=== PATIENT | male | born 1970 | race Caucasian/White ===

== ENCOUNTER 2021-01-13 15:51 | Emergency (ER) | payer OTHER, SELFPAY ==
--- NOTE | 2021-01-13 15:54 | XRR_ITS ---
PROCEDURE INFORMATION: Exam: XR Chest Exam date and time: 01/13/2021 3:54 PM Age: 50 years old Clinical indication: Shortness of breath; Additional info: SOB TECHNIQUE: Imaging protocol: XR of the chest. Views: 1 view. COMPARISON: [facility] Cervical Spine 5 views 04/16/2017 4:26 PM FINDINGS: Lungs: Unremarkable. No consolidation. Pleural spaces: Unremarkable. No pleural effusion. No pneumothorax. Heart/Mediastinum: Unremarkable. No cardiomegaly. Bones/joints: Unremarkable. XR/XR chest 1V portable [id number] IMPRESSION: No acute findings.
[2021-01-13 16:00] VITALS: BP 138/81; PULSE 89; RESP 19; TEMP 37.2; O2SAT 97; BMI 37.3
[2021-01-13 16:35] VITALS: RESP 17; O2SAT 95
--- NOTE | 2021-01-13 16:36 | PC.NURSE ---
RR even and non-labored.
[2021-01-13 16:43] LABS: SARS Covid-2 Antigen Positive (Negative)
--- NOTE | 2021-01-13 16:53 | W.ED.COVID ---
HPI - COVID General: Chief Complaint: COVID symptoms Stated Complaint: COVID SYMPTOMS/COUGHING/FEVER/WEAKNESS Time Seen by Provider: 01/13/21 16:24 Source: patient and family (daughter) Mode of arrival: ambulatory Limitations: no limitations Triage information: Has fever, cough or shortness of breath. No known COVID + exposure last 14 days History of Present Illness: HPI Narrative: Patient is a nice 50-year-old male who presents to ED today along with his daughter for concerns of COVID symptoms. Father complains of a nonproductive cough, shortness of breath, difficulty breathing, fatigue, and body aches. Symptoms been present over the past 7 days. He states he tried to go to [facility] for rapid COVID test but they were unfortunately closed. PMH significiant for diabetes. MD complaint: has COVID symptoms Prior covid testing: no COVID 19 common symptoms: positive non-productive cough, dyspnea, fatigue and body aches; negative headache(s), throat pain, nasal congestion, nausea, vomiting or diarrhea COVID 19 other sytmptoms: negative chest pain Onset (ago): day(s) Severity: moderate Pertinent comorbid conditions: diabetes and obesity Treatment prior to arrival: none COVID Results: SARS-CoV-2 Antigen (Rapid) Positive (Negative) H 01/13/21 16:00 01/13/21 Review of Systems Const: Reports: body aches and fatigue ENMT: Reports: other (loss taste/smell); Denies: throat pain, odynophagia, ear or mastoid pain, nasal discharge or nasal congestion Card: Denies: chest pain, palpitations, lightheadedness, syncope or pre-syncope Resp: Reports: dyspnea and non-productive cough; Denies: hemoptysis GI: Denies: abdominal pain, nausea, vomiting or diarrhea Musc: Denies: neck pain or back pain Skin/Breast: Denies: rash Neuro: Denies: headache(s), numbness in extremities, weakness in extremities, sensory changes or dizziness Physical Exam Const: COMMON NORMALS: no acute distress, patient oriented x3, no limitations and alert GENERAL APPEARANCE: cooperative NUTRITIONAL APPEARANCE: overweight ORIENTATION/CONSCIOUSNESS: Yes awake, Yes oriented to person, Yes oriented to place and Yes oriented to time HENMT: COMMON NORMALS: normocephalic and atraumatic HEAD & SCALP: normocephalic and atraumatic Resp: COMMON NORMALS: normal respiratory effort and clear to auscultation bilaterally AUSCULTATION: clear to auscultation bilaterally Cardio: COMMON NORMALS: regular rate and regular rhythm RATE: regular rate RHYTHM: regular rhythm Extremity: COMMON NORMALS: normal to inspection Neuro: COMMON NORMALS: patient oriented x3 SENSORIUM/ORIENTATION: Yes alert, Yes oriented to person, Yes oriented to place and Yes oriented to time Skin: COMMON NORMALS: no rashes or lesions noted GENERAL SKIN EXAM: no rashes or lesions noted Course Vital Signs: Vital signs: Vital Signs Temperature 98.2 F 01/13/21 19:00 Pulse Rate 84 01/13/21 19:00 Respiratory Rate 17 01/13/21 19:00 Blood Pressure 127/74 01/13/21 19:00 Pulse Oximetry 95 01/13/21 19:00 MDM - COVID MDM Narrative: Medical decision making narrative: Patient is COVID positive. He clinically appears well. His vital signs are stable. He is not requiring oxygen. CXR normal. Patient will be discharged and going straight to the infusion center for his monoclonal antibody infusion. Return to ED precautions given to patient and daughter. Differential Diagnosis: Differential diagnosis: Likely COVID 19 Lab Data: Labs: Lab Results 01/13/21 Range/Units 16:00 SARS-CoV-2 Ag (Rap id) Positive H (Negative) Imaging Data: CXR: Radiologist's impression: [address] [address] XRay Report Signed Patient: Michael Ravi Unit #: [id number] : 1970 Age/Sex: 50 / M ADM Date: 01/13/21 Loc: ER Room/Bed: Attending Dr: Ordering Provider/Ordering MD: Génesis Riley Date of Service: 01/13/21 Procedure(s): XR chest 1V portable [id number] Accession Number(s): [id number] Report Number: [id number] PROCEDURE INFORMATION: Exam: XR Chest Exam date and time: 01/13/2021 3:54 PM Age: 50 years old Clinical indication: Shortness of breath; Additional info: SOB TECHNIQUE: Imaging protocol: XR of the chest. Views: 1 view. COMPARISON: [facility] Cervical Spine 5 views 04/16/2017 4:26 PM FINDINGS: Lungs: Unremarkable. No consolidation. Pleural spaces: Unremarkable. No pleural effusion. No pneumothorax. Heart/Mediastinum: Unremarkable. No cardiomegaly. Bones/joints: Unremarkable. XR/XR chest 1V portable [id number] IMPRESSION: No acute findings. Dictated By: Kaye Goodwin MD Signed By: Kaye Goodwin MD Signed Date/Time: 01/13/211726 DD/ 23 COVID Results: SARS-CoV-2 Antigen (Rapid) Positive (Negative) H 01/13/21 16:00 01/13/21 Monoclonal Antibody - ED Inclusion/Exclusion Criteria age >/= 12 years, weight >/= 40kg /88lbs, symptom onset less than 10 days ago and + direct Sars-Cov-2 test less than 7-10 days ago obesity (BMI >25 or 85%til for age) and diabetes not requiring hospitalization, not requiring oxygen (if not chronically on oxygen) and no increase oxygen requirement (if chronically on oxygen) Patient education patient/family/caregiver received/reviewed fact sheet, Emergency Use Authorization/unapproved drug status discussed with patient/family/caregiver, alternatives to this treatment discussed with patient/family/caregiver, risks and benefits of medication reviewed with patient/family/caregiver, patient/family/caregiver given opportunity for questions, which were answered and patient consents to receiving Monoclonal Antibody Treatment Plan for treatment Meets criteria for Monoclonal Antibody infusion Ordering Monoclonal Antibody infusion for today Discharge Plan Discharge Clinical Impression: COVID-19 Condition: Stable Discharge Orders: Discharge ED (Routine); Ordered 01/13/21 Ordered By: Génesis Riley Coding Level of Care Code ED President Celebrity [employer] for [employer]
[2021-01-13 17:09] VITALS: PULSE 80; RESP 18; O2SAT 95
[2021-01-13] MEDS: dexamethasone 10 mg/mL INJ 6 MG IVP (17:13)
[2021-01-13 17:30] VITALS: BP 140/88; PULSE 83; RESP 18; TEMP 36.9; O2SAT 83
[2021-01-13 17:57] VITALS: BP 123/77; PULSE 78; RESP 17; TEMP 37; O2SAT 95
--- NOTE | 2021-01-13 18:49 | PC.NURSE ---
Patient resting in chair, post COVID antibiody infusion,RR even and nonlabored. Tolerating infusion w/o complications or symptoms or reaction noted.
[2021-01-13 19:00] VITALS: BP 127/74; PULSE 84; RESP 17; TEMP 36.8; O2SAT 95
== END 2021-01-13 19:00 ==
PROVIDERS: Emergency Provider Physician Assistant
DX: U07.1 COVID-19 (principal)
CPT/HCPCS: 71045; 87426; 96365; 96375; 99284; J1100

== ENCOUNTER 2021-06-26 15:57 | Outpatient (CLI) | payer OTHER, SELFPAY ==
--- NOTE | 2021-06-26 | CTR_ITS ---
PROCEDURE INFORMATION: Exam: CT Cervical Spine With Contrast Exam date and time: 06/26/2021 4:08 PM Age: 50 years old Clinical indication: Neck pain and other: Pain/tingling RT arm. Bump on RT side head; Additional info: Abnormal xray of spine TECHNIQUE: Imaging protocol: Computed tomography images of the cervical spine with intravenous contrast. Radiation optimization: All CT scans at this facility use at least one of these dose optimization techniques: automated exposure control; mA and/or kV adjustment per patient size (includes targeted exams where dose is matched to clinical indication); or iterative reconstruction. Contrast material: OMNI 300; Contrast volume: 95 ml; Contrast route: INTRAVENOUS (IV); COMPARISON: CR XR cervical spine 4-5V [id number] 05/09/2021 11:04 AM RADIATION DOSE METRICS: Total DLP (mGy-cm): 1011.72 FINDINGS: Bones/joints: Severe compression deformity/fracture of the C4 vertebral body with irregular intravertebral lucency. No additional sites of fracture or irregular lucencies throughout the cervical spine. Discs/Spinal canal/Neural foramina: There is at least moderate central canal stenosis posterior to C4 at the site of fracture. Lungs: Calcified granulomas noted in the right lung apex. Soft tissues: There is an irregular heterogeneously enhancing mass centered within the right parietal temporal calvarium measuring 4.0 x 4.4 cm series 3, image 4. There is both intracranial and extracranial extension of the mass with erosion of the inner and outer tables of the calvarium and mass effect on the adjacent right parietal and temporal lobes. CT/CT cervical spine w con [id number] IMPRESSION: 1. Pathologic severe compression fracture of C4 with irregular lucent lesion, most likely a metastatic lesion. This is causing at least moderate central canal stenosis posterior to C4 at the site of fracture. Correlate clinically for signs of cord compression in which case further evaluation with MRI cervical spine is recommended. 2. Irregular heterogeneously enhancing mass centered within the right parietal temporal calvarium. There is both intracranial and extracranial extension of the mass with mass effect on the adjacent right parietal and temporal lobes. This is also most likely a metastatic lesion.
[2021-06-26] MEDS: iohexol 300 mg/mL 100 mL Btl IV (16:23)
== END 2021-06-26 15:58 | disposition home or self-care (01) ==
LOC: RAD 16:02
PROVIDERS: PCP Family Medicine; Visit Provider Family Medicine
DX: R93.7 Abnormal findings on diagnostic imaging of other parts of musculoskeletal system (principal); M84.48XA Pathological fracture, other site, initial encounter for fracture
CPT/HCPCS: 72126

== ENCOUNTER 2021-06-27 07:50 | Inpatient (IN) | payer OTHER, SELFPAY ==
[2021-06-27] VITALS (9 sets, daily range): BP systolic 128–131; BP diastolic 78–86; PULSE 93–103; RESP 16–22; TEMP 36.8–37; O2SAT 90–94; BMI 35.9
--- NOTE | 2021-06-27 07:57 | ED_ITS ---
HPI - General Adult General: Chief complaint: Headache Stated complaint: neck and head pain Time Seen by Provider: 06/27/21 07:56 History of Present Illness: HPI narrative: 50-year-old male presents emergency room with complaint of neck pain headache and a right parietal mass. He had a CT of his cervical spine yesterday which showed metastatic lesion to the C4 vertebrae this had been seen previously in early May. It was noted in the radiology report and primary care doc was working on getting an MRI done but there were some logistical issues evidently with prior authorization as well as some difficulty for the patient due to claustrophobia. He is coming in with severe head and neck pain today. Rates the pain 8 out of 10. He denies any vision changes he has not had any seizures he has had a little bit of difficulty speaking. He has some pain in his right eye as well. He has no known previous cancers. Patient had COVID in January 2021. He had noticed over the last several weeks with progressive loss of function in his right shoulder p articularly with abduction he can get out to about 75 degrees but unable to go any higher he has also noticed weakness progressively worsening in the right arm. Onset (ago): week(s) Location: head and neck Radiation: extremity (Right upper extremity) Quality: burning Pain Consistency: constant Relieving factors: medication Exacerbating factors: movement Associated symptoms: Reports weakness; Deny chest pain, confusion, cough, diaphoresis, decreased appetite, dyspnea, fevers/chills, headache(s), malaise, nausea, rash, palpitations, seizures, short of breath, syncope or vomiting Treatments prior to arrival: other (Prescription pain medication) Review of Systems Const: Denies: malaise or diaphoresis ENMT: Denies: throat pain, ear or mastoid pain, nasal discharge or nasal congestion Card: Denies: chest pain, palpitations or syncope Resp: Denies: dyspnea GI: Denies: nausea or vomiting : Denies: flank pain, dysuria, urinary frequency or urinary urgency Skin/Breast: Denies: rash Neuro: Denies: headache(s) or confusion PFS ED PFSH: Medical History (Updated 06/27/21 @ 11:48 by Ray Ferrer DO) Diabetes mellitus GERD (gastroesophageal reflux disease) Gout Family History (Updated 06/27/21 @ 10:58 by Darell De Anda MD) Other CAD (coronary artery disease) Cancer Diabetes Social History (Updated 06/27/21 @ 10:58 by Darell De Anda MD) Smoking and tobacco status: never smoked Alcohol intake: current Physical Exam Const: COMMON NORMALS: no acute distress GENERAL APPEARANCE: cooperative and comfortable ORIENTATION/CONSCIOUSNESS: Yes awake, Yes oriented to person, Yes oriented to place and Yes oriented to time HENMT: COMMON NORMALS: atraumatic and hearing grossly normal bilaterally HEAD & SCALP: atraumatic OTHER: Obvious deformity in the right parietal area with a soft tissue mass that is approximately 6 x 3 cm Neck/C-Spine: COMMON NORMALS: no JVD Resp: COMMON NORMALS: normal respiratory effort, No retractions, No use of accessory muscles and clear to auscultation bilaterally AUSCULTATION: clear to auscultation bilaterally Cardio: COMMON NORMALS: no JVD, regular rate, regular rhythm and No murmurs present (Cardio) RATE: regular rate RHYTHM: regular rhythm GI: COMMON NORMALS: Soft to palpation and No hepatosplenomegaly present AUSCULTATION: Yes normoactive bowel sounds PALPATION: Yes Soft to palpation, No Tenderness to palpation present (GI), No Guarding due to palpation present (GI) and Yes No hepatosplenomegaly present Extremity: COMMON NORMALS: normal to inspection, capillary refill normal, no clubbing, cyanosis or edema, no calf tenderness and no pedal edema NARRATIVE EXTREMITY EXAM: Loss of abduction in the right shoulder Neuro: SENSORIUM/ORIENTATION: Yes oriented to person, Yes oriented to place and Yes oriented to time Skin: COMMON NORMALS: no rashes or lesions noted GENERAL SKIN EXAM: no rashes or lesions noted Course Vital Signs: Vital signs: Vital Signs Temperature 98.6 F 06/27/21 07:59 Pulse Rate 93 06/27/21 09:25 Respiratory Rate 16 06/27/21 09:25 Blood Pressure 130/79 06/27/21 09:25 Pulse Oximetry 93 06/27/21 09:25 MDM - General Adult MDM Narrative: Medical decision making narrative: Patient has an unstable C4 metastatic lesion clinically appears to be creating neural impingement. I talked to his primary all of this is relatively new particularly the peripheral neural impingement signs. Talk to Dr. Quevedo will admit the patient to the hospitalist for pain control Dr. Quevedo will consult stabilize her fracture he should be able to get tissue for pathology at that time as well. Discussed with the patient and the family. Also reviewed with him all the CT and laboratory findings. Particular the areas of concern of metastasis. Discussed with Dr. Carpenter and with Dr. Chandler as well. Serum plasmapheresis with reflex light chain studies were ordered. Also ordered a PSA. Discussed with Dr. Driver he has written orders. Lab Data: Labs: Lab Results 06/27/21 06/27/21 06/27/21 08:56 08:56 08:56 WBC 5.0 10^3/uL 10^3/ uL (4.0-10.0) RBC 3.80 10^6/uL L 10 ^6/uL (4.1-5.3) Hgb 13.6 g/dL g/dL (11.7-16.6) Hct 38.5 % L % (42.0-52.0) MCV 101.3 fl H fl (80-94) MCH 35.8 pg H pg (28.0-34.0) MCHC 35.3 g/dL g/dL (30.0-36.0) RDW 11.9 % L % (12.1-15.1) Plt Count 104 10^3/cmm L 10 ^3/cmm (130-400) MPV 11.3 fL H fL (7.4-10.4) Neut % (Auto) 67.9 % % Lymph % (Auto) 15.1 % % [place] % (Auto) 12.0 % % Eos % (Auto) 4.4 % % Baso % (Auto) 0.2 % % Neut # (Auto) 3.38 10^3/uL 10^3 /uL (1.8-7.7) Lymph # (Auto) 0.8 10^3/uL 10^3/ uL (0.8-4.8) [place] # (Auto) 0.6 10^3/uL 10^3/ uL (0.2-0.9) Eos # (Auto) 0.2 10^3/uL 10^3/ uL (0.0-0.8) Baso # (Auto) 0.0 10^3/uL 10^3/ uL (0.0-0.1) Nucleated RBC % (a uto) 0 % % Nucleated RBCs # 0.0 /100WBC /100W BC PT 15.10 SECONDS H S ECONDS (12.1-14.9) INR 1.16 (0.8-1.2) APTT 33.0 SECONDS SECO NDS (23.9-36.7) Sodium 128 mmol/L L mmol /L (136-145) Potassium 4.2 mmol/L mmol/L (3.5-5.1) Chloride 95 mmol/L L mmol/ L (98-107) Carbon Dioxide 19 mmol/L L mmol/ L (22-29) Anion Gap 18.2 (5-19) BUN 10 mg/dL mg/dL (6-20) Creatinine 0.7 mg/dL mg/dL (0.7-1.2) GFR Calculation 118.9 mL/min mL/m in (90-130) Glucose 159 mg/dL H mg/dL (65-115) Calculated Osmolal ity 268 mOsm/kg L mOs m/kg (285-295) Calcium 8.4 mg/dL L mg/dL (8.5-10.5) Total Bilirubin 0.8 mg/dL mg/dL (0.15-1.2) AST 39 U/L U/L (0-40) ALT 30 U/L U/L (0-41) Alkaline Phosphata se 129 IU/L IU/L (40-130) Total Protein 6.9 g/dL g/dL (6.6-8.7) Albumin 3.4 g/dL L g/dL (3.5-5.2) Globulin 3.5 g/dL g/dL (1.3-4.6) Prostate Specific Ag 06/27/21 08:56 WBC RBC Hgb Hct MCV MCH MCHC RDW Plt Count MPV Neut % (Auto) Lymph % (Auto) [place] % (Auto) Eos % (Auto) Baso % (Auto) Neut # (Auto) Lymph # (Auto) [place] # (Auto) Eos # (Auto) Baso # (Auto) Nucleated RBC % (a uto) Nucleated RBCs # PT INR APTT Sodium Potassium Chloride Carbon Dioxide Anion Gap BUN Creatinine GFR Calculation Glucose Calculated Osmolal ity Calcium Total Bilirubin AST ALT Alkaline Phosphata se Total Protein Albumin Globulin Prostate Specific Ag 0.566 ng/mL ng/mL (0-4) Discharge Plan Discharge Patient Disposition: Admitted As Inpatient Admit Provider: Darell De Anda Clinical Impression: Cervical spine fracture, Multiple lesions of metastatic malignancy, Right arm weakness, Hyponatremia, Thrombocytopenia, Anxiety, Diabetes mellitus Condition: Stable Coding Level of Care Code ED [employer]fit[employer] Supervisor for Chg Fwd Exam Comprehensive
--- NOTE | 2021-06-27 07:58 | XR_ITS ---
WS: [id number] Exam: XR chest 1V portable [id number] Date/Time of Exam: 06/27/2021 8:00 AM Reason For Exam: dyspnea/cough Comparison 01/13/2021. The lungs are clear and fully expanded. Normal cardiomediastinal silhouette. No pleural effusions. Sm oothly marginated pleural-based mass seen along the upper lateral left pleural cavity is a new findin g since previous study. Normal bony structures. Recommendations: Nonemergent contrast CT scan of the chest should be considered for further workup. XR/XR chest 1V portable [id number] IMPRESSION: 1. Smoothly marginated pleural-based mass along the upper lateral left pleural cavity. This is a new finding since prior study. Remaining aspects the chest ar e normal.
--- NOTE | 2021-06-27 08:13 | CT_ITS ---
WS: [id number] CT HEAD WITH AND WITHOUT CONTRAST HISTORY: R parietal mass TECHNIQUE: Noncontrast 2.5 mm axial images obtained from the vertex to the skull base. Additional cindi ging performed at 2.5 mm axial images status post IV contrast. Bone and soft tissue windows are revie wed. All CT scans at [facility] use at least one of these dose optimization techniques: autom ated exposure control; mA and/or kV adjustment per patient size (includes targeted exams where dose i s matched to clinical indication); or iterative reconstruction. CONTRAST: Omnipaque 300; 95 mL IV. DLP: 950.93 mGy.cm COMPARISON: None available. Noncontrast evaluation is negative for acute hemorrhage. Mild decreased attenuation periventricular w juan david matter from chronic ischemic disease. Small amount of cerebral edema in the parietal lobe. No in farct. There is a large enhancing destructive mass centered predominantly in the RIGHT parietal bone. There are a few scattered foci of increased density which are probably calcifications seen on the unenhance d study. On the postcontrast images there is moderate enhancement of this mass which is destroying th e inner and outer tables of the skull and extending into the brain. There is enhancement and displace ment of the dura. There is actually a focal nodule which appears to extend through the dura into the brain parenchyma. There is adjacent cerebral edema surrounding the lesion. This destructive mass exte nds over length of 4.6 cm and transversely by 4.0 and anterior posterior by 4.4 cm. The nodular compo nent that may have extended through the dura measures 1.5 x 1.2 cm. There are a few additional very s mall lytic lesions throughout the skull which could be an early metastatic sites or benign skull lesi ons. Dural venous sinuses are normally enhancing. Visualized chitimacha of Prasad is unremarkable. Paranasal sinuses as visualized: Mucoperiosteal thickening in the maxillary sinuses. Mastoid air cells: Clear. CT/CT head wo/w con [id number] IMPRESSION: 1. 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 Soft tissue mass extends into the dura. There is dural enhancement and displacement with a small focal nodule appears to extend through the dura into the parietal lobe. 2. Small amount of cerebral edema surrounding the metastatic nodule. 3. No intracranial hemorrhage. 4. There are a few and additional nonspecific lucencies within the skull which could be additional metastatic sites which are very small. 5. No hydrocephalus or midline shift. Notified Ray Ferrer DO at 06/27/2021 9:25 AM.
--- NOTE | 2021-06-27 08:17 | XR_ITS ---
WS: [email or web address] Exam: XR hip LT 2-3V wo/w pel* [id number] Date/Time of Exam: 06/27/2021 8:18 AM Reason For Exam: hip pain No hip fracture or dislocation. 4.2 cm lytic lesion in the left iliac bone. Soft tissues are unremark able. XR/XR hip LT 2-3V wo/w pel* [id number] IMPRESSION: 1. No acute hip fracture or dislocation. 2. 4.2 cm lytic lesion in the left iliac bone. This may represent bone metastas is. Primary bone malignancy also possible but less likely.
--- NOTE | 2021-06-27 08:27 | CT_ITS ---
WS: [id number] CT CHEST WITH INTRAVENOUS CONTRAST HISTORY: chest mass TECHNIQUE: Contiguous 5 mm axial imaging performed on the thorax. Coronal and sagittal reformats are submitted. All CT scans at [facility] use at least one of these dose optimization techniques: automated exposure control; mA and/or kV adjustment per patient size (includes targeted exams where dose is matched to clinical indication); or iterative reconstruction. CONTRAST: Omnipaque 300; 95 mL IV. DLP: 995.33 mGy.cm COMPARISON: Chest radiograph 06/27/2021 Lungs and central airway: No focal pulmonary mass or nodule. No pneumonia. No atelectasis. Pleura: No pleural effusion. Heart and pericardium: Normal size heart with no pericardial effusion. Mediastinum and gray: There are a few small mediastinal and hilar lymph nodes. Subcarinal lymph node measures 9 mm in short axis diameter but appears slightly necrotic. Vessels: Normal size aortic and pulmonary artery. No coronary artery calcifications. There is a large destructive lesion involving the lateral fourth rib. There is bone destruction and i ncreased soft tissue surrounding the rib. The entire mass measures 5.5 x 3.9 cm and is extending to i nvolve the pleura. There are multiple additional metastatic lesions. Metastatic site within the LEFT lateral T4 vertebral body. Greater than 50% lytic, expansile involvement of the T10 vertebral body. T umor is extending through the posterior vertebral body and is probably in about in the thecal sac. Fo leonard metastatic site in the posterior T11 spinous process. There is an additional soft tissue mass wit h bone expansion and soft tissue tumor involving the inferior border of the RIGHT scapula. This mass measures 5.[address]/CT chest w con* [id number] IMPRESSION: 1. Numerous expansile metastatic disease within the thorax. There are lytic an d expansile lesions within the LEFT lateral fourth rib, inferior RIGHT scapula, mid T10 vertebral body. The T10 vertebral body lesion is encroaching upon the thecal sac. Consider differential of metastatic renal carcinoma, thyroid carcin cr, hepatocellular carcinoma and melanoma. Several of these lesions should be accessible for biopsy including the RIGHT scapular lesion. 2. Additional smaller nonexpansile lesions within the T4 vertebral body and th e spinous process of T11. 3. No significant mediastinal adenopathy. There is a single subcarinal 9 mm ly mph node that may be necrotic.
[2021-06-27] MEDS: iohexol 300 mg/mL 100 mL Btl IV (08:44)
[2021-06-27] MEDS: morphine 4 mg/mL SDV 1 mL IVP ×2 (08:45→09:23)
[2021-06-27] MEDS: dexamethasone 10 mg/mL INJ IVP (08:45)
[2021-06-27] MEDS: ondansetron 2 mg/ML SDV 2 mL 4 MG IVP (08:45)
[2021-06-27 09:06] LABS: Basophils % 0.2 %; Eosinophils # 0.2 10^3/uL (0.0-0.8); Eosinophils % 4.4 %; Hematocrit 38.5 % (42.0-52.0); Hemoglobin 13.6 g/dL (11.7-16.6); Lymphocytes # 0.8 10^3/uL (0.8-4.8); Lymphocytes % 15.1 %; Mean Corpuscular HGB Conc 35.3 g/dL (30.0-36.0); Mean Corpuscular Hemoglobin 35.8 pg (28.0-34.0); Mean Corpuscular Volume 101.3 fl (80-94); Mean Platelet Volume 11.3 fL (7.4-10.4); Monocytes # 0.6 10^3/uL (0.2-0.9); Neutrophils # 3.38 10^3/uL (1.8-7.7); Neutrophils % 67.9 %; Nucleated Red Blood Cells % 0 %; Platelet Count 104 10^3/cmm (130-400); Red Cell Distribution Width 11.9 % (12.1-15.1)
[2021-06-27 09:32] LABS: INR 1.16 (0.8-1.2)
[2021-06-27 09:41] LABS: Alanine Aminotransferase 30 U/L (0-41); Albumin Level 3.4 g/dL (3.5-5.2); Alkaline Phosphatase 129 IU/L (40-130); Anion Gap 18.2 (5-19); Aspartate Amino Transferase 39 U/L (0-40); Blood Urea Nitrogen 10 mg/dL (6-20); Calcium 8.4 mg/dL (8.5-10.5); Carbon Dioxide 19 mmol/L (22-29); Chloride 95 mmol/L (98-107); Globulin 3.5 g/dL (1.3-4.6); Glomerular Filtration Rate 118.9 mL/min (90-130); Glucose 159 mg/dL (65-115); Osmolality Calculated 268 mOsm/kg (285-295); Potassium 4.2 mmol/L (3.5-5.1); Sodium 128 mmol/L (136-145); Total Bilirubin 0.8 mg/dL (0.15-1.2); Total Protein 6.9 g/dL (6.6-8.7)
--- NOTE | 2021-06-27 09:59 | PC.PHAR ---
pts daughter verified pts medications
[2021-06-27 10:12] LABS: Prostate Specific Antigen 0.566 ng/mL (0-4)
--- NOTE | 2021-06-27 10:45 | P.HP_ITS ---
Providers/Chief Complaint Primary Care Provider: Jasvir Thomas MD Chief Complaint: neck and head pain History of Present Illness Michael Ravi is a 50 year old male who presents to the ER with neck pain, headache, and right arm weakness. His neck started hurting around January or February 2021. His right arm started feeling weak and he had difficulty raising his shoulder around 02/2021. He got a cervical spine X-ray in 05/2021 which showed some lucency in C4. The plan was to get a follow-up MRI but the patient was unable to go through with this due to claustrophobia. He received a cervical spine CT yesterday which showed severe compression C4 fracture with irregular lucent lesion. He also noticed a bump appear on the right side of his head about 4-5 weeks ago which has gotten bigger in the past 7-10 days. He has had a headache ever since he had COVID back in 01/2021 and states that recently the headache has been primarily located near his right mandaen region. 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 He is able to ambulate at home and has no trouble swallowing. He does have some right-sided facial pain when he bites down. He is able to control his urine and states that his hand strength has been normal. Denies any sensory deficits in his legs. He is not vaccinated and states that he had COVID back in 07/2019 and 01/2021. In the emergency department he received some morphine, as well as dexamethasone. Review of Systems General: Reports: 10 or more systems reviewed and unremarkable except in HPI and below Const: Reports: fatigue; Denies: fever(s) or chills Eyes: Denies: change in vision ENMT: Denies: throat pain Card: Denies: chest pain Resp: Denies: dyspnea GI: Denies: abdominal pain : Denies: flank pain Musc: Reports: neck pain Skin/Breast: Denies: rash Neuro: Reports: headache(s) Psych: Denies: memory loss Endo: Denies: polyuria Reji/Lymph: Denies: easy bruising All/Imm: Denies: urticaria Medications/Allergies Home Medications Medication Instructions Recorded Confirmed Last Taken Type dulaglutide [Trulicity] 1.5 mg SUBCUT Q7D 06/27/21 06/27/21 Unknown History hydrocodone-acetaminophen 1 - 2 tab PO QID PRN 06/27/21 06/27/21 Unknown History ibuprofen 800 mg PO Q8H PRN 06/27/21 06/27/21 Unknown History metformin 500 mg PO DAILY@12 06/27/21 06/27/21 Unknown History naproxen sodium [Aleve] 220 mg PO Q12H PRN 06/27/21 06/27/21 Unknown History omeprazole-sodium bicarbonate 1 cap PO DAILY 06/27/21 06/27/21 Unknown History [Zegerid OTC] Allergies Allergy/AdvReac Type Severity Reaction Status Date / Time No Known Allergies Allergy Verified 06/27/21 09:59 PFSH Acute PFSH: Medical History (Updated 06/27/21 @ 11:24 by Darell De Anda MD) Diabetes mellitus GERD (gastroesophageal reflux disease) Gout Family History (Updated 06/27/21 @ 10:58 by Darell De Anda MD) Other CAD (coronary artery disease) Cancer Diabetes Social History (Updated 06/27/21 @ 10:58 by Darell De Anda MD) Smoking and tobacco status: never smoked Alcohol intake: current Other PFSH information: Denies any significant surgeries. Reports he read drinks around 3-4 drinks a day. Family history was significant for colon cancer in a sibling. Parent with lung cancer. Vitals/I&O/Wt Last Vital Signs Temp 98.6 F 06/27/21 07:59 Pulse 93 06/27/21 09:25 Resp 16 06/27/21 09:25 BP 130/79 06/27/21 09:25 Pulse Ox 93 06/27/21 09:25 Weight last 48 hrs Weight 113.398 kg Physical Exam Narrative: EXAM NARRATIVE: General exam no distress HEENT: Soft tissue mass felt right parietal area. Oropharynx generally clear. Neck, patient currently in c-collar Cardiovascular regular rate and rhythm, no murmur Lungs clear no wheezing or crackles Abdomen soft nontender positive bowel sounds. Obese. No obvious organomegaly. exam was deferred Extremities no cyanosis clubbing or edema. Skin with some erythematous macules and excoriation anterior shins Neuro: Good strength upper and lower extremities. Cerebellar function not te sted. Restriction moving right arm, above breast level. Data : 06/27/21 08:56 06/27/21 08:56 Other data: MCV slightly high at 101 INR 1.16, PTT 33 LFTs normal Calcium 8.4, albumin 3.4 PSA is normal Serum protein electrophoresis is pending Chest CT with multiple expansile metastatic lesions in the thorax, involving the right scapula, T10, T11, left fourth rib, in addition to several other areas. Hip and pelvis x-ray demonstrate a left iliac lesion Head CT demonstrates a destructive metastatic skull lesion right parietal bone extending into the dura with a small focal extension through the dura into the parietal lobe. Small amount of cerebral edema. A few other nonspecific lucencies in the skull are also noted. Cervical CT demonstrated pathologic severe compression C4, likely metastatic, with moderate cannel stenosis. A&P Assessment and plan (1) Cervical spine fracture: This appears to be a pathologic severe compression fracture of C4. C-collar has been placed Orthopedic spine surgery consultation Etiology of likely malignancy under investigation. Biopsy can be performed of bone affected during time of surgery. Status: Acute (2) Right arm weakness: This may be more mechanical, and impingement in nature than from his neck lesion. Significant tumor is noted right scapular lesion that could cause impingement upon the rotator cuff. He has good distal strength Status: Acute (3) Multiple lesions of metastatic malignancy: Multiple lesions are noted Significant lesion right parietal area with extension into the dura, and parietal lobe with a small amount of surrounding edema Dexamethasone 10 mg IV given in the emergency department. We will continue dexamethasone every 6 hours while in the hospital, with plan to discharge on 4 mg twice daily ultimately. Differential diagnosis is large, including multiple myeloma, thyroid cancer, prostate cancer, melanoma, renal cell cancer CT abdomen and pelvis will also need to be obtained. As he received contrast today we will defer this until tomorrow. This will need to be with contrast. PSA, CEA, AFP, urinalysis ordered Status: Acute (4) Hyponatremia: Relatively mild hyponatremia currently. May be related to malignancy Check TSH, cortisol Repeat sodium level tomorrow At this point no saline, fluid restriction, etc. is warranted. Status: Acute (5) Thrombocytopenia: May be secondary to malignancy. Platelet count 104 currently. Continue to monitor. Status: Acute (6) Macrocytosis: Check B12 and folate Initiate thiamine May be related to his alcohol intake Status: Acute (7) Anxiety: Patient reports significant anxiety. Add Ativan as needed Status: Acute (8) Diabetes mellitus: Sliding scale insulin Consistent carb diet Status: Acute Additional A&P Information History of alcohol use. Doubt he will have withdrawal but consider CIWA protocol if this occurs Multiple other medical problems as outlined in past medical history Full code SCDs for DVT prophylaxis, possible spinal surgery in the next 24 hours. High risk for anticoagulation currently secondary to this as well as thrombocytope rylie. Attestations Medical Necessity Statement*: Will need greater than 2 midnight stay for evaluation and treatment of pathologic fracture of C4 which needs stabilization. 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
[2021-06-27] MEDS: LORazepam 2 mg/mL INJ 1 mL IVP (10:52)
[2021-06-27 11:50] LABS: Estmated Average Glucose 128; Hemoglobin A1C 6.1 % (4.0-6.0)
[2021-06-27 11:57] LABS: Carcinoembryonic Antigen 2.1 ng/mL (0.0-4.7)
[2021-06-27 12:35] LABS: Vitamin B12 1949 pg/mL (232-1245)
[2021-06-27 12:48] LABS: Folate Level 10.5 ng/mL (4.5-32.2)
[2021-06-27 13:15] LABS: Cortisol Random 4.34 ug/dL (2.47-19.5)
--- NOTE | 2021-06-27 15:36 | PM.CONSULT ---
Providers/Reason For Consult Consulting Physician/Specialty*: hospitalist Reason for Consult*: C4 tumor Attending Physician: Darell De Anda MD Primary Care Provider: Jasvir Thomas MD History of Present Illness History of Present Illness Michael Ravi is a 50 year old male presents to the ER with neck pain, headache, and right arm weakness. His neck started hurting around January or February 2021. His right arm started feeling weak and he had difficulty raising his shoulder around 02/2021. He got a cervical spine X-ray in 05/2021 which showed some lucency in C4. The plan was to get a follow-up MRI but the patient was unable to go through with this due to claustrophobia. He received a cervical spine CT yesterday which showed severe compression C4 fracture with irregular lucent lesion. He also noticed a bump appear on the right side of his head about 4-5 weeks ago which has gotten bigger in the past 7-10 days. He has had a headache ever since he had COVID back in 01/2021 and states that recently the headache has been primarily located near his right mosque region. 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 He is able to ambulate at home and has no trouble swallowing. He does have some right-sided facial pain when he bites down. He is able to control his urine and states that his hand strength has been normal. Denies any sensory deficits in his legs. He is not vaccinated and states that he had COVID back in 07/2019 and 01/2021. Review of Systems General: Reports: 10 or more systems reviewed and unremarkable except in HPI and below Const: Reports: fatigue; Denies: fever(s), chills, malaise or diaphoresis Eyes: Denies: change in vision ENMT: Denies: throat pain, ear or mastoid pain, nasal discharge or nasal congestion Card: Denies: chest pain, palpitations or syncope Resp: Denies: dyspnea GI: Denies: abdominal pain, nausea or vomiting : Denies: flank pain, dysuria, urinary frequency or urinary urgency Musc: Reports: neck pain Skin/Breast: Denies: rash Neuro: Reports: headache(s); Denies: confusion Psych: Denies: memory loss Endo: Denies: polyuria Reji/Lymph: Denies: easy bruising All/Imm: Denies: urticaria Medications/Allergies Home Medications Medication Instructions Recorded Confirmed Last Taken Type dulaglutide [Trulicity] 1.5 mg SUBCUT Q7D 06/27/21 06/27/21 Unknown History hydrocodone-acetaminophen 1 - 2 tab PO QID PRN 06/27/21 06/27/21 Unknown History ibuprofen 800 mg PO Q8H PRN 06/27/21 06/27/21 Unknown History metformin 500 mg PO DAILY@12 06/27/21 06/27/21 Unknown History naproxen sodium [Aleve] 220 mg PO Q12H PRN 06/27/21 06/27/21 Unknown History omeprazole-sodium bicarbonate 1 cap PO DAILY 06/27/21 06/27/21 Unknown History [Zegerid OTC] Allergies Allergy/AdvReac Type Severity Reaction Status Date / Time No Known Allergies Allergy Verified 06/27/21 09:59 PFSH Acute PFSH: Medical History (Updated 06/27/21 @ 15:39 by Andrew Quevedo DO) Diabetes mellitus GERD (gastroesophageal reflux disease) Gout Family History (Updated 06/27/21 @ 10:58 by Darell De Anda MD) Other CAD (coronary artery disease) Cancer Diabetes Social History (Updated 06/27/21 @ 10:58 by Darell De Anda MD) Smoking and tobacco status: never smoked Alcohol intake: current Other PFSH information: Denies any significant surgeries. Reports he read drinks around 3-4 drinks a day. Family history was significant for colon cancer in a sibling. Parent with lung cancer. Vitals/I&O/Wt Last Vital Signs Temp 98.6 F 06/27/21 07:59 Pulse 95 06/27/21 14:50 Resp 16 06/27/21 14:50 BP 130/86 06/27/21 14:50 Pulse Ox 93 06/27/21 14:50 Weight last 48 hrs Weight 250 lb Physical Exam Narrative: EXAM NARRATIVE: EXAM NARRATIVE: General exam no distress HEENT: Soft tissue mass felt right parietal area. Oropharynx generally clear. Neck, patient currently in c-collar Cardiovascular regular rate and rhythm, no murmur Lungs clear no wheezing or crackles Abdomen soft nontender positive bowel sounds. Obese. No obvious organomegaly. exam was deferred Extremities no cyanosis clubbing or edema. Skin with some erythematous macules and excoriation anterior shins Neuro: Good strength upper and lower extremities. Cerebellar function not tested. Restriction moving right arm, above breast level. 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
[2021-06-27] MEDS: morphine 4 mg/mL SDV 1 mL 2 MG IVP (18:23)
[2021-06-27] MEDS: dexamethasone 4 mg/mL INJ IVP (18:25)
[2021-06-27] MEDS: thiamine 100 mg Tablet PO (18:27)
[2021-06-27] MEDS: multivitamin therapeutic Tablet 1 TAB PO (18:27)
[2021-06-27] MEDS: LORazepam 2 mg/mL INJ 1 mL 1 MG IVP (19:03)
[2021-06-27 20:17] LABS: Bilirubin Urine Neg (Negative); Blood Urine Neg (Negative); Glucose Urine UA 1+ (Normal); Ketones Urine Negative (Negative); Leukocyte Esterase Urine Negative (Negative); Nitrate Urine Negative (Negative); Protein Urine Neg (Negative); Urine Appearance Clear (CLEAR); Urine Color Yellow (Yellow); Urobilinogen Urine 1 mg/dL (Negative); pH Urine 7 (5-7)
[2021-06-27 20:19] LABS: Add Urine Culture? No; Bacteria Urine TRACE /hpf
--- NOTE | 2021-06-27 20:24 | PC.NURSE ---
i reported high pulse 101 to nurse
[2021-06-27 21:32] LABS: Glucose Point of Care 335 mg/dL (70-110)
[2021-06-27 21:33] LABS: Glucose Point of Care 237 mg/dL (70-110)
[2021-06-27] MEDS: insulin lispro 100 unit/1 mL SUBCUT (21:34)
[2021-06-28] VITALS (23 sets, daily range): BP systolic 112–147; BP diastolic 70–93; PULSE 78–100; RESP 12–185; TEMP 36.2–36.8; O2SAT 89–98
--- NOTE | 2021-06-28 | SCC_ITS ---
Procedure Done: 1. Anterior diskectomy C3/4 2. Anterior discectomy C4/5 3. corpectomy C4 greater than 50% 4. Insertion of Corpectomy cage C3-C5 5. Instrumentation with anterior plate from C3-C5 6. Use of allograft 7. Biopsy of C4 tumor 35.1 seconds of fluoroscopic guidance, for a cumulative dose of 1.87 mGy, was provided to Dr. Quevedo by the radiology department. C-arm images of the cervical spine were saved for the patient's permanent record. TARAD
--- NOTE | 2021-06-28 | XR_ITS ---
WS: [id number] Exam: XR cervical spine 3V* [id number] Date/Time of Exam: 06/28/2021 12:00 AM Reason For Exam: acdf Limited intraoperative lateral and AP C-arm images of the mid cervical spine are submitted for evalua tion. There is anterior plate and screw fixation of the C-spine from C3 to C5. An intervening spacer has be en positioned at the C4 level. The exact location of the spacer is undetermined. There may be some po sterior displacement of the inferior aspect of the spacer. An endotracheal tube is visualized in the airway. No other significant finding on this limited exam.
[2021-06-28] MEDS: dexamethasone 4 mg/mL INJ IVP ×4 (00:15→23:56)
[2021-06-28] MEDS: LORazepam 2 mg/mL INJ 1 mL 1 MG IVP ×3 (00:15→22:53)
[2021-06-28] MEDS: morphine 4 mg/mL SDV 1 mL 2 MG IVP ×5 (00:15→23:05)
[2021-06-28 06:28] LABS: Glucose Point of Care 248 mg/dL (70-110)
[2021-06-28 07:17] LABS: Basophils % 0.1 %; Hematocrit 40.5 % (42.0-52.0); Hemoglobin 14.5 g/dL (11.7-16.6); Lymphocytes # 0.6 10^3/uL (0.8-4.8); Lymphocytes % 5.9 %; Mean Corpuscular HGB Conc 35.8 g/dL (30.0-36.0); Mean Corpuscular Volume 100.5 fl (80-94); Mean Platelet Volume 11.9 fL (7.4-10.4); Monocytes # 0.4 10^3/uL (0.2-0.9); Monocytes % 4.5 %; Neutrophils % 88.9 %; Nucleated Red Blood Cells % 0 %; Platelet Count 129 10^3/cmm (130-400); Red Blood Count 4.03 10^6/uL (4.1-5.3); Red Cell Distribution Width 11.8 % (12.1-15.1); White Blood Count 9.6 10^3/uL (4.0-10.0)
[2021-06-28 07:33] LABS: Blood Urea Nitrogen 16 mg/dL (6-20); Calcium 8.9 mg/dL (8.5-10.5); Carbon Dioxide 20 mmol/L (22-29); Chloride 99 mmol/L (98-107); Glucose 237 mg/dL (65-115); Osmolality Calculated 285 mOsm/kg (285-295); Sodium 133 mmol/L (136-145)
[2021-06-28 07:37] LABS: Anion Gap 19.1 (5-19); Potassium 5.1 mmol/L (3.5-5.1)
[2021-06-28] MEDS: pantoprazole DR 40 mg Tablet PO (09:58)
[2021-06-28 10:53] LABS: PROTEIN, TOTAL 6.8 g/dL (6.1-8.1)
--- NOTE | 2021-06-28 11:52 | ANES.PREANE2 ---
Pre-Anesthetic Assessment Pre-Anesthetic Assessment: Height/Weight: Height 1.78 m Weight 113.398 kg Temp Pulse Resp BP Pulse Ox 97.2 F L 98 18 136/87 98 06/28/21 11:35 06/28/21 11:35 06/28/21 11:35 06/28/21 11:35 06/28/21 11:35 Preop Diagnosis: Malignancy Proposed Procedure: Operation Date: 06/28/21 12:00 Proposed Procedures p Anterior Cervical Discectomy & Fusion C3-C5 ACDF, C4 CORPECTOMY(Not Applicable) - Andrew Quevedo, DO Familial anesthetic complications: None Was Beta Berta taken within 24 hours: N/A Was Clonidine taken within 24 hours: N/A Last intake: > 8hrs Social: Social History: Alcohol (up to 6 beers a night) and Tobacco (chews) Exam: Pre-Anes Outpt Exam: alert, oriented x 3, clear to auscultation bilaterally and regular rate & rhythm Airway: MP: 3 Dentition: Full Additional comments: cervical collar in place GI: GI: GERD Metabolic: Metabolic: DM and Morbid obesity Musc/skel: Comments: malignancy Neuropsych: Neuropsych: Anxiety Anesthetic Plan: ASA status: 4 Anesthesia: General Risk of > 500 ml blood loss (7ml/kg in children): No Medications/Allergies Current Medications: Current Medications Generic Name Dose Route Start Last Admin Trade Name Freq PRN Reason Stop Dose Admin Dexamethasone 4 mg 06/27/21 18:05 06/28/21 06:46 Dexamethasone 4 Mg/Ml Inj IVP 4 mg Q6H ARIEL Administration Insulin Human Lisp ro 0 unit 06/27/21 18:05 06/28/21 11:24 Insulin Lispro 1 00 Unit/1 Ml SUBCUT Not Given WM&BEDTIME ARIEL Protocol Lorazepam 1 mg 06/27/21 18:05 06/28/21 06:47 Lorazepam 2 Mg/M l Inj 1 Ml IVP 1 mg Q6H PRN Administration ANXIETY Morphine Sulfate 2 mg 06/27/21 18:06/28/21 10:43 Morphine 4 Mg/Ml Sdv 1 Ml IVP 2 mg Q4H PRN Administration SEVERE PAIN Pantoprazole Sodiu m 40 mg 06/28/21 09:00 06/28/21 09:[address] 40 Mg Tablet PO 40 mg DAILY ARIEL Administration Thiamine Mononitra te 100 mg 06/27/21 18:05 06/28/21 08:58 Thiamine 100 Mg Tablet PO Not Given DAILY ARIEL PFSH Anesthesia PFSH: Medical History (Updated 06/27/21 @ 15:39 by Andrew Quevedo DO) Diabetes mellitus GERD (gastroesophageal reflux disease) Gout Family History (Updated 06/27/21 @ 10:58 by Darell De Anda MD) Other CAD (coronary artery disease) Cancer Diabetes Social History (Updated 06/27/21 @ 10:58 by Darell De Anda MD) Smoking and tobacco status: never smoked Alcohol intake: current Supplemental PFSH Information: Denies any significant surgeries. Reports he read drinks around 3-4 drinks a day. Family history was significant for colon cancer in a sibling. Parent with lung cancer. Data Anesthesia CBC & Chem 7: 06/28/21 06:57 06/28/21 06:57 Other Labs: Laboratory Results - last 48 hr 06/27/21 06/27/21 06/27/21 05:06 08:56 08:56 WBC 5.0 RBC 3.80 L Hgb 13.6 Hct 38.5 L MCV 101.3 H MCH 35.8 H MCHC 35.3 RDW 11.9 L Plt Count 104 L MPV 11.3 H Neut % (Auto) 67.9 Lymph % (Auto) 15.1 [place] % (Auto) 12.0 Eos % (Auto) 4.4 Baso % (Auto) 0.2 Neut # (Auto) 3.38 Lymph # (Auto) 0.8 [place] # (Auto) 0.6 Eos # (Auto) 0.2 Baso # (Auto) 0.0 Nucleated RBC % (auto) 0 Nucleated RBCs # 0.0 PT INR APTT Sodium 128 L Potassium 4.2 Chloride 95 L Carbon Dioxide 19 L Anion Gap 18.2 BUN 10 Creatinine 0.7 GFR Calculation 118.9 Glucose 159 H POC Glucose Estimat Average Glucose 128 Hemoglobin A1c 6.1 H Calculated Osmolality 268 L Calcium 8.4 L Total Bilirubin 0.8 AST 39 ALT 30 Alkaline Phosphatase 129 Total Protein 6.9 Albumin 3.4 L Globulin 3.5 Tumor Marker AFP Carcinoembryonic Ag Prostate Specific Ag Vitamin B12 Folate TSH Random Cortisol Urine Color Urine Appearance Urine pH Ur Specific [place] Urine Protein Urine Glucose (UA) Urine Ketones Urine Blood Urine Nitrate Urine Bilirubin Urine Urobilinogen Ur Leukocyte Esterase Urine RBC Urine WBC Ur Squamous Epith Cells Amorphous Sediment Urine Bacteria 06/27/21 06/27/21 06/27/21 08:56 08:56 08:56 WBC RBC Hgb Hct MCV MCH MCHC RDW Plt Count MPV Neut % (Auto) Lymph % (Auto) [place] % (Auto) Eos % (Auto) Baso % (Auto) Neut # (Auto) Lymph # (Auto) [place] # (Auto) Eos # (Auto) Baso # (Auto) Nucleated RBC % (auto) Nucleated RBCs # PT 15.10 H INR 1.16 APTT 33.0 Sodium Potassium Chloride Carbon Dioxide Anion Gap BUN Creatinine GFR Calculation Glucose POC Glucose Estimat Average Glucose Hemoglobin A1c Calculated Osmolality Calcium Total Bilirubin AST ALT Alkaline Phosphatase Total Protein 6.8 Albumin Globulin Tumor Marker AFP Carcinoembryonic Ag Prostate Specific Ag 0.566 Vitamin B12 Folate TSH Random Cortisol Urine Color Urine Appearance Urine pH Ur Specific [place] Urine Protein Urine Glucose (UA) Urine Ketones Urine Blood Urine Nitrate Urine Bilirubin Urine Urobilinogen Ur Leukocyte Esterase Urine RBC Urine WBC Ur Squamous Epith Cells Amorphous Sediment Urine Bacteria 06/27/21 06/27/21 06/27/21 08:56 11:49 11:49 WBC RBC Hgb Hct MCV MCH MCHC RDW Plt Count MPV Neut % (Auto) Lymph % (Auto) [place] % (Auto) Eos % (Auto) Baso % (Auto) Neut # (Auto) Lymph # (Auto) [place] # (Auto) Eos # (Auto) Baso # (Auto) Nucleated RBC % (auto) Nucleated RBCs # PT INR APTT Sodium Potassium Chloride Carbon Dioxide Anion Gap BUN Creatinine GFR Calculation Glucose POC Glucose Estimat Average Glucose Hemoglobin A1c Calculated Osmolality Calcium Total Bilirubin AST ALT Alkaline Phosphatase Total Protein Albumin Globulin Tumor Marker AFP 2204.0 H Carcinoembryonic Ag 2.1 Prostate Specific Ag Vitamin B12 1949 H Folate 10.5 TSH 1.70 Random Cortisol 4.34 Urine Color Urine Appearance Urine pH Ur Specific [place] Urine Protein Urine Glucose (UA) Urine Ketones Urine Blood Urine Nitrate Urine Bilirubin Urine Urobilinogen Ur Leukocyte Esterase Urine RBC Urine WBC Ur Squamous Epith Cells Amorphous Sediment Urine Bacteria 06/27/21 06/27/21 06/27/21 16:10 18:41 20:51 WBC RBC Hgb Hct MCV MCH MCHC RDW Plt Count MPV Neut % (Auto) Lymph % (Auto) [place] % (Auto) Eos % (Auto) Baso % (Auto) Neut # (Auto) Lymph # (Auto) [place] # (Auto) Eos # (Auto) Baso # (Auto) Nucleated RBC % (auto) Nucleated RBCs # PT INR APTT Sodium Potassium Chloride Carbon Dioxide Anion Gap BUN Creatinine GFR Calculation Glucose POC Glucose 335 H 237 H Estimat Average Glucose Hemoglobin A1c Calculated Osmolality Calcium Total Bilirubin AST ALT Alkaline Phosphatase Total Protein Albumin Globulin Tumor Marker AFP Carcinoembryonic Ag Prostate Specific Ag Vitamin B12 Folate TSH Random Cortisol Urine Color Yellow Urine Appearance Clear Urine pH 7 Ur Specific [place] 1.010 Urine Protein Neg Urine Glucose (UA) 1+ H Urine Ketones Negative Urine Blood Neg Urine Nitrate Negative Urine Bilirubin Neg Urine Urobilinogen 1 H Ur Leukocyte Esterase Negative Urine RBC None Urine WBC None Ur Squamous Epith Cells None Amorphous Sediment Not Reportable Urine Bacteria Trace 06/28/21 06/28/21 06/28/21 06:20 06:57 06:57 WBC 9.6 RBC 4.03 L Hgb 14.5 Hct 40.5 L MCV 100.5 H MCH 36.0 H MCHC 35.8 RDW 11.8 L Plt Count 129 L MPV 11.9 H Neut % (Auto) 88.9 Lymph % (Auto) 5.9 [place] % (Auto) 4.5 Eos % (Auto) 0.0 Baso % (Auto) 0.1 Neut # (Auto) 8.50 H Lymph # (Auto) 0.6 L [place] # (Auto) 0.4 Eos # (Auto) 0.0 Baso # (Auto) 0.0 Nucleated RBC % (auto) 0 Nucleated RBCs # 0.0 PT INR APTT Sodium 133 L Potassium 5.1 Chloride 99 Carbon Dioxide 20 L Anion Gap 19.1 H BUN 16 Creatinine 0.6 L GFR Calculation 142.0 H Glucose 237 H POC Glucose 248 H Estimat Average Glucose Hemoglobin A1c Calculated Osmolality 285 Calcium 8.9 Total Bilirubin AST ALT Alkaline Phosphatase Total Protein Albumin Globulin Tumor Marker AFP Carcinoembryonic Ag Prostate Specific Ag Vitamin B12 Folate TSH Random Cortisol Urine Color Urine Appearance Urine pH Ur Specific [place] Urine Protein Urine Glucose (UA) Urine Ketones Urine Blood Urine Nitrate Urine Bilirubin Urine Urobilinogen Ur Leukocyte Esterase Urine RBC Urine WBC Ur Squamous Epith Cells Amorphous Sediment Urine Bacteria Cardiac Studies: No Data to Display
--- NOTE | 2021-06-28 12:35 | PM.PN ---
Subjective Subjective: Interval history: No new problems other than anxiety. Awaiting surgery. Medications: Reviewed: Yes Vitals/I&O/Wt Last Vital Signs Temp 97.2 F L 06/28/21 11:35 Pulse 98 06/28/21 11:35 Resp 18 06/28/21 11:35 BP 136/87 06/28/21 11:35 Pulse Ox 98 06/28/21 11:35 06/27/21 06/28/21 06/28/21 22:59 06:59 14:59 Intake Total 500 / 500 240 / 240 Output Total 680 / 680 Balance -180 / -180 240 / 240 Weight last 48 hrs Weight 113.398 kg Weight 113.398 kg Physical Exam Narrative: EXAM NARRATIVE: General exam no distress, ambulating Neck, patient currently in c-collar Cardiovascular regular rate and rhythm, no murmur Lungs clear no wheezing or crackles Abdomen soft nontender positive bowel sounds. Obese. No obvious organomegaly. Extremities no cyanosis clubbing or edema. Data : 06/28/21 06:57 06/28/21 06:57 A&P Assessment and plan (1) Cervical spine fracture: This appears to be a pathologic severe compression fracture of C4. C-collar has been placed Orthopedic spine surgery consultation appreciated Surgery today Etiology of likely malignancy under investigation. Biopsy can be performed of bone affected during time of surgery. Status: Acute (2) Right arm weakness: This may be more mechanical, and impingement in nature than from his neck lesion. Significant tumor is noted right scapular lesion that could cause impingement upon the rotator cuff. He has good distal strength Status: Acute (3) Multiple lesions of metastatic malignancy: Multiple lesions are noted Significant lesion right parietal area with extension into the dura, and parietal lobe with a small amount of surrounding edema Dexamethasone 10 mg IV given in the emergency department. We will continue dexamethasone every 6 hours while in the hospital, with plan to discharge on 4 mg twice daily ultimately. Differential diagnosis is large, including multiple myeloma, thyroid cancer, prostate cancer, melanoma, renal cell cancer CT abdomen and pelvis will also need to be obtained. Consider obtaining this prior to discharge. Currently he is in surgery. PSA normal. Alpha-fetoprotein elevated. CEA normal. Status: Acute (4) Hyponatremia: Hyponatremia improved May be related to malignancy TSH and cortisol level normal At this point no saline, fluid restriction, etc. is warranted. Status: Acute (5) Thrombocytopenia: May be secondary to malignancy. Platelet count 104 currently. Continue to monitor. Status: Acute (6) Macrocytosis: B12 and folate level normal Initiate thiamine May be related to his alcohol intake Status: Acute (7) Anxiety: Patient reports significant anxiety. Add Ativan as needed Status: Acute (8) Diabetes mellitus: Sliding scale insulin Consistent carb diet Status: Acute Additional A&P Information InsertHistory of alcohol use. Doubt he will have withdrawal but consider CIWA protocol if this occurs Multiple other medical problems as outlined in past medical history Full code SCDs for DVT prophylaxis currently. Following surgery could go on Lovenox. Attestations Medical Necessity Statement*: Needs continued hospitalization for definitive treatment of his cervical fracture Coding Level of Care Code Acute Sales Management Trainee for Chg Fwd Diagnoses Cervical spine fracture S12.9XXA Right arm weakness R29.898 Multiple lesions of metastatic malignancy C79.9 Hyponatremia E87.1 Thrombocytopenia D69.6 Macrocytosis D75.89 Anxiety F41.9 Diabetes mellitus E11.9
--- NOTE | 2021-06-28 13:50 | SUR.OPER ---
1348- family updated of surgical status
--- NOTE | 2021-06-28 14:47 | SUR.OPER ---
1440- family updated of surgical status
--- NOTE | 2021-06-28 15:39 | P.OP_ITS ---
Operative Report Date of procedure: June 28, 2021 Pre-op Diagnosis: C4 tumor with instability Post-op diagnosis: same Procedure Done: 1. Anterior diskectomy C3/4 2. Anterior discectomy C4/5 3. corpectomy C4 greater than 50% 4. Insertion of Corpectomy cage C3-C5 5. Instrumentation with anterior plate from C3-C5 6. Use of allograft 7. Biopsy of C4 tumor Surgeon: Andrew Quevedo Tin Tie Machine Operator Automatic: Cyrus Barnes Tin Tie Machine Operator Automatic: The surgical consultant, Cyrus Barnes, [place] was needed for his expertise under the microscope. He was important and necessary throughout the procedure to complete in a safe and timely manner. He assisted with patient positioning prepping and draping tissue retraction suctioning of the operative field protection of the dural sac and tissue closure Anesthesia: General Estimated blood loss (mL): 1,050 Condition: stable Disposition: PACU Procedure: 1. Anterior diskectomy C3/4 2. Anterior discectomy C4/5 3. corpectomy C4 greater than 50% 4. Insertion of Corpectomy cage C3-C5 5. Instrumentation with anterior plate from C3-C5 6. Use of allograft 7. Biopsy of C4 tumor The patient was taken to the operating room, where he underwent general endotracheal anesthesia without complications. He was then positioned supine on the operating table, and all areas of impingement were well padded. The arms were carefully padded and tucked at his sides. A roll was placed between the shoulder blades.. An x-ray was done to determine the appropriate level for the skin incision. The entire neck was then sterilely prepped and draped in the usual fashion. Neuromonitoring was attached prior to prepping. A transverse skin incision was made and carried down to the platysma muscle. This was then split in line with its fibers. Blunt dissection was carried down medial to the carotid sheath and lateral to the trachea and esophagus until the anterior cervical spine was visualized. A needle was placed into a disc and an x-ray was done to determine its location. The longus colli muscles were then elevated bilaterally with the electrocautery unit. Self-retaining retractors were placed deep to the longus colli muscle. Attention was brought to the C3 to C5 level that was confirmed on x-ray. A caspar pin was placed into the C3 vertebrae and the C5 vertebrae. The disk spaces was then distracted. The microscope was then brought in. A radical anterior discectomies were performed at C3/4 and C4/5. This included complete removal of the anterior annulus, nucleus, and posterior annulus. The posterior longitudinal ligament was removed as were the posterior osteophytes. Foraminoto mies were then accomplished bilaterally. This was done using a high speed [place], kerrison rongeurs and curretes Once all of this was accomplished, the curved currette was used to check for any residual compression. The central canal was wide open as were the foramen. A high-speed bur was used to remove the cartilaginous endplates C3 inferiorly and superiorly at C5 Bleeding cancellous bone was exposed. The C6 corpectomy was then performed. High speed bur was used to take out the lateral aspect of the C4 vertebrae. The rongeur was used to remove bone and tumor tumor was highly vascular was bleeding the entire time. The disc bases were identified and curved curette was used to identify the posterior aspect of the vertebrae and then a 2 o Kerrison was used to remove the vertebrae down to the posterior longitudinal ligament. The posterior longitudinal ligament was exposed from the superior aspect of C5 up to the inferior aspect of C3. This was then removed using the Kerrison rongeur dura was exposed from superior aspect of C5 up to the inferior aspect of C5. The space was then irrigated a trial was measured the appropriate size cage was then inserted the bone graft from the cage was allograft osteoamp as well as some of the bone from the corpectomy. The [place] pins were removed. Bone wax was used to prevent any bleeding from occurring at the pin sites. The appropriate size anterior cervical locking plate was chosen and bent into gentle lordosis. Two screws were then placed into each of the vertebral bodies at C3 and C5. There was excellent purchase. A final x-ray was done confirming good position of the hardware and Cages. The locking screws were then applied, also with excellent purchase. Following a final copious irrigation, there was good hemostasis and no dural le aks. The carotid pulse was strong. The wounds were then closed in layers using 2-0 Vicryl suture for the platysma muscle, 2-0 Vicryl suture for the subcutaneous tissue, and 4-0 monocryl suture in a subcuticular skin closure. Glue was placed followed by application of a sterile dressing. The drain was hooked to bulb suction. A soft collar was applied. The patient was then carefully returned to the supine position on his hospital bed where he was reversed and extubated and taken to the recovery room having tolerated the procedure well.
[2021-06-28 16:13] LABS: ALBUMIN 3.2 g/dL (3.8-4.8); ALPHA 1 GLOBULIN 0.3 g/dL (0.2-0.3); ALPHA 2 GLOBULIN 0.9 g/dL (0.5-0.9); BETA 1 GLOBULIN 0.4 g/dL (0.4-0.6); BETA 2 GLOBULIN 0.5 g/dL (0.2-0.5); GAMMA GLOBULIN 1.5 g/dL (0.8-1.7)
--- NOTE | 2021-06-28 16:21 | ANE.PACU2 ---
Inpatient post-anesthesia follow up: Airway intact: Yes Vital signs: Temperature 97.2 F Pulse Rate 86 Respiratory Rate 23 Blood Pressure 128/77 Pulse Oximetry 91 Oxygen Delivery Me thod Nasal Cannula Oxygen Flow Rate 2 Fraction of Inspir ed Oxygen Hydration adequate: Yes Nausea and vomiting: No Pain level: 2 Mental status: Baseline
[2021-06-28] MEDS: ondansetron 2 mg/ML SDV 2 mL 4 MG IVP (16:45)
[2021-06-28] MEDS: HYDROcodone-acetaminophen 5-325 mg Tablet 1 TAB PO (18:22)
[2021-06-28] MEDS: lactated ringers 1,000 ML 90 ML IV (18:22)
[2021-06-28] MEDS: ketorolac 30 mg/mL INJ IVP (20:45)
[2021-06-28 22:00] LABS: Glucose Point of Care 365 mg/dL (70-110)
[2021-06-28] MEDS: insulin lispro 100 unit/1 mL SUBCUT (23:51)
[2021-06-29] VITALS: BP 129/79; PULSE 98; RESP 18; TEMP 36.8; O2SAT 93
[2021-06-29] MEDS: ketorolac 30 mg/mL INJ IVP ×2 (03:59→10:07)
[2021-06-29] MEDS: LORazepam 2 mg/mL INJ 1 mL 1 MG IVP (05:12)
[2021-06-29] MEDS: dexamethasone 4 mg/mL INJ IVP ×2 (05:14→13:51)
[2021-06-29 06:04] LABS: Basophils % 0.1 %; Hematocrit 36.3 % (42.0-52.0); Hemoglobin 12.7 g/dL (11.7-16.6); Lymphocytes # 0.6 10^3/uL (0.8-4.8); Lymphocytes % 4.2 %; Mean Corpuscular Hemoglobin 35.4 pg (28.0-34.0); Mean Corpuscular Volume 101.1 fl (80-94); Mean Platelet Volume 11.4 fL (7.4-10.4); Neutrophils % 86.9 %; Nucleated Red Blood Cells % 0 %; Platelet Count 158 10^3/cmm (130-400); Red Blood Count 3.59 10^6/uL (4.1-5.3); Red Cell Distribution Width 12.1 % (12.1-15.1); White Blood Count 14.6 10^3/uL (4.0-10.0)
[2021-06-29 06:20] LABS: Anion Gap 15.7 (5-19); Blood Urea Nitrogen 21 mg/dL (6-20); Calcium 8.6 mg/dL (8.5-10.5); Carbon Dioxide 20 mmol/L (22-29); Chloride 101 mmol/L (98-107); Glomerular Filtration Rate 101.9 mL/min (90-130); Glucose 213 mg/dL (65-115); Osmolality Calculated 283 mOsm/kg (285-295); Potassium 4.7 mmol/L (3.5-5.1); Sodium 132 mmol/L (136-145)
[2021-06-29 06:48] LABS: Glucose Point of Care 187 mg/dL (70-110)
--- NOTE | 2021-06-29 06:51 | P.PN_ITS ---
Subjective Subjective: Interval history: POD 1 Pt sitting up in the chair. Patient very anxious this morning. Family is present. He reports improvement of his right shoulder. Moderate swelling discomfort. Vitals/I&O/Wt Last Vital Signs Temp 98.3 F 06/29/21 00:00 Pulse 98 06/29/21 00:00 Resp 18 06/29/21 00:00 BP 129/79 06/29/21 00:00 Pulse Ox 93 06/29/21 00:00 06/28/21 06/28/21 06/29/21 14:59 22:59 06:59 Intake Total 300 / 300 1560 / 1860 667 / 2527 Output Total 330 / 330 25 / 355 Balance 300 / 300 1230 / 1530 642 / 2172 Weight last 48 hrs Weight 250 lb Weight 250 lb Physical Exam Narrative: EXAM NARRATIVE: Patient is alert and oriented x3 with a good general appearance normal normal affect. Moderate tenderness with palpation about the incisional site. Incision appears to be healing nicely without signs of erythema or drainage. Good motor strength throughout both upper extremities. Appears to fire in all motor groups with 5/5 strength. Hands are warm good cap refill in all digits. Normal sensation to light touch. Dressing changed and Hemovac was pulled by patient through he night. Urinary Catheter Management^: Germain Latex: Cath Placed During This Visit: yes, but has since been removed by the nurse Urinary Catheter Date of Insertion: 06/28/21 Urinary Catheter Time of Insertion: 13:10 Date Urinary Catheter Removed: 06/28/21 Time Urinary Catheter Discontinued: 15:21 Data : 06/29/21 05:20 06/29/21 05:20 A&P Assessment and plan (1) Pathologic cervical vertebral fracture: Patient can have the [place] J collar off while he is sitting in the chair but anytime he mobilizes need to have it on for protection. Ice chips or throat lozenges to help with swallowing. 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
--- NOTE | 2021-06-29 07:33 | CT_ITS ---
WS: [id number] CT ABDOMEN AND PELVIS WITH CONTRAST HISTORY: elevated liver tumor markers TECHNIQUE: Imaging performed of the abdomen and pelvis with IV contrast. Single phase imaging of the abdomen. Coronal and sagittal reformats are submitted. All CT scans at [facility] use at [address] one of these dose optimization techniques: automated exposure control; mA and/or kV adjustment per patient size (includes targeted exams where dose is matched to clinical indication); or iterative re construction. IV CONTRAST: Omnipaque 300; 95 mL IV. Oral contrast: No DLP: 1566.69 mGy.cm COMPARISON: No prior similar studies. Chest CT 06/27/2021. Lower thorax: Minimal subsegmental atelectasis at the RIGHT lung base. No nodule. Heart is normal siz e. Oral hiatal hernia. Liver/biliary system: There is a very subtle area of low attenuation and infiltration in the LEFT lob e of the liver measuring approximately 3.8 x 2.3 cm. This area of low attenuation is just lateral to the falciform ligament. Surface of the liver is slightly nodular and irregular suggesting cirrhosis. No bile duct dilatation. Portal vein is patent. Gallbladder: Mildly contracted gallbladder. Pancreas: Normal size pancreas and pancreatic duct. No adjacent inflammation. Spleen: Normal size spleen with granulomata. Adrenal glands: Normal. Right kidney: Normal. Left kidney: No hydronephrosis. There is a low-attenuation nodule measuring 10 mm in the anterior mid kidney. This may be a mildly prominent calyx. No associated soft tissue mass is appreciated. Aorta: Mild atherosclerosis with no aneurysm. Lymphadenopathy: None. Free fluid: None. GI tract: No GI tract obstruction. The appendix is not identified. No evidence for appendicitis. Ther e is diffuse diverticula throughout the sigmoid colon. Abdominal wall: Fat-containing umbilical hernia. Pelvis: No free fluid or adenopathy. Urinary bladder is minimally distended. Inguinal canals are rodrigues nt and contains fat only. No enlargement of the prostate gland. Bones: Multiple metastatic lytic bone lesions are identified. The largest and most destructive is in the superior RIGHT ilium measuring 5.3 x 5.2 cm with a large soft tissue component and destruction of the bone. Additional lytic areas in the inferior pubic rami bilaterally and bilaterally in the iliac bones. The lesions within the spine were described on the dedicated lumbar CT. Also noted is a destr uctive soft tissue mass involving the RIGHT scapula that was previously described. CT/CT abdomen pelvis w con* [id number] IMPRESSION: 1. Very subtle low-attenuation/infiltrating lesion in the LEFT lobe of the alex er measuring 3.8 x 2.4 cm. May be an early hepatocellular carcinoma. This may b e more extensive than evident on the CT examination as it is difficult to visua lize. 2. Extensive metastatic lytic bone disease. Lytic lesions in the spine and pel vis. The largest involves the superior LEFT iliac wing with osseous destruction . 3. No ascites or adenopathy. 4. Coarse echotexture throughout the liver with changes suspicious for cirrhos is.
[2021-06-29 08:00] VITALS: BP 145/93; PULSE 88; RESP 20; TEMP 36.4; O2SAT 94
--- NOTE | 2021-06-29 09:00 | CT_ITS ---
WS: [id number] CT THORACIC SPINE HISTORY: tumor TECHNIQUE: Contiguous 2.5 mm axial images are reviewed to thoracic spine. Images are reformatted in s agittal and coronal planes. All CT scans at [facility] use at least one of these dose optimiz ation techniques: automated exposure control; mA and/or kV adjustment per patient size (includes targ eted exams where dose is matched to clinical indication); or iterative reconstruction. DLP: 2436.44 mGy.cm COMPARISON: None available. Posterior thoracic alignment is normal. T2: Lytic lesion LEFT transverse process, 10 mm. T4: LEFT lateral vertebral body lytic lesion measures 18 x 10 mm with thinning and complete destructi on of the LEFT lateral vertebral body. T6: 6 mm lesion anterior RIGHT vertebral body. T10: Large destructive lytic lesion involving greater than 50% of the vertebral body destruction of t he superior and posterior cortex. There is tumor extension compressing the thoracic cord at T10. Tumo r extending beyond the vertebral body extends over length of at least 15 cm with tumor extending upon the thecal sac by 4 mm. T11: Metastatic lesion tip of the spinous process. T12: Metastatic lesion tip of the spinous process. There are additional very tiny lytic changes throughout the visualized vertebral bodies and ribs. The se are indeterminate but could be very early metastatic lesions. No large disc herniations or protrus ions. Benign granuloma RIGHT upper lobe. Chest CT was performed as a dedicated examination on 06/27/2021. On the cad intern survey the pleural-based soft tissue mass in the LEFT thorax is identified again. CT/CT thoracic spin wo con* [id number] IMPRESSION: 1. Lytic metastatic bone disease as described above. 2. Largest destructive metastatic lesion involves T10. Tumor extension through the cortex of the vertebral body with mass effect and mild compression upon th e thecal sac and cord.
--- NOTE | 2021-06-29 09:00 | CT_ITS ---
WS: [id number] CT LUMBAR SPINE, noncontrast. HISTORY: Metastatic bone disease. TECHNIQUE: Contiguous 2.5 mm axial imaging are performed. Sagittal and coronal reformats are submitte d and reviewed. All CT scans at [facility] use at least one of these dose optimization techni ques: automated exposure control; mA and/or kV adjustment per patient size (includes targeted exams w here dose is matched to clinical indication); or iterative reconstruction. IV contrast: None DLP: 1899.23 mGy.cm COMPARISON: None available. Normal posterior lumbar alignment. Endplate vertebral osteophytes. No compression fractures or pathol ogical fracture in the lumbar spine. L3: Lytic area far LEFT lateral measures millimeters. No cortical destruction. L4: 7 mm lytic area superior anterior LEFT lateral vertebral body. Possible tiny lytic area LEFT dumont sverse process. Schmorl's node inferior endplate of L4. Lytic lesion in the LEFT facet. LEFT ilium: Lytic lesion measuring 26 x 15 mm. L1-2: Mild disc bulging. No stenosis. L2-3: Mild annular disc bulging. No high-grade stenosis. L3-4: Mild osteophytic ridging and annular disc bulging. Mild effacement of ventral CSF and foraminal narrowing. L4-5: Moderate annular disc bulging with effacement of the ventral CSF. Mild ligamentum flavum hypert rophy. Mild central and foraminal stenosis. L5-S1: Mild annular disc bulging. Mild central and foraminal stenosis. There is a central disc protru hemalatha. Paravertebral soft tissues are negative. Small amount of air in the SI joints. Mild atherosclerosis a shiv. No cord compression. CT/CT lumbar spine wo con* [id number] IMPRESSION: 1. No high-grade central or foraminal stenosis. 2. Mild central and foraminal stenosis L4-5 and L5-S1 due to disc and facet di sease. 3. Lytic bone lesions consistent with metastatic disease. Metastatic changes i dentified within the L3, L4 and the LEFT ilium.
[2021-06-29] MEDS: pantoprazole DR 40 mg Tablet PO (10:03)
[2021-06-29] MEDS: LORazepam 1 mg Tablet PO (10:07)
[2021-06-29] MEDS: thiamine 100 mg Tablet PO (10:07)
[2021-06-29] MEDS: iohexol 300 mg/mL 100 mL Btl IV (11:01)
[2021-06-29 12:00] VITALS: BP 148/89; PULSE 97; RESP 18; TEMP 36.8; O2SAT 91
--- NOTE | 2021-06-29 12:43 | PM.PN ---
Subjective Subjective: Interval history: Lots of difficulty sleeping last night. Okay with proceeding to start something long-term for anxiety. Some difficulty swallowing, following surgery but doing better. Pain still an issue. Medications: Reviewed: Yes Vitals/I&O/Wt Last Vital Signs Temp 97.6 F 06/29/21 08:00 Pulse 88 06/29/21 08:00 Resp 20 H 06/29/21 08:00 BP 145/93 06/29/21 08:00 Pulse Ox 94 06/29/21 08:00 06/28/21 06/29/21 06/29/21 22:59 06:59 14:59 Intake Total 1560 / 1860 667 / 2527 Output Total 330 / 330 25 / 355 0 / 0 Balance 1230 / 1530 642 / 2172 0 / 0 Weight last 48 hrs Weight 113.398 kg Physical Exam Narrative: EXAM NARRATIVE: General exam no distress, conversant Neck, patient currently in c-collar Cardiovascular regular rate and rhythm, no murmur Lungs clear no wheezing or crackles Abdomen soft nontender positive bowel sounds. Obese. No obvious organomegaly. Extremities no cyanosis clubbing or edema. Urinary Catheter Management^: Germain Latex: Cath Placed During This Visit: yes, but has since been removed by the nurse Urinary Catheter Date of Insertion: 06/28/21 Urinary Catheter Time of Insertion: 13:10 Date Urinary Catheter Removed: 06/28/21 Time Urinary Catheter Discontinued: 15:21 Data : 06/29/21 05:20 06/29/21 05:20 A&P Assessment and plan (1) Cervical spine fracture: This appears to be a pathologic severe compression fracture of C4. C-collar in place Orthopedic spine surgery consultation appreciated Postoperative day #1 status post stabilization of cervical spine fracture Biopsy was performed of this pathologic fracture. Pathology pending Abnormalities present in the thoracic and lumbar spine, with most concerning abnormality T10. Orthopedic spine surgery will discuss with patient if operative intervention is warranted, and when this could occur. Status: Acute (2) Right arm weakness: This may be more mechanical, and impingement in nature than from his neck lesion. Significant tumor is noted right scapular lesion that could cause impingement upon the rotator cuff. He has good distal strength. This is somewhat improved Status: Acute (3) Multiple lesions of metastatic malignancy: Multiple lesions are noted Significant lesion right parietal area with extension into the dura, and parietal lobe with a small amount of surrounding edema Dexamethasone 10 mg IV given in the emergency department. We will continue dexamethasone every 6 hours while in the hospital, with plan to discharge on 4 mg twice daily ultimately. Differential diagnosis is large, including multiple myeloma, thyroid cancer, prostate cancer, melanoma, renal cell cancer, liver malignancy CT abdomen and pelvis done today with contrast does demonstrate a liver lesion. PSA normal. Alpha-fetoprotein elevated. CEA normal. Secondary to pain associated with tumor we will discontinue his hydrocodone, initiate oxycodone IR 15 mg every 4 hours as needed. Start laxative as well. Status: Acute (4) Hyponatremia: Hyponatremia improved May be related to malignancy TSH and cortisol level normal At this point no saline, fluid restriction, etc. is warranted. Status: Acute (5) Thrombocytopenia: May be secondary to malignancy. Improved Status: Acute (6) Macrocytosis: B12 and folate level normal Initiate thiamine May be related to his alcohol intake Status: Acute (7) Anxiety: Patient reports significant anxiety. Ativan as needed Start Cymbalta As needed trazodone at night for insomnia Status: Acute (8) Diabetes mellitus: Sliding scale insulin Consistent carb diet Status: Acute Additional A&P Information InsertHistory of alcohol use. Doubt he will have withdrawal but consider CIWA protocol if this occurs Multiple other medical problems as outlined in past medical history Full code SCDs for DVT prophylaxis currently. Initiate Lovenox if he is not discharging today. Attestations Medical Necessity Statement*: May need further hospitalization secondary to thoracic spine lesion. Orthopedics to review today. 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
[2021-06-29 13:48] VITALS: PULSE 97; RESP 18; O2SAT 97
[2021-06-29] MEDS: duloxetine 30 mg Capsule PO (13:50)
[2021-06-29] MEDS: oxyCODONE 5 mg IR Tab/Cap 15 MG PO (13:51)
--- NOTE | 2021-06-29 14:46 | P.PN_ITS ---
Subjective Subjective: Interval history: Unstable. At this point fixation of this. At this point patient just had surgery yesterday for his cervical spine. Plan is to do a T7-L1 posterior spine fusion for stability of his T10 tumor. Patient would like to go home. At this point I agreed to let him go home for mental stability. We will plan on doing fixation on Friday pending insurance discussed this with the patient and his family. Vitals/I&O/Wt Last Vital Signs Temp 98.2 F 06/29/21 12:00 Pulse 97 06/29/21 13:48 Resp 18 06/29/21 13:48 BP 148/89 06/29/21 12:00 Pulse Ox 97 06/29/21 13:48 06/28/21 06/29/21 06/29/21 22:59 06:59 14:59 Intake Total 1560 / 1860 667 / 2527 Output Total 330 / 330 25 / 355 0 / 0 Balance 1230 / 1530 642 / 2172 0 / 0 Weight last 48 hrs Weight 250 lb Physical Exam Urinary Catheter Management^: Germain Latex: Cath Placed During This Visit: yes, but has since been removed by the nurse Urinary Catheter Date of Insertion: 06/28/21 Urinary Catheter Time of Insertion: 13:10 Date Urinary Catheter Removed: 06/28/21 Time Urinary Catheter Discontinued: 15:21 Data : 06/29/21 05:20 06/29/21 05:20 Attestations Medical Necessity Statement*: per primary service 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
--- NOTE | 2021-06-29 15:18 | PC.CHAP ---
Pastoral Care Encounter/Spiritual Assessment Type of Contact [] Declined table games supervisor visit [] Patient/Family/Request visit [] Outpatient visit [] Follow-up visit [] Physician referral [] Code/Alert [xx] Routine visit [] Staff referral [] Actively dying [] Patient sleeping [] Family support [] [] Out of room [] Palliative care [] [] Receiving care in room [] Pre-surgical visit [] Trauma [] Long length of stay [] ICU visit [] Other: Relational/Emotional Strength [xx] Patient feels connected with others/family/visitors/staff [] Distress [] Loneliness/isolation [] Abandonment Spirituality of Patient [xx] Person of Ana [] Attends Hinduism of their Ana [xx] Believes in Prayer [] Reads Bible or Methodist materials [] There are Spiritual issues to be addressed [facility] Interventions [xx] Prayer [xx] Active listening [] Non-anxious presence [] Spiritual/emotional support [] Crisis/trauma care [] Spiritual counseling [] Bereavement support [] Provided bereavement packet [] Provided Bible/devotional materials [] Provided toy/stuffed animal, coloring book to patient or family member [] Provided Communion [] Anointing/[place] [] Salvation [xx] Completed spiritual assessment [] Other: Impact on Illness or Injury [] Angry [] Fearful [xx] Anxious [] Often cries [] Exhaustion [] Unable to work [] Unable to attend christian [] Unable to walk/stand [] Unable to read [] Unable to drive [] Unable to eat/drink [] Unable to sleep [] Unable to be with family [] Patient intubated [] Other: Summary Patient was in neck and back brace sitting in recliner. He seemed to be doing quite well. Patient's and daughter were present and very teary-eyed. They were obviously distraught about something but were not willing to talk. They all asked for prayer for patient's healing and for themselves. Avp prayed accordingly for physical and emotional healing for all. None of them wanted any further communication. Time spent with patient 3 minutes
--- NOTE | 2021-06-29 15:18 | PM.DCS ---
Discharge Providers Date of Admission: 06/27/21 11:37 Date of Discharge: June 29, 2021 Attending Provider at Admission: Darell De Anda MD Attending Provider at Discharge: Darell De Anda MD Primary Care Provider: Jasvir Thomas MD Diagnoses at Discharge Discharge Diagnosis (1) Cervical spine fracture: Status: Acute (2) Right arm weakness: Status: Acute (3) Multiple lesions of metastatic malignancy: Status: Acute (4) Hyponatremia: Status: Acute (5) Thrombocytopenia: Status: Acute (6) Macrocytosis: Status: Acute (7) Anxiety: Status: Acute (8) Diabetes mellitus: Status: Acute Reason for Visit Reason for Visit: neck and head pain Hospital Course Hospital Course Michael is a 50-year-old white male who presented to the hospital with complaints of neck pain. He had recently discovered he had metastatic disease throughout his spine, chest. The fracture in his neck appeared unstable, so orthopedic spine surgery was consulted. He underwent stabilization of this fracture on June 28. 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 He was put on dexamethasone for this as well as his spine although he had no specific neurologic impairment other than perhaps some right upper extremity numbness and weakness from his cervical spine lesion. 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 Alpha-fetoprotein was elevated. Liver lesion was seen on CT abdomen and pelvis. Multiple other tumor markers and testing were done which will be followed up with oncology. Secondary to his significant pain, and anxiety fentanyl patch will be initiated, oxycodone as needed, Cymbalta for chronic pain and anxiety. He was cautioned in regards to lethargy. He will follow-up with hematology oncology as well as his primary care provider. Physical Exam Narrative: EXAM NARRATIVE: See exam done earlier today Urinary Catheter Management^: Germain Latex: Cath Placed During This Visit: yes, but has since been removed by the nurse Urinary Catheter Date of Insertion: 06/28/21 Urinary Catheter Time of Insertion: 13:10 Date Urinary Catheter Removed: 06/28/21 Time Urinary Catheter Discontinued: 15:21 Discharge Data Data Completed and Pending: Completed Studies During Hospitalization Category Date Time Status CT abdomen pelvis w con* [id number] Rout ine Cat Scan 06/29/21 07:[address] chest w con* 7 1260 Stat Cat Scan 06/27/21 08:[address] head wo/w con 50284 Stat Cat Scan 06/27/21 08:[address] lumbar spine w o con* [id number] Routi ne Cat Scan 06/29/21 09:[address] thoracic spin wo con* [id number] Rout ine Cat Scan 06/29/21 09:00 Completed XR cervical spine 3V* [id number] Routine Exams 06/28/21 Completed XR chest 1V nitza ble [id number] Stat Exams 06/27/21 07:58 Completed XR hip LT 2-3V wo /w pel* [id number] Stat Exams 06/27/21 08:17 Completed Pending at discharge Category Date Time Status Complete Blood Co unt w/Auto AM LABS Lab 06/30/21 04:00 Ordered Comprehensive Met abolic Panel AM LA BS Lab 06/30/21 04:00 Ordered Miscellaneous [place] t Routine Lab 06/28/21 15:08 Received Pathology: Surgic al [PTH] Routine Pth 06/28/21 15:08 Received Labs from last 24 hours 06/29/21 06/29/21 06/29/21 06:17 05:20 05:20 WBC 14.6 H RBC 3.59 L Hgb 12.7 Hct 36.3 L MCV 101.1 H MCH 35.4 H MCHC 35.0 RDW 12.1 Plt Count 158 MPV 11.4 H Neut % (Auto) 86.9 Lymph % (Auto) 4.2 [place] % (Auto) 7.0 Eos % (Auto) 0.0 Baso % (Auto) 0.1 Neut # (Auto) 12.70 H Lymph # (Auto) 0.6 L [place] # (Auto) 1.0 H Eos # (Auto) 0.0 Baso # (Auto) 0.0 Nucleated RBC % (a uto) 0 Nucleated RBCs # 0.0 Sodium 132 L Potassium 4.7 Chloride 101 Carbon Dioxide 20 L Anion Gap 15.7 BUN 21 H Creatinine 0.8 GFR Calculation 101.9 Glucose 213 H POC Glucose 187 H Calculated Osmolal ity 283 L Calcium 8.6 Albumin Omgsu-0-Nlivnkodh Hgwqg-2-Gaoiwlqvp Lmfc-2-Mgxmdjgu Uyvn-8-Fyzinqll Gamma Globulins Abnorm Protein Ban d 1 U Abnormal Prot Ba nd 2 U Abnormal Prot Ba nd 3 Pro Electrophoresi s Int Misc Test Referenc e 06/28/21 06/28/21 06/27/21 21:51 15:08 08:56 WBC RBC Hgb Hct MCV MCH MCHC RDW Plt Count MPV Neut % (Auto) Lymph % (Auto) [place] % (Auto) Eos % (Auto) Baso % (Auto) Neut # (Auto) Lymph # (Auto) [place] # (Auto) Eos # (Auto) Baso # (Auto) Nucleated RBC % (a uto) Nucleated RBCs # Sodium Potassium Chloride Carbon Dioxide Anion Gap BUN Creatinine GFR Calculation Glucose POC Glucose 365 H Calculated Osmolal ity Calcium Albumin 3.2 L Xfggg-0-Kqgzwohrq 0.3 Tatfd-0-Thopvgcfn 0.9 Ypfj-9-Kxnkqjwb 0.4 Rvrg-1-Tgrfskin 0.5 Gamma Globulins 1.5 Abnorm Protein Ban d 1 Not Reportable U Abnormal Prot Ba nd 2 Not Reportable U Abnormal Prot Ba nd 3 Not Reportable Pro Electrophoresi s Int See note Misc Test Referenc e Pending Vitals: Last Vital Signs Temp 98.2 F 06/29/21 12:00 Pulse 97 06/29/21 13:48 Resp 18 06/29/21 13:48 BP 148/89 06/29/21 12:00 Pulse Ox 97 06/29/21 13:48 Discharge Plan Discharge Patient Disposition: Home Condition: Stable Prescriptions: New oxycodone 5 mg Tablet 15 mg PO Q4H PRN (Reason: Severe Pain) Qty: 20 RF: 0 Ativan 0.5 mg tablet 0.5 mg PO TID PRN (Reason: anxiety) Qty: 20 RF: 0 fentanyl 25 mcg/hr patch 72 hour 1 patch transdermal Q72H Qty: 5 RF: 0 trazodone 100 mg Tablet 100 mg PO BEDTIME PRN (Reason: Insomnia) Qty: 20 RF: 0 sennosides-docusate sodium [Stool Softener-Laxative] 8.6-50 mg Tablet 1 tab PO BID Qty: 60 RF: 0 duloxetine 30 mg Capsule,Delayed Release(Dr/Ec) 30 mg PO DAILY Qty: 30 RF: 0 dexamethasone 4 mg tablet 4 mg PO Q12H Qty: 60 RF: 0 Continued ibuprofen 200 mg Tablet 800 mg PO Q8H PRN (Reason: Pain) RF: 0 metformin 500 mg tablet extended release 24 hr 500 mg PO DAILY@12 RF: 0 Zegerid OTC 20-1.1 mg-gram Capsule 1 cap PO DAILY RF: 0 Trulicity 1.5 mg/0.5 mL pen injector 1.5 mg SUBCUT Q7D RF: 0 Discontinued hydrocodone-acetaminophen 5-325 mg tablet 1 - 2 tab PO QID PRN (Reason: Pain) RF: 0 Aleve 220 mg Tablet 220 mg PO Q12H PRN (Reason: Pain) RF: 0 Discharge Orders: Discharge Order (Routine); Ordered 06/29/21 Ordered By: Darell De Anda Referrals: Jasvir Thomas MD [Primary Care Provider] - 4-7 days Abdias Chandler MD [Hospitalist] - 7-10 days Discharge Diet: Diabetic Discharge Activity: Limit activity as instructed Patient Instructions: Opioid Safety Activity Restrictions/Additional Instructions: You have A T10 tumor which we discussed. Limit acitivities at this time. Planning on surgery friday or friday. Thank you for choosing [facility] for your care! The following is a list of instructions, from your provider, to follow upon your discharge to ensure you have the optimal recovery from your recent injury or surgery. Anterior Cervical Discectomy and Fusion: What to Expect at Home Your Recovery Follow-up care is a rodríguez part of your treatment and safety. Be sure to make and go to all appointments, and call your doctor if you are having problems. If you do not already have a follow-up appointment made, call office in the next 1-3 days to make follow up appointment for 2 weeks at [phone]. It is also a good idea to know your test results and keep a list of the medicines you take. You can expect your neck to feel stiff or sore after surgery. This should improve in the weeks after surgery. But it may take 4 to 6 months for you to get better completely. You may have trouble sitting or standing in one position for very long and may need pain medicine in the weeks after your surgery. It may take 4 to 6 weeks to get back to your usual activities, but it may depend on what kind of surgery you had. Your throat will feel sore and it may be difficult to swallow for the first 3 days after your surgery. As long as you can get liquids down without difficulty, this should slowly improve, otherwise call our office or seek medical attention if it becomes increasingly difficult to get anything down including liquids. Avoid hot liquids for first 3-5 days. Soothing foods/liquids such as jello, pudding, and luke warm soups are recommended until swallowing improves. Staying elevated will also help, it's advised you keep propped up at while sleeping to help reduce the swelling. You may use an ice pack directly on your incision or around it on the front of your neck, using a cloth to protect your skin; and a heating pad to the back of your neck as needed. Do not use over the counter anti-inflammatory medications (Ibuprofen, Motrin, Aleve, Advil, etc) Taking these meds after having a fusion can delay fusion rates, we recommend you avoid them for the first 3 [address] after your surgery[address] Dr. Quevedo may advise you to work with a physical therapist to strengthen the muscles around your neck and back - this will be discussed at your follow - up appointments. The pain or numbness you were having in your arms before surgery should get better or go away completely. This care sheet gives you a general idea about how long it will take for you to recover. But each person recovers at a different pace. Follow the steps below to get better as quickly as possible. How can you care for yourself at home? Activity ? Rest when you feel tired. Getting enough sleep will help you recover. ? Try to walk each day. Start by walking a little more than you did the day before. Bit by bit, increase the amount you walk. Walking boosts blood flow and helps prevent pneumonia and constipation. Walking may also decrease your muscle soreness after surgery. ? No lifting anything that is more that 5 pounds. This may include heavy grocery bags and milk containers, a heavy briefcase or backpack, cat litter or dog food bags, a child, or a vacuum commercial or institutional cleaner. ? Avoid strenuous activities, such as bicycle riding, jogging, weightlifting, or aerobic exercise, until your doctor says it is okay. ? Do not drive until your follow-up visit after your surgery, or until your doctor says it isokay. ? Avoid taking long car trips for 2 to 4 weeks after surgery. Your neck may become tired and painful from sitting too long in one position. ? You will probably need to take 4 to 6 weeks off from work. It depends on the type of work you do and how you feel. ? You may have sex as soon as you feel able, but avoid positions that put stress on your neck or cause pain. Diet ? You can eat your normal diet. If your stomach is upset, try bland, low-fat foods like plain rice, broiled chicken, toast, and yogurt ? Drink plenty of fluids. If you have kidney, heart, or liver disease and have to limit fluids, talk with your doctor before you increase the amount of fluids you drink. ? You may notice that your bowel movements are not regular right after your surgery. This is common. Try to avoid constipation and straining with bowel movements. You may want to take a fiber supplement every day. If you have not had a bowel movement after a couple of days, ask your doctor about taking a mild laxative. Medicines ? Take pain medicines exactly as directed. 1. If Dr. Quevedo gave you a prescription medicine for pain, take lt as prescribed. 2. Do not take two or more pain medicines at the same time unless the doctor told you to. Many pain medicines have acetaminophen, which is Tylenol. Too much acetaminophen {Tylenol) can be harmful. 3. If you think your pain pill is making you sick to your stomach: 4. Take your pills after meals (unless your doctor has told you not to). 5. Ask your Dr. for a different pain pill. Incisioncare ? Remove your dressing 48hours after your surgery. Ok to shower and get the incision wet. Do not overtly wash your incision. When done, pad dry, leave open to air thereafter. Avoid creams and ointments directly on your incision. ? Your sutures in the incision will dissolve and fall out on their own. ? Keep the area clean and dry. You may cover it with a gauze bandage if it weeps or rubs against clothing; if you choose to do this, change the dressing everyday. Other instructions ? Use a heating pad, hot water bottle, or gentle massage on your back to reduce stiffness. Avoid putting heat on your incision When should you call for help? ? Call 911 anytime you think you may need emergency care. For example, call if: ? You pass out (lose consciousness). ? You have sudden chest pain and shortness of breath, or you cough upblood. ? You cannot swallow. ? You have severe pain in your neck or back. ? Call your Dr. or seek immediate medical care if: ? You have pain that does not get better after you take pain pills. ? You have loose stitches, or your incision comes open. ? You have blood or fluid draining from the incision. ? You have signs of infection, such as: 1. Increased pain, swelling, warmth, or redness. 2. Red streaks leading from the site. 3. Pus draining from the site. 4. Swollen lymph nodes in your neck or armpits. 5. A fever. ? You have severe pain in your arms. ? You have new or increased weakness or numbness in your arms. ? Watch closely for any changes in your health, and be sure to contact your doctor if: ? You do not have a bowel movement after taking a laxative. Do not restart your metformin for 72 hours Keep follow-up Monitor for any lethargy Discharge Attestations Time Spent in Discharge Care*: greater than 30 min Quality Metrics Clinical Quality Measures During this hospital stay, did patient experience: None Coding Level of Care Code Acute [facility] note Diagnoses Cervical spine fracture S12.9XXA Right arm weakness R29.898 Multiple lesions of metastatic malignancy C79.9 Hyponatremia E87.1 Thrombocytopenia D69.6 Macrocytosis D75.89 Anxiety F41.9 Diabetes mellitus E11.9
--- NOTE | 2021-06-29 17:15 | PC.SOCIAL ---
Prior auth completed for Fentanyl Patch 25mcg Dates: 05/30/2021-06/29/2022 and auth number [id number]. Notified Physician and pharmacy. Pharmacy ran claim and it processed.
[2021-06-29 23:04] LABS: Glucose Point of Care 253 mg/dL (70-110)
[2021-07-03 13:56] LABS: Miscellaneous Test See Scanned Lab Rpt
== END 2021-06-29 17:22 | disposition home or self-care (01) | DRG 472 ==
LOC: ER 10:14 → ER IP 11:48 → MEDSURG 15:16
PROVIDERS: Admitting Provider Internal Medicine; Emergency Provider Family Medicine; PCP Family Medicine; Visit Provider Internal Medicine
DX: M84.58XA Pathological fracture in neoplastic disease, other specified site, initial encounter for fracture (principal); C79.51 Secondary malignant neoplasm of bone; C79.31 Secondary malignant neoplasm of brain; C79.32 Secondary malignant neoplasm of cerebral meninges; E87.1 Hypo-osmolality and hyponatremia; G89.3 Neoplasm related pain (acute) (chronic); M48.02 Spinal stenosis, cervical region; D69.59 Other secondary thrombocytopenia; D75.89 Other specified diseases of blood and blood-forming organs; F41.9 Anxiety disorder, unspecified; R53.1 Weakness; M79.601 Pain in right arm; E11.9 Type 2 diabetes mellitus without complications; K21.9 Gastro-esophageal reflux disease without esophagitis; M10.9 Gout, unspecified; F40.240 Claustrophobia; F17.220 Nicotine dependence, chewing tobacco, uncomplicated; E66.01 Morbid (severe) obesity due to excess calories; Z68.35 Body mass index [BMI] 35.0-35.9, adult; Z86.16 Personal history of COVID-19; Z79.84 Long term (current) use of oral hypoglycemic drugs; Z80.0 Family history of malignant neoplasm of digestive organs; Z79.899 Other long term (current) drug therapy; Z72.89 Other problems related to lifestyle
CPT/HCPCS: 36415; 36416; 51702; 70450; 70470; 71045; 71260; 72040; 72128; 72131; 73502; 74177; 76000; 80048; 80053; 81001; 82105; 82378; 82533; 82607; 82746; 82962; 83036; 84153; 84155; 84165; 84443; 85025; 85610; 85730; 88184; 88185; 88307; 88311; 88342; 96365; 96372; 96375; 96376; 97760; 99285; C1713; C9359; J0330; J0690; J1100; J1170; J1815; J1885; J2060; J2270; J2310; J2370; J2405; J2704; J3010; J3490; L0174; P9041; Q9967

== ENCOUNTER 2021-07-02 08:21 | Outpatient (CLI) | payer OTHER, SELFPAY ==
[2021-07-02 10:41] LABS: Basophils % 0.4 %; Hematocrit 34.3 % (42.0-52.0); Hemoglobin 12.3 g/dL (11.7-16.6); Lymphocytes # 0.6 10^3/uL (0.8-4.8); Lymphocytes % 5.6 %; Mean Corpuscular HGB Conc 35.9 g/dL (30.0-36.0); Mean Corpuscular Hemoglobin 35.4 pg (28.0-34.0); Mean Corpuscular Volume 98.8 fl (80-94); Mean Platelet Volume 11.3 fL (7.4-10.4); Monocytes % 8.7 %; Neutrophils # 8.95 10^3/uL (1.8-7.7); Neutrophils % 82.4 %; Nucleated Red Blood Cells % 0 %; Platelet Count 148 10^3/cmm (130-400); Red Blood Count 3.47 10^6/uL (4.1-5.3); Red Cell Distribution Width 11.9 % (12.1-15.1); White Blood Count 10.9 10^3/uL (4.0-10.0)
[2021-07-02 11:08] LABS: Alanine Aminotransferase 78 U/L (0-41); Albumin Level 3.6 g/dL (3.5-5.2); Alkaline Phosphatase 152 IU/L (40-130); Anion Gap 17.7 (5-19); Aspartate Amino Transferase 46 U/L (0-40); Blood Urea Nitrogen 17 mg/dL (6-20); Calcium 9.1 mg/dL (8.5-10.5); Carbon Dioxide 20 mmol/L (22-29); Chloride 99 mmol/L (98-107); Ferritin 596 ng/mL (30-400); Globulin 3.2 g/dL (1.3-4.6); Glomerular Filtration Rate 175.3 mL/min (90-130); Glucose 166 mg/dL (65-115); Iron 42 ug/dL (59-158); Lactate Dehydrogenase 210 U/L (135-225); Osmolality Calculated 279 mOsm/kg (285-295); Percent Saturation 19.4 % (20-50); Potassium 4.7 mmol/L (3.5-5.1); Sodium 132 mmol/L (136-145); Total Iron Binding Capacity 216 mcg/dl; Total Protein 6.8 g/dL (6.6-8.7); Unsaturated Iron Binding 174 ug/dL (112-347)
[2021-07-02 11:29] LABS: Hepatitis A Antibody IgM Non-Reactive (Nonreactive); Hepatitis B Core AB, Total Non-Reactive (Nonreactive); Hepatitis B Surface Antigen Non-Reactive (Nonreactive); Hepatitis C Virus Antibody Non-Reactive (Nonreactive)
[2021-07-02 11:30] LABS: Hepatitis B Surface AB < 3.5 (11.5-1000)
--- NOTE | 2021-07-03 06:51 | ONC CON_ITS ---
Dr. Chandler New Patient Note Patient: Michael Ravi Unit #: [id number]: 1970 Dicatated By: Abdias Chandler M.D.Date of Visit: Jul 02, 2021 Onc MED New Patient/Consult Referring Physician: KALIE LEA Chief Complaint: Bone metastases. History of Present Illness: This is a 50-year-old man with CT evidence of multiple sites of metastatic bone involvement. He had previously been in good general health. In January 2021 he was seen in the emergency room with cough, fever, and weakness, and he was confirmed to have COVID-19 virus infection. He was given the monoclonal antibody infusion. He had prolonged recovery, and he had bad headaches which persisted for least several months. He then began having more gradual onset of neck and shoulder pain. X-rays of the cervical spine on May 09, 2021 showed lucency throughout the C for vertebral body with anterior wedging which were new findings since April 2017. His pain continued to worsen, and he was seen in the emergency room again on June 27, 2021. By that time he had developed a knot on the right side of his head. His head CT showed a large expansile destructive metastatic skull lesion centered in the right parietal bone measuring 4.0 x 4.4 cm and extending over a length of 4.6 cm. The mass was noted to extend into the dura and there was associated dural enhancement and displacement. There was a small amount of cerebral edema surrounding it. Cervical spine CT showed severe pathologic compression fracture at C4 with an L irregular lucent lesion, most likely metastatic. There was at least moderate central canal stenosis posterior to C4 at the site of the fracture. Chest CT showed multiple lytic and expansile lesions including the left lateral fourth rib, inferior right scapula, and mid T10 vertebral body. The T10 vertebral body lesion was noted to encroach upon the thecal sac. Smaller nonexpansile lesions were noted within the T4 vertebral body and the spinous process of T11. There were no pulmonary parenchymal lesions noted. A single subcarinal 9 mm lymph node was noted to be possibly necrotic. He was admitted to the hospital and on June 28, 2021 he underwent anterior discectomy at C3/4 and at C4/5 along with insertion of corpectomy cage C3-C5. Biopsy was obtained from the C4 vertebral body, and the pathology results are pending. In the meantime, his laboratory studies included baseline tumor markers which showed a significantly elevated AFP level at 2204 ng/mL. The CEA was normal at 2.1 ng/mL and the PSA was low at 0.566 ng/mL. Serum protein electrophoresis showed no detectable monoclonal protein band. His CT abdomen/pelvis on June 29, 2021 showed a very subtle low-attenuation infiltrating lesion in the left lobe of the liver measuring 3.8 x 2.4 cm, felt to possibly represent an early hepatocellular carcinoma. There was extensive metastatic lytic bone disease including a destructive lesion in the superior left ilium measuring 5.3 x 5.2 cm. The thoracic spine CT showed a left lateral vertebral body lytic lesion at T4 measuring 18 x 10 mm and a large destructive lesion involving greater than 50% of the T10 vertebral body. Tumor extension was noted to be compressing the thoracic cord at T10. There were additional lytic lesions at T2, T6, T11, and T12. There were additional lytic lesions noted on lumbar spine CT at L3 and L4. Dr. Quevedo is planning additional surgery for the T10 lesion, presumably to be done this week. He has been feeling bad for a long time. His activity has been limited by the pain. He is also not been sleeping well at night because of it, and because of that he has tended to be sleepy during the daytime. Up until the hospitalization he had still been doing light work. His ECOG score is one. His appetite has not been good, and his weight is down some. Since the surgery he has had some soreness in his neck and throat, and he has had some difficulty swallowing. He has not had fever or night sweats, but he has been having some chills. He has had a nonproductive cough for a long time. He does not complain of shortness of breath. Said some chest discomfort recently associated with hiccups. He has not been having nausea, and his acid reflux has been adequately managed with his medication. Recently has had some mild constipation. Bladder function is still okay. He also has been having pain in the left rib cage laterally, in his upper mid back on the left side, and across the lower back. He recently had pretty severe pain in the left hip area when he jumped off of a trailer. He is having only a little bit of headache now. He has had some numbness in the right shoulder/upper arm. He has no other focal neurologic symptoms. He has been having quite a bit of anxiety and also some depression. Past Medical History: His medical history includes anxiety, gastroesophageal reflux disease, gout, and type II diabetes. Past Surgical History: He underwent anterior discectomy at C3/4 and C4/5 with insertion of corpectomy cage C3-C5 on 06/28/2021. He has had no prior surgeries. Medications: Ativan 1 - 2 Tablet (of 0.5 mg) Oral q 4 hours PRN, Colace 2 Capsule (of 100 mg) Oral daily, Cymbalta 1 Capsule (of 30 mg) Capsule Delayed Release Particles Oral daily, Dexamethasone 1 Tablet (of 4 mg) Oral b.i.d., fentaNYL 1 Patch(es) (of 25 mcg/hr) Patch 72 Hr Transdermal q 3 days, Ibuprofen 1 Tablet (of 800 mg) Oral t.i.d., metFORMIN HCl 1 Tablet (of 500 mg) Oral daily, oxyCODONE HCl 1 - 3 Tablet (of 5 mg) Oral q 4 hours PRN, traZODone HCl 1 Tablet (of 100 mg) Oral at bedtime, Trulicity 0.5 mL (of 1.5 mg/0.5mL) Subcutaneous on Prakash, Zegerid OTC 1 Capsule (of 20-1100 mg) Oral daily Allergies: No Known Allergies. 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 He is a non-smoker, he does have a history of chewing 1 can of tobacco daily for 40 years. He has a history of at least moderate alcohol use, reported at 6 beers daily and occasional whiskey. Over the past 1 to 2 months he has cut down to the point that he is now drinking just occasionally. Family History: Father of lung cancer at age 55. Mother had heart attack and stroke. She age 78. A brother age 56 with a brain hemorrhage following a previous traumatic brain injury. He also had diabetes. A sister of colon cancer following previous treatment for cervical cancer. A paternal aunt had breast cancer. His grandfather had prostate cancer. His daughter has been treated for cervical cancer. Review Of Symptoms: Constitutional - He has been feeling bad for a long time. He has had a decrease in his activity due to the pain and he also has been more sleepy during the daytime because he has not been resting well at night. Appetite has not been good, he thinks his weight is down some. He has not had fever or night sweats, he has been having some chills. ECOG score is 1, Eyes - He has had gradual decline in vision, ENMT - He has hearing loss. No sinus congestion/drainage. No mouth sores. He has soreness in his throat and neck following the surgery, and he has been having some difficulty swallowing, Hematologic/Lymphatic - He has had some bruising, Respiratory - No shortness of breath. He has had a nonproductive cough for a long time. No pleuritic pain or hemoptysis, Cardiovascular - He has had some chest discomfort recently due to hiccups. He has no angina pain and no palpitations, Gastrointestinal - No nausea or vomiting.His acid reflux is adequately managed with medication. Recently he has had mild constipation. Currently no blood in the stool or black stools, but he did have blood in his stool previously when he was taking Protonix. He had a colonoscopy in the past, estimated at 25 years ago, Genitourinary (M) - No dysuria or hematuria. No urinary frequency. No urgency or incontinence, Musculoskeletal - He has pre-existing gout. He was having severe headaches after his COVID illness, and he gradually developed increasing pain in his neck and back. He has also had pain in the left chest area and in the left flank/hip area. He has been aware of a knot on the right side of his head, Integumentary - He has been treated for eczema on his legs, Neurologic - He was having headaches after COVID, but now just a little bit. He does not complain of dizziness. He has some numbness in the right shoulder area. He has no other focal neurologic symptoms, Psychiatric - He has been having anxiety and to a lesser extent depression. He has been having difficulty sleeping. Vital Signs: Performed on Jul 02, 2021 10:45: 8, 3, 38.31 (HIGH), 2.36 sq.m, 70 in, 96 %, 84 /min, 18 /min, 161/97 mm(hg) (HIGH), 98.1 F (LOW), and 267 lbs (HIGH). Physical Examination: Constitutional - He appears to be in reasonably good general health, Head - There is a firm mass palpable on the right side of the head, just above the ear. It measures about 5 cm, Eyes - Sclerae nonicteric. Conjunctivae clear, ENMT - No lesions noted in the oral cavity, Neck - There is mild soft tissue swelling in the neck. There is no mass or thyromegaly noted, Hematologic/Lymphatic - No cervical, clavicular, or axillary adenopathy, Respiratory - Lungs are clear with good air movement bilaterally, Cardiovascular - Heart rhythm is regular. There is no murmur, gallop, or rub noted, Abdomen - Soft. Liver and spleen are not enlarged. There is no abdominal mass or ascites noted and there is no inguinal adenopathy, Genitalia/Groin/Buttock (M) - There is no testicular mass noted, Back/Spine - No spine or CVA tenderness noted, Extremities - Mild edema. Pedal pulses are palpable bilaterally, Integumentary - There is an erythematous eruption in the anterior tibial area bilaterally. The appearance is consistent with eczema. There are no suspicious skin lesions noted, Neurologic - No focal neurologic deficits noted. Problem List: 1. Patient with multiple sites of metastatic bone involvement. The primary source of the malignancy is undetermined, but hepatocellular carcinoma is suspected. 2. Type 2 diabetes. 3. GERD. 4. Gout. 5. History of COVID-19 virus infection in January 2021. 6. Anxiety/depression. Problems Addressed with this Encounter and Plan: 1. Patient with multiple sites of metastatic bone involvement. The most significant area involvement is in the C4 vertebral body, for which he underwent C3-4 and C4-5 discectomy with insertion of corpectomy cage at C3-C5. There are multiple other sites of involvement in the spine, most significantly at T10, for which he is scheduled to have additional surgery this week. Other symptomatic sites of involvement include the T4 vertebral body, the right parietal calvarium, right scapula, left rib cage, and left iliac bone. The primary source of the malignancy is undetermined. However, based on the significantly elevated AFP level and the CT findings relative to the liver, hepatocellular carcinoma is suspected. The CT findings and images were reviewed with the patient and his family. Recommendations for further treatment will be deferred pending his further surgery and complete pathology results counts will include next generation sequencing. I may consider palliative radiation to some of the more symptomatic sites of bone involvement. In the meantime, I will have him increase his fentanyl to 50 mcg/h I will change his breakthrough pain medication to liquid morphine 20 mg/mL, 1 or 2 mL up to every 2 hours as needed. He will be given a prescription for metoclopramide for nausea, and he is given instructions to start a bowel regimen with senna/docusate. His pain medications will be further adjusted as necessary. 2. He has anxiety and depression. He has started treatment with duloxetine 30 mg daily. The dosage now will be increased to 60 mg daily. Signed By: Abdias Chandler M.D. <<Signature on File>>
== END 2021-07-02 08:22 | disposition home or self-care (01) ==
LOC: ONCMED 08:26
PROVIDERS: PCP Family Medicine; Visit Provider Internal Medicine Medical Oncology
DX: C79.51 Secondary malignant neoplasm of bone (principal); C80.1 Malignant (primary) neoplasm, unspecified; E11.9 Type 2 diabetes mellitus without complications; K21.9 Gastro-esophageal reflux disease without esophagitis; M10.9 Gout, unspecified; F41.9 Anxiety disorder, unspecified; F32.A Depression, unspecified; Z79.899 Other long term (current) drug therapy; Z86.16 Personal history of COVID-19; Z87.891 Personal history of nicotine dependence; Z80.1 Family history of malignant neoplasm of trachea, bronchus and lung; Z80.0 Family history of malignant neoplasm of digestive organs; Z80.8 Family history of malignant neoplasm of other organs or systems
CPT/HCPCS: 36415; 80053; 82728; 83540; 83550; 83615; 85025; 86705; 86706; 86709; 86803; 87340; 87635; 99205

== ENCOUNTER 2021-07-04 17:35 | Inpatient (IN) | payer OTHER, SELFPAY ==
[2021-07-03 14:38] VITALS: BMI 37.8
[2021-07-04] VITALS (79 sets, daily range): BP systolic 112–148; BP diastolic 75–94; PULSE 75–94; RESP 14–28; TEMP 36.4–36.8; O2SAT 91–100; BMI 38.6
--- NOTE | 2021-07-04 | SCC_ITS ---
Procedure done: 1. T4 kyphoplasty 2. T4 spine metastasis radiofrequency ablation 3. T10 spine metastasis radiofrequency ablation 4. T7-L1 instumentation 5. T7-L1 instrumentation 6. Use of computer navigation stereotactic for spine 124.1 seconds of fluoroscopic guidance, for a cumulative dose of 121.40 mGy and 37.1 mGy, was provided to Dr. Quevedo by the radiology department. C-arm images of the thoracic spine were saved for the patient's permanent record. MTDD
--- NOTE | 2021-07-04 10:58 | SC_ITS ---
WS: [id number] C-arm fluoroscopy for thoracic kyphoplasty, 07/04/2021 Clinical Data: Kyphoplasty and instrumented fusion Comparison: None. Findings: Thoracic kyphoplasty performed. SC/C-arm FL for Kyphoplasty Impression: Essick kyphoplasty.
--- NOTE | 2021-07-04 11:36 | ANES.PREANE2 ---
Pre-Anesthetic Assessment Height/Weight: Height 1.78 m Weight 119.748 kg Temp Pulse Resp BP Pulse Ox 98.3 F 87 16 121/87 95 07/04/21 11:04 07/04/21 11:04 07/04/21 11:04 07/04/21 11:04 07/04/21 11:04 Preop Diagnosis: T4 and T10 pathologic lesions Operation Date: 07/04/21 12:05 Proposed Procedures p T7-L1 fusion; [id number]/08731/icd-10-C41.2, C79.5/M84.48xa/(Not Applicable) - Andrew Quevedo, DO Was Beta Berta taken within 24 hours: N/A Was Clonidine taken within 24 hours: N/A Social No alcohol and No tobacco Exam alert, oriented x 3, clear to auscultation bilaterally and regular rate & rhythm Airway Submandibular: within normal limits Cervical ROM: Other (Limited extension and flexion s/p fusion) Mallampati: Class III Dentition: chipped Pulmonary None reported CV/HEM None reported None reported Hepatic Elevated liver enzymes Hepatocarcinoma suspected GI Gastroesophageal Reflux Disease Metabolic Diabetes Mellitus [facility] Metastatic bone lesions w/ acute fractures Neuropsych Anxiety and Depression Anesthetic Plan ASA status: 4 Anesthesia: Anesthesia Evaluation and General Other: Plan GETA w/ 2 IV, arterial line. Discussed with patient. 2 units ordered crossmatch and hold. Risk of > 500 ml blood loss (7ml/kg in children): Yes, adequate IV access and fluids planned Medications/Allergies Home Medications Medication Instructions Recorded Confirmed Last Taken Type dulaglutide 1.5 mg/0.5 mL 1.5 mg SUBCUT Q7D 06/27/21 06/27/21 07/02/21 History subcutaneous pen injector (Trulicity) metformin 500 mg tablet,extended 500 mg PO DAILY@12 06/27/21 07/03/21 07/03/21 History release 24 hr omeprazole 20 mg-sodium 1 cap PO DAILY 06/27/21 07/03/21 07/04/21 History bicarbonate 1.1 gram capsule (Zegerid OTC) dexamethasone 4 mg tablet 4 mg PO Q12H #60 tab 06/29/21 07/03/21 07/04/21 Rx naloxone 4 mg/actuation nasal 4 mg INTRANASAL Q2M PRN #2 ea 06/29/21 07/03/21 Unknown Rx spray (Narcan) sennosides 8.6 mg-docusate sodium 1 tab PO BID #60 tab 06/29/21 07/03/21 07/04/21 Rx 50 mg tablet (Stool Softener-Laxative) trazodone 100 mg tablet 100 mg PO BEDTIME PRN #20 tab 06/29/21 07/03/21 07/02/21 Rx duloxetine 30 mg capsule,delayed 60 mg PO DAILY 07/03/21 07/03/21 07/04/21 History release fentanyl 25 mcg/hr transdermal 50 mcg TRANSDERMAL Q72H 07/03/21 07/03/21 07/04/21 History patch lorazepam 0.5 mg tablet (Ativan) 1 mg PO QID PRN 07/03/21 07/03/21 07/04/21 History morphine 25 mg/mL injection 0.5 07/03/21 07/03/21 History solution Allergies Allergy/AdvReac Type Severity Reaction Status Date / Time No Known Allergies Allergy Verified 06/27/21 09:59 [facility] Anesthesia Medical History Diabetes mellitus GERD (gastroesophageal reflux disease) Gout Family History Other CAD (coronary artery disease) Cancer Diabetes Social History Smoking and tobacco status: never smoked Alcohol intake: current Data Anesthesia Cardiac Studies: No Data to Display
--- NOTE | 2021-07-04 11:37 | W.PM.OPSUD ---
Surgery/Procedure H&P Update DATE OF PROCEDURE: July 04, 2021 DATE H&P PERFORMED: 06/27/21 PREOP DIAGNOSIS: T4 and T10 pathologic lesions PRIMARY INDICATION FOR PROCEDURE: impending fracture PLANNED PROCEDURE: Operation Date: 07/04/21 12:05 Proposed Procedures p T7-L1 fusion; [id number]/icd-10-C41.2, C79.5/M84.48xa/(Not Applicable) - Andrew Quevedo DO
[2021-07-04 11:44] LABS: Glucose Point of Care 165 mg/dL (70-110)
[2021-07-04] MEDS: sodium chloride 0.9% 1,000 ML 30 ML IV (12:01)
--- NOTE | 2021-07-04 13:17 | ANES.PROC ---
Anesthesia Procedures Procedure/Date: 07/04/21 Procedure Narrative: Large bore access required. After sterile prep and using real time US guidance for vessel selection an 14 g PIV was inserted with real time visualization of needle entry and real time visualization of catheter advancement. Tolerated well. 1 attempt.
--- NOTE | 2021-07-04 13:18 | ANES.PROC ---
Anesthesia Procedures Procedure/Date: 07/04/21 Arterial Line: Time Out Performed: Yes Consent: from patient Size (Gauge): 20 Technique Used: other (Real time US visualition of needle entry and catheter advancement) Post-Procedure: dry sterile dressing placed Patient Tolerated Procedure: well Complications: none Site: right and radial Additional Comments: After sterile prep, using sterile technique, and using real time US guidance for vessel selection an 20 g radial arterial was inserted with real time visualization of needle entry and real time visualization of catheter advancement. Tolerated well. 1 attempt.
[2021-07-04] MEDS: iohexol 300 mg/mL 50 mL Btl (OR ONLY) XX (13:35)
[2021-07-04] MEDS: vancomycin 1,000 MG SDV 1000 MG XX (14:57)
--- NOTE | 2021-07-04 16:35 | P.OP_ITS ---
Operative Report Date of procedure: July 04, 2021 Pre-op diagnosis: Preop Diagnosis T4 and T10 pathologic lesions Post-op diagnosis: same Procedure done: 1. T4 kyphoplasty 2. T4 spine metastasis radiofrequency ablation 3. T10 spine metastasis radiofrequency ablation 4. T7-L1 instumentation 5. T7-L1 instrumentation 6. Use of computer navigation stereotactic for spine Estimated blood loss: 150 cc Procedure: 1. T4 kyphoplasty 2. T4 spine metastasis radiofrequency ablation 3. T10 spine metastasis radiofrequency ablation 4. T7-L1 instumentation 5. T7-L1 instrumentation 6. Use of computer navigation stereotactic for spine Patient was brought to the operative suite after undergoing anesthesia was placed in the prone position. All areas impingement were well-padded. Attention was brought first to doing the T4 kyphoplasty. Skin incision is made over the right and left pedicles. An awl from the kyphoplasty set was inserted. This was done under AP and lateral fluoroscopy. Once the awl was removed drill was inserted. Socially to 20 mm osteocool radiofrequency ablation probes were inserted and ablation was performed for approximately 7 minutes. Next attention was brought to performing the kyphoplasty. A balloon was inflated bilaterally. The balloon was removed. And then the cement was inserted approximately 4 cc of cement were inserted on the right and left sides. Which brought a good fill to the T4 vertebrae. Sterile dressings were then applied. Attention was then brought to draping at the T7 and below area. Patient was prepped and draped in normal sterile fashion. Skin incision was made from T7 down to L1. Subperiosteal dissection was made out to the transverse processes of T7-L1. The spinous process clamp was then placed on L1. Once the clamp for the fiducial was attached and then the C-arm was brought in once C-arm was spun then the information was loaded into the fiducial and the computer and this was used for placement of the pedicle screws. The technique for placing pedicle screws was using the gearshift linked to the computer navigation. Followed by using the pedicle feeler followed by place the screw under computer navigation. Screws were then placed using this technique bilaterally from T7-L1. Screws were not placed in the T10. Next attention was brought to doing the osteocool for the T10 pathologic metastatic lesion. The awl again was inserted into the pedicles of T10. Followed by the drill to size the ossicle probes. And then the osteocool radiofrequency ablation probes were inserted they were placed for approximately 13 minutes. Onc e this is completed the probes were removed. Next attention was brought to placing the rods onto the pedicle screws. Rods connected from T7 down to L1. And caps were brought in on top of the pedicle screws and locked into position. And torqued down. Next attention was brought to decorticating the lamina from T7 down to L1. And then the osteoamp bone graft was then packed into the gutters a deep drain and vancomycin powder were placed the wound was closed in layered fashion with 0 Vicryl 2-0 Vicryl and Monocryl suture Steri-Strips. Sterile dressings were applied patient was transferred to the PACU in stable condition.
--- NOTE | 2021-07-04 16:53 | XR_ITS ---
WS: [id number] ABDOMEN 1 VIEW(S) HISTORY: OR PIC COMPARISON: No similar studies. This examination was obtained within the OR in association with Villanueva dg placement. This study is very rotated with motion and overlying hardware. Villanueva rods are noted over the thoracolumbar region. Quality of this examination is suboptimal. No fractures identified. The rods and pedicles on this limited evaluation appear intact. XR/XR abdomen 1V* [id number] IMPRESSION: Limited quality examination of the abdomen. Villanueva rods extend throughout the thoracolumbar region and appear intact.
--- NOTE | 2021-07-04 17:00 | PM.CONSULT ---
Providers/Reason For Consult Consulting Physician/Specialty*: MD Geetha/internal medicine Reason for Consult*: Medical comorbidities Requesting Physician: MD Emy Attending Physician: Andrew Quevedo DO Primary Care Provider: Jasvir Thomas MD History of Present Illness History of Present Illness Michael Ravi is a 50 year old male with past medical history of type 2 diabetes mellitus, COVID-19 in January 2021, anxiety, depression, recent diagnosis of multiple metastatic disease to bone involving C4 vertebral body for which he underwent C3-4, C4-5 discectomy and insertion of corpectomy cage at C3 C5 recently on 06/28. Primary source of malignancy is since undetermined though hepatocellular carcinoma suspected. Patient today underwent T4 kyphoplasty, T4, T10 spine medicine radiofrequency ablation, T7-L1 instrumentation. Expected blood loss of 150 cc. Medicine was consulted for multiple medical comorbidities. Last [place] in the system was from June 2039 shows a white count 10.9, hemoglobin of 12.3, sodium 142, creatinine 0.5, TIBC showing iron of 42, AST/ALT of 46//78, hepatitis panel negative, COVID-19 PCR negative Review of Systems General: Reports: ROS unobtainable due to mental status (Due to postoperative status) Medications/Allergies Home Medications Medication Instructions Recorded Confirmed Last Taken Type dulaglutide 1.5 mg/0.5 mL 1.5 mg SUBCUT Q7D 06/27/21 06/27/21 07/02/21 History subcutaneous pen injector (Trulicity) metformin 500 mg tablet,extended 500 mg PO DAILY@12 06/27/21 07/03/21 07/03/21 History release 24 hr omeprazole 20 mg-sodium 1 cap PO DAILY 06/27/21 07/03/21 07/04/21 History bicarbonate 1.1 gram capsule (Zegerid OTC) dexamethasone 4 mg tablet 4 mg PO Q12H #60 tab 06/29/21 07/03/21 07/04/21 Rx naloxone 4 mg/actuation nasal 4 mg INTRANASAL Q2M PRN #2 ea 06/29/21 07/03/21 Unknown Rx spray (Narcan) sennosides 8.6 mg-docusate sodium 1 tab PO BID #60 tab 06/29/21 07/03/21 07/04/21 Rx 50 mg tablet (Stool Softener-Laxative) trazodone 100 mg tablet 100 mg PO BEDTIME PRN #20 tab 06/29/21 07/03/21 07/02/21 Rx duloxetine 30 mg capsule,delayed 60 mg PO DAILY 07/03/21 07/03/21 07/04/21 History release fentanyl 25 mcg/hr transdermal 50 mcg TRANSDERMAL Q72H 07/03/21 07/03/21 07/04/21 History patch lorazepam 0.5 mg tablet (Ativan) 1 mg PO QID PRN 07/03/21 07/03/21 07/04/21 History morphine 25 mg/mL injection 0.5 07/03/21 07/03/21 History solution Allergies Allergy/AdvReac Type Severity Reaction Status Date / Time No Known Allergies Allergy Verified 06/27/21 09:59 Current Medications Generic Name Dose Route Start Last Admin Trade Name Freq PRN Reason Stop Dose Admin Sodium Chloride 1,000 mls @ 30 mls/hr 07/04/21 11:00 07/04/21 12:01 Sodium Chloride 0.9% IV 07/05/21 10:59 30 mls/hr .Q24H ARIEL Administration PFSH Acute PFSH: Medical History (Updated 07/04/21 @ 17:08 by Kalin Iniguez MD) Anxiety Cervical spine fracture COVID-19 Diabetes mellitus GERD (gastroesophageal reflux disease) Gout Macrocytosis Multiple lesions of metastatic malignancy Pathologic cervical vertebral fracture Surgical History (Updated 07/04/21 @ 17:08 by Kalin Iniguez MD) H/O cervical discectomy Spinal surgery in prior 3 months Family History Other CAD (coronary artery disease) Cancer Diabetes Social History Smoking and tobacco status: never smoked Alcohol intake: current Vitals/I&O/Wt Last Vital Signs Temp 98.3 F 07/04/21 11:04 Pulse 87 07/04/21 11:04 Resp 16 07/04/21 11:04 BP 121/87 07/04/21 11:04 Pulse Ox 95 07/04/21 11:04 07/04/21 07/04/21 07/04/21 06:59 14:59 22:59 Intake Total 60 / 60 Balance 60 / 60 Weight last 48 hrs Weight 119.748 kg Physical Exam Narrative: EXAM NARRATIVE: General: No acute distress, drowsy postoperatively, in cervical collar HEENT: PERRLA, pupils bilaterally equal and reactive Chest: Normal vesicular breath sounds, no added sounds, equal good air entry bilaterally CVS: S1-S2 regular, no murmurs, no tachycardia, no gallops, no rubs Abdomen: Morbidly obese, soft, nontender, no organomegaly, bowel sounds present Neuro: No focal deficits, no facial deformity, AO x3, power 5/5 in all limbs Urinary Catheter Management: Germain: Cath Placed During This Visit: yes Urinary Catheter Date of Insertion: 07/04/21 Urinary Catheter Time of Insertion: 13:30 Data : 07/04/21 20:20 07/05/21 02:49 A&P Assessment and plan (1) Encounter for postoperative care: Status: Acute (2) Multiple lesions of metastatic malignancy: Status: Acute (3) Diabetes mellitus: Status: Acute Plan 50-year-old gentleman past medical history of recently diagnosed metastatic lesion spine and bone with undetermined primary with recent surgery with cervical discectomy and corpectomy for unstable cervical pathological fracture who underwent thoracolumbar spinal surgery today. Postoperative care: Anticoagulation, diet, physical therapy, perioperative antibiotics as per primary team. Check CBC, CMP,. Monitor hemoglobin. Type 2 diabetes mellitus: Recent HbA1c 6.9. Stop OHA. Start insulin sliding scale low-dose protocol. Carb consistent diet. Metastatic lesion to bones: Unknown primary. Hepatocellular carcinoma suspected. Continue with home dose of dexamethasone. Continue with pain medication as per home dose. Continue with home fentanyl patch. Iron deficiency anemia: Start on oral supplementation. Monitor hemoglobin. Thank you for involving us in the care of Mr. Ravi. Please call with any questions. Consult Attestations Medical Necessity Statement: As per primary team. 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
[2021-07-04 17:35] LABS: Glucose Point of Care 157 mg/dL (70-110)
[2021-07-04] MEDS: HYDROcodone-acetaminophen 5-325 mg Tablet PO (18:15)
[2021-07-04] MEDS: ferrous gluconate 324 mg Tablet PO (19:06)
--- NOTE | 2021-07-04 19:30 | PC.NURSE ---
Report received from day shift RN. Patient assessed at this time. Patient is complaining of severe 10/[address] Tyson notified of the patient's pain and current at home pain management regimen. Awaiting doctors orders for pain medication. All patient vital signs are stable at this time. C collar noted to patient'e neck from previous neck surgery. Surgical site to patient's back is clean and dry. No drainage noted. Hemovac drain noted to lower back. 350ml bright red ronald blood emptied from drain. Right radial art line noted. Art line zeroed and leveled. Good waveform noted. Right wrist site is clean and dry. No bleeding, oozing, or hematoma noted. Patient's family remains at the bedside. Admission completed at this time. Will continue to monitor the patient closely and notify MD of changes.
[2021-07-04] MEDS: lactated ringers 1,000 ML 90 ML IV (20:23)
[2021-07-04 20:47] LABS: Basophils # 0.1 10^3/uL (0.0-0.1); Basophils % 0.5 %; Hematocrit 31.5 % (42.0-52.0); Hemoglobin 11.2 g/dL (11.7-16.6); Lymphocytes # 0.8 10^3/uL (0.8-4.8); Lymphocytes % 3.9 %; Mean Corpuscular HGB Conc 35.6 g/dL (30.0-36.0); Mean Corpuscular Hemoglobin 36.2 pg (28.0-34.0); Mean Corpuscular Volume 101.9 fl (80-94); Mean Platelet Volume 10.9 fL (7.4-10.4); Monocytes # 1.7 10^3/uL (0.2-0.9); Monocytes % 8.6 %; Neutrophils # 16.11 10^3/uL (1.8-7.7); Neutrophils % 82.5 %; Nucleated Red Blood Cells % 0 %; Platelet Count 244 10^3/cmm (130-400); Red Blood Count 3.09 10^6/uL (4.1-5.3); Red Cell Distribution Width 12.2 % (12.1-15.1); White Blood Count 19.5 10^3/uL (4.0-10.0)
[2021-07-04] MEDS: morphine 10 mg/0.5 mL oral liq UD 20 MG PO (21:02)
[2021-07-04] MEDS: ketorolac 30 mg/mL INJ IVP (21:07)
[2021-07-04 21:12] LABS: Alanine Aminotransferase 54 U/L (0-41); Albumin Level 3.1 g/dL (3.5-5.2); Alkaline Phosphatase 155 IU/L (40-130); Anion Gap 15.6 (5-19); Aspartate Amino Transferase 51 U/L (0-40); Blood Urea Nitrogen 17 mg/dL (6-20); Calcium 7.7 mg/dL (8.5-10.5); Carbon Dioxide 20 mmol/L (22-29); Chloride 99 mmol/L (98-107); Globulin 2.9 g/dL (1.3-4.6); Glucose 184 mg/dL (65-115); Osmolality Calculated 276 mOsm/kg (285-295); Potassium 4.6 mmol/L (3.5-5.1); Sodium 130 mmol/L (136-145); Total Bilirubin 1.2 mg/dL (0.15-1.2)
[2021-07-04] MEDS: magnesium hydroxide 30 mL UDC PO (21:16)
[2021-07-04 21:23] LABS: Thyroid Stimulating Hormone 1.49 uIU/mL (0.27-4.20)
[2021-07-04] MEDS: insulin lispro 100 unit/1 mL SUBCUT (21:56)
[2021-07-04] MEDS: LORazepam 0.5 mg Tablet 1 MG PO (22:13)
[2021-07-04] MEDS: fentaNYL 50 mcg Patch 1 PATCH TRANSDERMA (23:12)
[2021-07-04] MEDS: trazodone 100 mg Tablet PO (23:39)
[2021-07-05] VITALS (60 sets, daily range): BP systolic 88–143; BP diastolic 50–92; PULSE 79–98; RESP 12–22; TEMP 36.6–36.8; O2SAT 89–94
[2021-07-05] MEDS: morphine 10 mg/0.5 mL oral liq UD 20 MG PO ×4 (01:01→20:31)
[2021-07-05] MEDS: ketorolac 30 mg/mL INJ IVP ×2 (03:06→08:52)
[2021-07-05 04:43] LABS: Alanine Aminotransferase 49 U/L (0-41); Albumin Level 2.9 g/dL (3.5-5.2); Alkaline Phosphatase 135 IU/L (40-130); Anion Gap 17.3 (5-19); Aspartate Amino Transferase 48 U/L (0-40); Blood Urea Nitrogen 18 mg/dL (6-20); Calcium 8.4 mg/dL (8.5-10.5); Carbon Dioxide 19 mmol/L (22-29); Chloride 100 mmol/L (98-107); Globulin 2.9 g/dL (1.3-4.6); Glomerular Filtration Rate 175.3 mL/min (90-130); Glucose 112 mg/dL (65-115); Osmolality Calculated 277 mOsm/kg (285-295); Potassium 4.3 mmol/L (3.5-5.1); Sodium 132 mmol/L (136-145); Total Bilirubin 0.9 mg/dL (0.15-1.2); Total Protein 5.8 g/dL (6.6-8.7)
[2021-07-05 04:46] LABS: Chol HDL Ratio 4.17 mg/dL (1.0-5.00); Cholesterol 125 mg/dL (0-200); HDL Cholesterol 30 mg/dL (60-100); LDL Cholesterol Calculated 78 mg/dL (50-129); Triglycerides 84 mg/dL (0-150); VLDL Cholestrol Calculation 17 mg/dL (0-30)
[2021-07-05 05:01] LABS: Estmated Average Glucose 120; Hemoglobin A1C 5.8 % (4.0-6.0)
[2021-07-05] MEDS: dexamethasone 4 mg Tablet PO ×2 (05:15→16:36)
--- NOTE | 2021-07-05 08:16 | P.PN_ITS ---
Subjective Subjective: Interval history: resting in bed Vitals/I&O/Wt Last Vital Signs Temp 97.9 F 07/05/21 00:01 Pulse 87 07/05/21 06:24 Resp 20 H 07/05/21 06:15 BP 101/61 07/05/21 06:15 Pulse Ox 91 07/05/21 06:00 07/04/21 07/05/21 07/05/21 22:59 06:59 14:59 Intake Total 773 / 833 540 / 1373 Output Total 550 / 550 1000 / 1550 Balance 223 / 283 -460 / -177 Weight last 48 hrs Weight 269 lb 1.6 oz Weight 264 lb Physical Exam Narrative: EXAM NARRATIVE: resting in bed; bp low Urinary Catheter Management: Germain: Cath Placed During This Visit: yes Reason for Continuing Indwelling Catheter: Accurate Measurement of Urinary Output in Critically Ill Patients Urinary Catheter Date of Insertion: 07/04/21 Urinary Catheter Time of Insertion: 13:30 Data : 07/04/21 20:20 07/05/21 02:49 A&P Assessment and plan (1) Encounter for postoperative care: POD#1 T7-L1 Posterior spine fusion for spinal mets; T4 Kyphoplasty UP with PT Check H/H Status: Acute Attestations Medical Necessity Statement*: low BP pain control Procedures Arterial Line Size (Gauge): 20 Coding Level of Care 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
[2021-07-05] MEDS: lactated ringers 1,000 ML 90 ML IV ×2 (08:32→19:45)
[2021-07-05] MEDS: insulin lispro 100 unit/1 mL SUBCUT ×3 (08:53→18:26)
[2021-07-05] MEDS: docusate sodium 100 mg Capsule PO ×2 (08:53→18:26)
[2021-07-05] MEDS: ferrous gluconate 324 mg Tablet PO ×2 (08:53→18:26)
[2021-07-05] MEDS: sennosides-docusate Tablet 1 TAB PO ×2 (08:54→18:26)
[2021-07-05] MEDS: duloxetine 30 mg Capsule 60 MG PO (08:54)
[2021-07-05] MEDS: pantoprazole DR 40 mg Tablet PO (08:54)
[2021-07-05] MEDS: polyethylene glycol 3350 Pkt 17 gm PO (08:55)
[2021-07-05 09:11] LABS: Glucose Point of Care 150 mg/dL (70-110)
[2021-07-05 09:58] LABS: Hemoglobin 9.8 g/dL (11.7-16.6)
[2021-07-05 12:23] LABS: Glucose Point of Care 188 mg/dL (70-110)
--- NOTE | 2021-07-05 15:53 | P.PN_ITS ---
Subjective Subjective: Interval history: Pain is well controlled, no new complaints today. Drainage output at 500 cc. Hemoglobin at 9.8. Hemodynamically stable. Postop leukocytosis noted at 19. Afebrile Vitals/I&O/Wt Last Vital Signs Temp 97.8 F 07/05/21 08:01 Pulse 91 07/05/21 14:00 Resp 16 07/05/21 12:00 BP 88/50 07/05/21 12:00 Pulse Ox 91 07/05/21 12:00 07/05/21 07/05/21 07/05/21 06:59 14:59 22:59 Intake Total 540 / 1373 1240 / 1240 Output Total 1000 / 1550 Balance -460 / -177 1240 / 1240 Weight last 48 hrs Weight 122.062 kg Physical Exam Narrative: EXAM NARRATIVE: GEN: Awake, alert and oriented, no acute distress, lying in bed with c-collar in place CVS: S1S2 N RS: CTA B/L all areas Abd: Soft, nt/nd , bs+ [employer] CHIEF: no focal neuro deficits Urinary Catheter Management: Germain: Cath Placed During This Visit: yes Reason for Continuing Indwelling Catheter: Accurate Measurement of Urinary Output in Critically Ill Patients Urinary Catheter Date of Insertion: 07/04/21 Urinary Catheter Time of Insertion: 13:30 Data : 07/05/21 09:00 07/05/21 02:49 A&P Assessment and plan (1) Encounter for postoperative care: Status: Acute (2) Multiple lesions of metastatic malignancy: Status: Acute (3) Diabetes mellitus: Status: Acute Plan 50-year-old gentleman past medical history of recently diagnosed metastatic lesion spine and bone with undetermined primary with recent surgery with cervical discectomy and corpectomy for unstable cervical pathological fracture who underwent thoracolumbar spinal surgery today. Postoperative care: Anticoagulation, diet, physical therapy, perioperative antibiotics as per primary team. Monitor hemoglobin, currently at 9.8. Leukocytosis of 19 likely related to being immediately postop. Type 2 diabetes mellitus: Recent HbA1c 6.9. insulin sliding scale low-dose protocol. Carb consistent diet. Metastatic lesion to bones: Unknown primary. Hepatocellular carcinoma suspected. Continue with home dose of dexamethasone. Continue with pain medication as per home dose. Continue with home fentanyl patch, currently has a 50 pipo patch on. Pain is currently well controlled Iron deficiency anemia: Start on oral supplementation. Monitor hemoglobin. . Attestations Medical Necessity Statement*: Per admitting team Procedures Arterial Line Size (Gauge): 20 Coding Level of Care Code Acute [employer] Barrel Ribs for Chg Fwd Diagnoses Encounter for postoperative care Z48.89 Multiple lesions of metastatic malignancy C79.9 Diabetes mellitus E11.9
[2021-07-05] MEDS: LORazepam 0.5 mg Tablet 1 MG PO (16:36)
[2021-07-05 16:48] LABS: Glucose Point of Care 158 mg/dL (70-110)
--- NOTE | 2021-07-05 19:41 | PC.NURSE ---
Shift Note Hemovac noted to to lower back with 200 ml out for am shift. Germain to gravity and C-Collar noted for when the patient is out of bed. Family at bedside. Pt ambulated on the unit with physical therapy. pt tolerated well. Pain treated well today with Morphine liquid and toradol. Frequent safety and comfort rounds continue. Orders and/or nursing care completed as indicated. Patient monitored for response to intervention and treatment(s). Patient and family educated on medications and treatment plan. Will continue to monitor.
[2021-07-05 20:38] LABS: Glucose Point of Care 133 mg/dL (70-110)
[2021-07-05] MEDS: ondansetron 2 mg/ML SDV 2 mL 4 MG IVP (21:19)
[2021-07-06] VITALS (44 sets, daily range): BP systolic 104–148; BP diastolic 67–92; PULSE 84–104; RESP 12–24; TEMP 36.6; O2SAT 87–94
[2021-07-06] MEDS: LORazepam 0.5 mg Tablet 1 MG PO ×2 (00:03→08:02)
[2021-07-06] MEDS: trazodone 100 mg Tablet PO (00:05)
[2021-07-06] MEDS: ketorolac 30 mg/mL INJ IVP (00:06)
--- NOTE | 2021-07-06 00:19 | PC.NURSE ---
Patient requesting pain medication, medication for anxiety, and medication to help him sleep. PRN's administered. Please see mar for details. Immediately following med administration, patient vomitted approximately 250mls thin castaneda colored emesis with food particles. No pills noted in the emesis. Ice water and cool rags provided to help make the patient more comfortable. Will continue to monitor.
[2021-07-06] MEDS: dexamethasone 4 mg Tablet PO ×2 (03:20→16:43)
[2021-07-06] MEDS: ondansetron 2 mg/ML SDV 2 mL 4 MG IVP ×2 (03:20→08:24)
[2021-07-06] MEDS: enoxaparin 40 mg/0.4 mL Syringe SUBCUT (05:23)
[2021-07-06] MEDS: lactated ringers 1,000 ML 90 ML IV (05:24)
--- NOTE | 2021-07-06 06:05 | PC.NURSE ---
Shift note Frequent safety and comfort rounds continued throughout the shift. Orders and nursing care completed as indicated. Patient monitored for response to intervention and treatment(s). Education provided includes early mobility. Patient and verbalized understanding. PRN medication for anxiety, pain, nausea, and insomnia administered throughout the night at the patient's request. Please see mar for details. Overall, patient's night was uneventful.
[2021-07-06 07:32] LABS: Glucose Point of Care 158 mg/dL (70-110)
[2021-07-06] MEDS: ferrous gluconate 324 mg Tablet PO ×2 (07:58→17:27)
[2021-07-06] MEDS: insulin lispro 100 unit/1 mL SUBCUT ×4 (07:58→21:02)
[2021-07-06] MEDS: duloxetine 30 mg Capsule 60 MG PO (07:58)
[2021-07-06] MEDS: pantoprazole DR 40 mg Tablet PO (08:00)
[2021-07-06] MEDS: sennosides-docusate Tablet 1 TAB PO ×2 (08:00→17:27)
[2021-07-06] MEDS: docusate sodium 100 mg Capsule PO ×2 (08:00→17:27)
[2021-07-06] MEDS: polyethylene glycol 3350 Pkt 17 gm PO ×2 (08:00→17:28)
[2021-07-06] MEDS: morphine 10 mg/0.5 mL oral liq UD 20 MG PO ×3 (08:02→21:02)
--- NOTE | 2021-07-06 09:13 | PC.NURSE ---
frequent c/o pain and nausea following po pain med at bedside . up with assist of pt at this time with c collar in place when up
--- NOTE | 2021-07-06 09:30 | P.PN_ITS ---
Subjective Subjective: Interval history: POD 2 Pt up ambulating with physical therapy assistance. His family is present. He denies any headaches chest pain lightheadedness. Denies any shortness of breath. Vitals/I&O/Wt Last Vital Signs Temp 98.2 F 07/05/21 16:01 Pulse 99 07/06/21 06:01 Resp 14 07/06/21 06:01 BP 115/82 07/06/21 06:01 Pulse Ox 89 L 07/06/21 06:01 07/05/21 07/06/21 07/06/21 22:59 06:59 14:59 Intake Total 1180 / 2420 988.5 / 3408.5 Output Total 1000 / 1000 950 / 1950 Balance 180 / 1420 38.5 / 1458.5 Weight last 48 hrs Weight 269 lb 1.6 oz Physical Exam Narrative: EXAM NARRATIVE: Patient presents alert and oriented x3 with a good general appearance normal normal affect. Normal coordination normal stability. Moderately tender around the incisional site with the incision appear to be healing nicely. No signs of erythema or drainage. No signs of infection. Patient denies any fevers or chills. 5/5 motor strength both lower extremities with negative straight leg raise bilaterally. Calves are supple no medial thigh tenderness. Pulses are 2+ at the dorsalis pedis and posterior tibial region. Good capillary refill throughout normal sensation light touch both lower extremities. Urinary Catheter Management: Germain: Cath Placed During This Visit: yes Reason for Continuing Indwelling Catheter: Accurate Measurement of Urinary Output in Critically Ill Patients Urinary Catheter Date of Insertion: 07/04/21 Urinary Catheter Time of Insertion: 13:30 Data : 07/05/21 09:00 07/05/21 02:49 A&P Assessment and plan (1) Encounter for postoperative care: Please change dressing will DC the Hemovac drain. We will DC the Germain cathete r. Encourage incentive spirometry for pulmonary toilet. Continue to work on mobilizing. Work on discharge home today if not today is okay from orthopedic standpoint to transfer him out of the ICU to regular floor. 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
--- NOTE | 2021-07-06 10:42 | PC.NURSE ---
up in chair for approximatley 2 hrs.. collins removed and drain back removed with dressing changed and art line removed... linen change done and bath
[2021-07-06 11:15] LABS: Glucose Point of Care 199 mg/dL (70-110)
--- NOTE | 2021-07-06 11:55 | XRR_ITS ---
PROCEDURE INFORMATION: Exam: XR Chest Exam date and time: 07/06/2021 11:55 AM Age: 50 years old Clinical indication: Hypoxia TECHNIQUE: Imaging protocol: XR of the chest. Views: 1 view. COMPARISON: CT chest w con* [id number] 06/27/2021 8:36 AM FINDINGS: Lungs: No pneumonia or pulmonary edema. Pleural spaces: No pleural effusion or pneumothorax. Heart/Mediastinum: The cardiac silhouette is not enlarged. The mediastinal contours are normal. Bones/joints: Destructive lesion with extra-axial soft tissue extension redemonstrated in the lateral left 4th rib. Interval posterior dg fusion bridging the thoracolumbar junction. Interval vertebral augmentation at the T4 vertebral body. Suspect prior cervical spine corpectomy and anterior plate fusion. Soft tissues: See Bones/joints section. XR/XR chest 1V portable [id number] IMPRESSION: 1. No pneumonia or pulmonary edema. 2. Changes related to multifocal osseous malignancy.
--- NOTE | 2021-07-06 14:21 | PC.NURSE ---
Dr Chandler here with consult done for outpt pt very distress and noted with more pain now not able to go home today . Dr elliott called to stay to am if needed
[2021-07-06] MEDS: ketorolac 10 mg Tablet PO (15:30)
[2021-07-06 16:34] LABS: Basophils # 0.1 10^3/uL (0.0-0.1); Basophils % 0.4 %; Hematocrit 32.4 % (42.0-52.0); Hemoglobin 11.2 g/dL (11.7-16.6); Lymphocytes % 4.5 %; Mean Corpuscular HGB Conc 34.6 g/dL (30.0-36.0); Mean Corpuscular Hemoglobin 36.1 pg (28.0-34.0); Mean Corpuscular Volume 104.5 fl (80-94); Mean Platelet Volume 10.9 fL (7.4-10.4); Monocytes # 1.8 10^3/uL (0.2-0.9); Monocytes % 7.9 %; Neutrophils % 82.3 %; Nucleated Red Blood Cells % 0 %; Platelet Count 308 10^3/cmm (130-400); Red Cell Distribution Width 12.6 % (12.1-15.1)
[2021-07-06 17:09] LABS: Alanine Aminotransferase 43 U/L (0-41); Alkaline Phosphatase 159 IU/L (40-130); Aspartate Amino Transferase 47 U/L (0-40); Blood Urea Nitrogen 16 mg/dL (6-20); Calcium 8.7 mg/dL (8.5-10.5); Carbon Dioxide 21 mmol/L (22-29); Chloride 97 mmol/L (98-107); Globulin 3.4 g/dL (1.3-4.6); Glucose 193 mg/dL (65-115); Osmolality Calculated 278 mOsm/kg (285-295); Sodium 131 mmol/L (136-145); Total Bilirubin 1.4 mg/dL (0.15-1.2); Total Protein 6.4 g/dL (6.6-8.7)
--- NOTE | 2021-07-06 17:42 | PM.PN ---
Subjective Subjective: Interval history: Transiently noted to have saturation 87 to 89% when asleep. Now currently between 91 to 95% on room air when awake. Suspect that patient may have some degree of sleep apnea. Chest x-ray without any pulmonary infiltrates. Complains of some pain. Hemoglobin stable 11.2. Vitals/I&O/Wt Last Vital Signs Temp 98.2 F 07/05/21 16:01 Pulse 98 07/06/21 14:00 Resp 15 07/06/21 12:01 BP 117/84 07/06/21 12:01 Pulse Ox 91 07/06/21 09:00 07/06/21 07/06/21 07/06/21 06:59 14:59 22:59 Intake Total 988.5 / 3408.5 150 / 150 1000 / 1150 Output Total 950 / 1950 Balance 38.5 / 1458.5 150 / 150 1000 / 1150 Weight last 48 hrs Weight 122.062 kg Physical Exam Urinary Catheter Management: Germain: Cath Placed During This Visit: yes Reason for Continuing Indwelling Catheter: Accurate Measurement of Urinary Output in Critically Ill Patients Urinary Catheter Date of Insertion: 07/04/21 Urinary Catheter Time of Insertion: 13:30 Data : 07/06/21 16:07 07/06/21 16:07 A&P Assessment and plan (1) Encounter for postoperative care: Status: Acute (2) Multiple lesions of metastatic malignancy: Status: Acute (3) Diabetes mellitus: Status: Acute Plan 50-year-old gentleman past medical history of recently diagnosed metastatic lesion spine and bone with undetermined primary with recent surgery with cervical discectomy and corpectomy for unstable cervical pathological fracture who underwent thoracolumbar spinal surgery today. Postoperative care: Anticoagulation, diet, physical therapy, perioperative antibiotics as per primary team. Hemoglobin is currently stable at 11. Blood sugar is well controlled. O2 sats of 87 to 89% when asleep, awakens 91 to 95% on room air. Suspect patient may have some underlying sleep apnea, recommend outpatient evaluation for the same. Chest x-ray without any infiltrates. Leukocytosis likely related to margination from steroids versus postop state. Type 2 diabetes mellitus: Recent HbA1c 6.9. insulin sliding scale low-dose protocol. Carb consistent diet. Home medications can be resumed at discharge. Metastatic lesion to bones: Unknown primary. Hepatocellular carcinoma suspected. Continue with home dose of dexamethasone. Continue with pain medication as per home dose. Continue with home fentanyl patch, currently has a 50 pipo patch on. No contraindication for discharge from a medicine standpoint. . 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
[2021-07-06 17:43] LABS: Glucose Point of Care 212 mg/dL (70-110)
[2021-07-06 23:01] LABS: Glucose Point of Care 187 mg/dL (70-110)
[2021-07-07] VITALS (14 sets, daily range): BP systolic 111–155; BP diastolic 73–113; PULSE 99–109; RESP 12–21; TEMP 36.6; O2SAT 86–91
[2021-07-07] MEDS: LORazepam 0.5 mg Tablet 1 MG PO (00:31)
[2021-07-07] MEDS: trazodone 100 mg Tablet PO (00:33)
[2021-07-07] MEDS: metoclopramide 10 mg Tablet 5 MG PO (00:45)
[2021-07-07] MEDS: enoxaparin 40 mg/0.4 mL Syringe SUBCUT (05:18)
[2021-07-07] MEDS: dexamethasone 4 mg Tablet PO (05:18)
[2021-07-07] MEDS: ketorolac 10 mg Tablet PO ×2 (05:44→13:59)
[2021-07-07] MEDS: morphine 10 mg/0.5 mL oral liq UD 20 MG PO ×2 (05:44→13:32)
--- NOTE | 2021-07-07 06:19 | PC.NURSE ---
Shift note Frequent safety and comfort rounds continued throughout the shift. Orders and nursing care completed as indicated. Patient monitored for response to intervention and treatment(s). Education provided includes early mobility. Patient and verbalized understanding. PRN medication for anxiety, pain, and insomnia administered throughout the night at the patient's request. Please see mar for details. Patient states that he is feeling better today and that he is excited to get to go home today. Overall, patient's night was uneventful.
[2021-07-07] MEDS: pantoprazole DR 40 mg Tablet PO (08:09)
[2021-07-07] MEDS: duloxetine 30 mg Capsule 60 MG PO (08:09)
[2021-07-07] MEDS: sennosides-docusate Tablet 1 TAB PO (08:09)
[2021-07-07] MEDS: polyethylene glycol 3350 Pkt 17 gm PO (08:10)
[2021-07-07] MEDS: docusate sodium 100 mg Capsule PO (08:10)
[2021-07-07 08:17] LABS: Glucose Point of Care 177 mg/dL (70-110)
[2021-07-07] MEDS: insulin lispro 100 unit/1 mL SUBCUT ×2 (08:28→13:31)
--- NOTE | 2021-07-07 09:59 | PC.NURSE ---
family here preparing to discharge at this time ... Dr hancock called clarified to stop iron and to continue toradol at home.. waiting for equipment to be delivered to home
--- NOTE | 2021-07-07 12:00 | PC.NURSE ---
awaiting equipment set up at home for discharge hospital bed
--- NOTE | 2021-07-07 13:01 | PM.PN ---
Subjective Subjective: Interval history: POD 3 Pt feeling much better. Mild back pain. Denies SOB/CP or SOB Vitals/I&O/Wt Last Vital Signs Temp 98 F 07/06/21 15:00 Pulse 99 07/07/21 12:00 Resp 13 07/07/21 12:00 BP 140/84 07/07/21 12:00 Pulse Ox 88 L 07/07/21 12:00 07/06/21 07/07/21 07/07/21 22:59 06:59 14:59 Intake Total 1370 / 1520 120 / 1640 200 / 200 Output Total 0 / 0 725 / 725 Balance 1370 / 1520 -605 / 915 200 / 200 Physical Exam Narrative: EXAM NARRATIVE: Patient presents alert and oriented x3 with a good general appearance normal normal affect. Normal coordination normal stability. Mild tenderness around the incisional site with the incision appear to be healing nicely. No signs of erythema or drainage. No signs of infection. Patient denies any fevers or chills. 5/5 motor strength both lower extremities with negative straight leg raise bilaterally. Calves are supple no medial thigh tenderness. Pulses are 2+ at the dorsalis pedis and posterior tibial region. Good capillary refill throughout normal sensation light touch both lower extremities. Urinary Catheter Management: Germain: Cath Placed During This Visit: yes, but has since been removed by the nurse Reason for Continuing Indwelling Catheter: Accurate Measurement of Urinary Output in Critically Ill Patients Urinary Catheter Date of Insertion: 07/04/21 Urinary Catheter Time of Insertion: 13:30 Date Urinary Catheter Removed: 07/06/21 Time Urinary Catheter Discontinued: 14:00 Data : 07/06/21 16:07 07/06/21 16:07 A&P Assessment and plan (1) Encounter for postoperative care: Continue walking program patient was encouraged to continue walking program. No bending lifting or twisting activities. See him back in the office in 1 week's time for follow-up. 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
[2021-07-07 13:42] LABS: Glucose Point of Care 194 mg/dL (70-110)
[2021-07-07] MEDS: fentaNYL 50 mcg Patch 1 PATCH TRANSDERMA (14:00)
--- NOTE | 2021-07-10 08:19 | P.DS_ITS ---
Discharge Providers Date of Admission: 07/04/21 17:35 Date of Discharge: July 07, 2021 Attending Provider at Admission: Andrew Quevedo DO Attending Provider at Discharge: Andrew Quevedo DO Primary Care Provider: Jasvir Thomas MD Diagnoses at Discharge Discharge Diagnosis (1) Encounter for postoperative care: Status: Resolved Hospital Course Hospital Course Patient's hospital course was uneventful. He did consult with Dr. Chandler from oncology. Physical Exam Urinary Catheter Management: Germain: Cath Placed During This Visit: yes, but has since been removed by the nurse Reason for Continuing Indwelling Catheter: Accurate Measurement of Urinary Output in Critically Ill Patients Urinary Catheter Date of Insertion: 07/04/21 Urinary Catheter Time of Insertion: 13:30 Date Urinary Catheter Removed: 07/06/21 Time Urinary Catheter Discontinued: 14:00 Discharge Data Studies Completed and Pending Completed Studies During Hospitalization Category Date Time Status CXRP [XR chest 1V portable [id number]] Routine Exams 07/06/21 11:55 Completed XR abdomen 1V* 61099 Routine Exams 07/04/21 16:53 Completed Pathology: Surgical [PTH] Routine Pth 07/04/21 17:25 Completed Radiology Impressions C-Arm Fluoroscopy 07/04/21 10:58 Impression: Essick kyphoplasty. Abdomen X-Ray 07/04/21 16:53 IMPRESSION: Limited quality examination of the abdomen. Villanueva rods extend throughout the thoracolumbar region and appear intact. Chest X-Ray 07/06/21 11:55 IMPRESSION: 1. No pneumonia or pulmonary edema. 2. Changes related to multifocal osseous malignancy. Laboratory Results WBC 23.0 10^3/uL (4.0-10.0) H 07/06/21 16:07 RBC 3.10 10^6/uL (4.1-5.3) L 07/06/21 16:07 Hgb 11.2 g/dL (11.7-16.6) L 07/06/21 16:07 Hct 32.4 % (42.0-52.0) L 07/06/21 16:07 MCV 104.5 fl (80-94) H 07/06/21 16:07 MCH 36.1 pg (28.0-34.0) H 07/06/21 16:07 MCHC 34.6 g/dL (30.0-36.0) 07/06/21 16:07 RDW 12.6 % (12.1-15.1) 07/06/21 16:07 Plt Count 308 10^3/cmm (130-400) 07/06/21 16:07 MPV 10.9 fL (7.4-10.4) H 07/06/21 16:07 Neut % (Auto) 82.3 % 07/06/21 16:07 Lymph % (Auto) 4.5 % 07/06/21 16:07 Glascock % (Auto) 7.9 % 07/06/21 16:07 Eos % (Auto) 0.0 % 07/06/21 16:07 Baso % (Auto) 0.4 % 07/06/21 16:07 Neut # (Auto) 18.90 10^3/uL (1.8-7.7) H 07/06/21 16:07 Lymph # (Auto) 1.0 10^3/uL (0.8-4.8) 07/06/21 16:07 Glascock # (Auto) 1.8 10^3/uL (0.2-0.9) H 07/06/21 16:07 Eos # (Auto) 0.0 10^3/uL (0.0-0.8) 07/06/21 16:07 Baso # (Auto) 0.1 10^3/uL (0.0-0.1) 07/06/21 16:07 Nucleated RBC % (auto) 0 % 07/06/21 16:07 Nucleated RBCs # 0.0 /100WBC 07/06/21 16:07 Sodium 131 mmol/L (136-145) L 07/06/21 16:07 Potassium 5.0 mmol/L (3.5-5.1) 07/06/21 16:07 Chloride 97 mmol/L (98-107) L 07/06/21 16:07 Carbon Dioxide 21 mmol/L (22-29) L 07/06/21 16:07 Anion Gap 18.0 (5-19) 07/06/21 16:07 BUN 16 mg/dL (6-20) 07/06/21 16:07 Creatinine 0.6 mg/dL (0.7-1.2) L 07/06/21 16:07 GFR Calculation 142.0 mL/min (90-130) H 07/06/21 16:07 Glucose 193 mg/dL (65-115) H 07/06/21 16:07 POC Glucose 194 mg/dL (70-110) H 07/07/21 13:28 Estimat Average Glucose 120 07/05/21 02:49 Hemoglobin A1c 5.8 % (4.0-6.0) 07/05/21 02:49 Calculated Osmolality 278 mOsm/kg (285-295) L 07/06/21 16:07 Calcium 8.7 mg/dL (8.5-10.5) 07/06/21 16:07 Total Bilirubin 1.4 mg/dL (0.15-1.2) H 07/06/21 16:07 AST 47 U/L (0-40) H 07/06/21 16:07 ALT 43 U/L (0-41) H 07/06/21 16:07 Alkaline Phosphatase 159 IU/L (40-130) H 07/06/21 16:07 Total Protein 6.4 g/dL (6.6-8.7) L 07/06/21 16:07 Albumin 3.0 g/dL (3.5-5.2) L 07/06/21 16:07 Globulin 3.4 g/dL (1.3-4.6) 07/06/21 16:07 Triglycerides 84 mg/dL (0-150) 07/05/21 02:49 Cholesterol 125 mg/dL (0-200) 07/05/21 02:49 LDL Cholesterol, Calc 78 mg/dL (50-129) 07/05/21 02:49 Total VLDL Cholesterol 17 mg/dL (0-30) 07/05/21 02:49 HDL Cholesterol 30 mg/dL (60-100) L 07/05/21 02:49 Cholesterol/HDL Ratio 4.17 mg/dL (1.0-5.00) 07/05/21 02:49 TSH 1.49 uIU/mL (0.27-4.20) 07/04/21 20:20 Blood Type O Positive 07/04/21 11:38 Rho(D) Type Positive 07/04/21 11:38 Antibody Screen Negative 07/04/21 11:38 Crossmatch See Detail 07/04/21 11:38 Vitals Last Vital Signs Temp 98 F 07/07/21 14:41 Pulse 99 07/07/21 14:41 Resp 13 07/07/21 14:41 BP 140/84 07/07/21 14:41 Pulse Ox 88 L 07/07/21 14:41 Discharge Plan Discharge Patient Disposition: Home Condition: Stable Prescriptions: New oxycodone 5 mg tablet 5 - 10 mg PO Q4H PRN (Reason: pain) 7 Days Qty: 60 0RF Continued metformin 500 mg tablet extended release 24 hr 500 mg PO DAILY@12 0RF omeprazole-sodium bicarbonate [Zegerid OTC] 20-1.1 mg-gram Capsule 1 cap PO DAILY 0RF Trulicity 1.5 mg/0.5 mL pen injector 1.5 mg SUBCUT Q7D 0RF Rx Instructions: on Friday sennosides-docusate sodium [Stool Softener-Laxative] 8.6-50 mg Tablet 1 tab PO BID Qty: 60 0RF trazodone 100 mg Tablet 100 mg PO BEDTIME PRN (Reason: Insomnia) Qty: 20 0RF Narcan 4 mg/actuation spray,non-aerosol 4 mg intranasal Q2M PRN (Reason: opioid overdose) Qty: 2 0RF Rx Instructions: spray 1 dose into ONE nostril; alternate nostrils w each dose until help arrives lorazepam [Ativan] 0.5 mg tablet 1 mg PO QID PRN (Reason: anxiety) 0RF fentanyl 25 mcg/hr patch 72 hour 50 mcg transdermal Q72H 0RF duloxetine 30 mg capsule,delayed release(DR/EC) 60 mg PO DAILY 0RF dexamethasone 4 mg Tablet 4 mg PO DAILY 0RF morphine concentrate 100 mg/5 mL (20 mg/mL) solution 20 - 40 mg PO Q2H MDD see pharmacy comment PRN (Reason: Pain) 0RF metoclopramide HCl 10 mg Tablet 10 mg PO Q6H PRN (Reason: Nausea) 0RF oxycodone 5 mg Tablet 5 - 15 mg PO BID MDD see pharmacy comment PRN (Reason: Pain) 0RF Discharge Orders: Discharge Order (Routine); Ordered 07/06/21 Ordered By: Andrew Quevedo Other Ambulatory Orders: DME: Hospital Bed (Order) Location: None Selected Ordered By: Andrew Quevedo DME: Walker (Order) Location: None Selected Ordered By: Andrew Quevedo Referrals: Andrew Quevedo, DO [Physician] - 4-7 days (THIS FOLLOW UP APPOINTMENT HAS BEEN CONFIRMED.THIS ,DATE OF AT 1:45 PM . [facility] Discharge Diet: Advance as tolerated Discharge Activity: Limit activity as instructed Patient Instructions: Oxycodone, Slow Release (By mouth) (Oxycontin, Xtampza ER), Kyphoplasty (DC), Lumbar Spinal Fusion (DC), Opioid Safety Activity Restrictions/Additional Instructions: Thank you for [facility] for your care! The following is a list of instructions, from your provider, to follow upon your discharge to ensure you have the optimal recovery from your recent injury orsurgery. Follow-up care is a rodríguez part of your treatment and safety. Be sure to make and go to all appointments, and call your doctor if you are having problems. If you do not already have a follow-up appointment made, call Dr. Quevedo office in the next 1-3 days to make follow up appointment for 1 (this 06/11/21) weeks at [phone]. It is also a good idea to know your test results and keep a list of the medicines you take. Medications will be prescribed for you at your provider's discretion. These medications are to be used as instructed; if they are taken more often that prescribed they will not be refilled early and in most cases will not be refilled at all. > When a refill is needed,you should contact natalia case 2-3 business days before your prescription runs out. Medications will NOT be refilled by pharmacy consultant providers after hours! > Many pain medications contain Tylenol (Acetaminophen). Do not consume more than 4,000 mg of Tylenol per day in total with any combination ofmedications. > Pain medications can cause constipation. Please use an over the counter stool softener as directed, while taking pain medications. Consulty our local pharmacist with questions or recommendations on stool softeners. If constipation persists, contact our office or your primary care provider. > While under our care,you are not to receive pain medications or other controlled substances from any other provider unless our office is notified and approves. Any attempts to do so will result in refusal to prescribe any further pain medications and possible dismissal from our practice. ? ? Walking is essential for the healing process after surgery. We would like you to slowly advance your walking. This should be done on relatively flat clear ground (inside or out) or can be done on a treadmill. Remember this goal does not have to happen all at once, slowly increase your distance and duration. This can be broken into more more than one walk per day as tolerated. Patients who walk as directed after surgery rarely require Physical Therapy. In the unlikely event this issue arises your provider will direct hospital staff to make the appropriate arrangements. ? No lifting over 5 pounds {a gallon of milk) or bending/twisting until further notice. Each of these activities places an unnecessary amount of stress onto the body and can impede the delicate healing process. > Instead of bending at the waist, keep your back straight and bend at the knees. > Instead of twisting your torso, keep your back straight and turn your entire body with your feet. ? You may sleep in any position which makes you comfortable. Many patients find comfort sleeping in a reclining chair. It is not abnormal to have difficulty sleeping for the first several weeks following your surgery. We r ecommend trying Benadry! or Tylenol PM as directed to help with your sleeping difficulties. Both medications are over the counter and available withoutprescription. ? NO SMOKING!!! Smoking dramatically increases the probability of developing postoperative wound infections. ? Common complaints after lumbar and/or thoracic spine surgery include, but are not limited to: numbness and/or tingling in the legs, pain around the incision and surrounding tissues, muscle spasms, or stiffness of the middle to low back. Contact our office if these symptoms persist or if an acute change occurs. ? No driving for the first 3-5days, and not while taking narcotics [] until seen at your follow-up appointment and cleared. There are no restrictions for riding on short trips, however if you take a longer trip, arrangements should be made to make regular stops to get out of the vehicle and stretch . ? Swelling is an unfortunate event that will take place with any surgery and is the primary source of your postoperative discomfort. While walking and regular approved activities helps control inflammation, there are additional steps you can take to minimizeswelling. > Place ice over the surgical site and surrounding tissue for twenty minutes, followed by applying a low/medium heat (heating pad) for an additional twenty minutes every 1-2 hours as needed for painrelief. > You may use of over the counter anti-inflammatory medications (Ibuprofen, Motrin, Aleve, Advil, etc) as directed on the package label. These types of medicines wm significantly reduce the amount of discomfort you experience after surgery from swelling. It should be noted that if you have and allergy to any of these medications, or a history of ulcers or kidney disease you should consult you primary care provider prior to starting these medications. Discharge Attestations Time Spent in Discharge Care*: less than 30 min Quality Metrics Clinical Quality Measures [ No reported AMI, CVA or VTE this stay] Coding Level of Care Code Acute g [facility] note Diagnoses Encounter for postoperative care Z48.89
== END 2021-07-07 15:09 | disposition home or self-care (01) | DRG 458 ==
LOC: ICU 18:02
PROVIDERS: Student in an Organized Health Care Education/Training Program; Admitting Provider Orthopaedic Surgery; PCP Family Medicine; Visit Provider Orthopaedic Surgery
PROC: 0P543ZZ Destruction of Thoracic Vertebra, Percutaneous Approach (ICD-10-PCS; CPT 22612; principal; 2021-07-04 11:55)
PROC: 0P543ZZ Destruction of Thoracic Vertebra, Percutaneous Approach (ICD-10-PCS; 2021-07-04 11:55)
DX: C79.51 Secondary malignant neoplasm of bone (principal); C80.1 Malignant (primary) neoplasm, unspecified; E11.9 Type 2 diabetes mellitus without complications; Z86.16 Personal history of COVID-19; F41.9 Anxiety disorder, unspecified; F32.A Depression, unspecified; K21.9 Gastro-esophageal reflux disease without esophagitis; M10.9 Gout, unspecified; D50.9 Iron deficiency anemia, unspecified; Z79.891 Long term (current) use of opiate analgesic; Z79.899 Other long term (current) drug therapy; Z79.84 Long term (current) use of oral hypoglycemic drugs
CPT/HCPCS: 36410; 36415; 36416; 36620; 51702; 71045; 74018; 76000; 76942; 80053; 80061; 82962; 83036; 84443; 85014; 85018; 85025; 86850; 86900; 86920; 88307; 88311; 96372; 97116; 97163; 97530; C1713; J0330; J0690; J1170; J1650; J1815; J1885; J2405; J2704; J3010; J3370; J3490; J7030; J8540; J8597

== ENCOUNTER 2021-07-25 08:58 | Day surgery (SDC) | payer OTHER, SELFPAY ==
[2021-07-25 09:29] VITALS: BP 95/72; PULSE 76; RESP 18; TEMP 36.8; O2SAT 96
[2021-07-25] MEDS: sodium chloride 0.9% 1,000 ML 30 ML IV (09:30)
--- NOTE | 2021-07-25 09:58 | W.PM.OPSFHP ---
Same Day Surgery H&P Indication for Procedure/HPI DATE OF PROCEDURE: July 25, 2021 CHIEF COMPLAINT/INDICATIONFOR SURGICAL PROCEDURE: screening PREOP DIAGNOSIS: upper gi symptoms PLANNED PROCEDURE: Operation Date: 07/25/21 10:30 Proposed Procedures p [id number]/Gerd K21.9(Not Applicable) - Mckay Salmeron MD Medications/Allergies* Home Medications Medication Instructions Recorded Confirmed Type dulaglutide 1.5 mg/0.5 mL 1.5 mg SUBCUT Q7D 06/27/21 07/25/21 History subcutaneous pen injector (Trulicity) metformin 500 mg tablet,extended 500 mg PO DAILY@12 06/27/21 07/25/21 History release 24 hr omeprazole 20 mg-sodium 1 cap PO DAILY 06/27/21 07/25/21 History bicarbonate 1.1 gram capsule (Zegerid OTC) duloxetine 30 mg capsule,delayed 60 mg PO DAILY 07/03/21 07/25/21 History release fentanyl 25 mcg/hr transdermal 50 mcg TRANSDERMAL Q72H 07/03/21 07/25/21 History patch lorazepam 0.5 mg tablet (Ativan) 1 mg PO QID PRN 07/03/21 07/25/21 History dexamethasone 4 mg tablet 4 mg PO DAILY 07/05/21 07/25/21 History metoclopramide HCl 10 mg tablet 10 mg PO Q6H PRN 07/05/21 07/25/21 History morphine concentrate 100 mg/5 mL 20 - 40 mg PO Q2H PRN MDD see 07/05/21 07/25/21 History (20 mg/mL) oral solution pharmacy comment oxycodone 5 mg tablet 5 - 15 mg PO BID PRN MDD see 07/05/21 07/25/21 History pharmacy comment Allergies/Adverse Reactions Allergy/AdvReac Type Severity Reaction Status Date / Time No Known Allergies Allergy Verified 07/24/21 10:46 Current Medications: Generic Name Dose Route Start Last Admin Trade Name Freq PRN Reason Stop Dose Admin Sodium Chloride 1,000 mls @ 30 mls/hr 07/25/21 09:15 07/25/21 09:30 Sodium Chloride 0.9% IV 07/26/21 09:14 30 mls/hr .Q24H ARIEL Administration Pertinent History/Comorbid Conditions* Medical History (Updated 07/24/21 @ 11:09 by Mckay Salmeron MD) Anxiety Cervical spine fracture COVID-19 Diabetes mellitus GERD (gastroesophageal reflux disease) Gout Macrocytosis Multiple lesions of metastatic malignancy Pathologic cervical vertebral fracture Surgical History (Updated 07/04/21 @ 17:08 by Kalin Iniguez MD) H/O cervical discectomy Spinal surgery in prior 3 months Family History (Updated 06/27/21 @ 10:58 by Darell De Anda MD) Diabetes CAD (coronary artery disease) Cancer Social History Smoking and tobacco status: never smoked Alcohol intake: current Pertinent Exam Findings alert, oriented x 3 and regular rate & rhythm Recommendations Surgery/Procedure today Coding Level of Care Code Acute Heat Treat Inspector for Chg Babita
--- NOTE | 2021-07-25 10:04 | P.ANESASSM_ITS ---
Pre-Anesthetic Assessment Height/Weight: Height 1.78 m Weight 116.573 kg Temp Pulse Resp BP Pulse Ox 98.2 F 76 18 95/72 96 07/25/21 09:29 07/25/21 09:29 07/25/21 09:29 07/25/21 09:29 07/25/21 09:29 Preop Diagnosis: upper gi symptoms Operation Date: 07/25/21 10:30 Proposed Procedures p [id number]/Gerd K21.9(Not Applicable) - Mckay Salmeron MD Familial anesthetic complications: none Last intake: Intake Last Liquid Date 07/24/21 Last Liquid Time 23:00 Last Solid Date 07/24/21 Last Solid Time 19:00 Social Alcohol (1-2 beer per day) and Tobacco (chewing tobacco at 5 am patient states he spits and removed it 0600) Airway Cervical ROM: Other (recent cervical surgery.) Mallampati: Class III Dentition: full Pulmonary None reported CV/HEM None reported None reported Hepatic Cancer GI Gastroesophageal Reflux Disease Metabolic Diabetes Mellitus and Morbid Obesity [facility] Lower Back Pain and Weakness Neuropsych Anxiety and Depression Anesthetic Plan ASA status: 4 Anesthesia: MAC Medications/Allergies Home Medications Medication Instructions Recorded Confirmed Last Taken Type dulaglutide 1.5 mg/0.5 mL 1.5 mg SUBCUT Q7D 06/27/21 07/25/21 07/23/21 History subcutaneous pen injector (Trulicity) metformin 500 mg tablet,extended 500 mg PO DAILY@12 06/27/21 07/25/21 07/24/21 History release 24 hr omeprazole 20 mg-sodium 1 cap PO DAILY 06/27/21 07/25/21 07/24/21 History bicarbonate 1.1 gram capsule (Zegerid OTC) naloxone 4 mg/actuation nasal 4 mg INTRANASAL Q2M PRN #2 ea 06/29/21 07/25/21 Unknown Rx spray (Narcan) sennosides 8.6 mg-docusate sodium 1 tab PO BID #60 tab 06/29/21 07/25/21 07/24/21 Rx 50 mg tablet (Stool Softener-Laxative) trazodone 100 mg tablet 100 mg PO BEDTIME PRN #20 tab 06/29/21 07/25/21 07/24/21 Rx duloxetine 30 mg capsule,delayed 60 mg PO DAILY 07/03/21 07/25/21 07/24/21 History release fentanyl 25 mcg/hr transdermal 50 mcg TRANSDERMAL Q72H 07/03/21 07/25/21 07/24/21 History patch lorazepam 0.5 mg tablet (Ativan) 1 mg PO QID PRN 07/03/21 07/25/21 07/25/21 History dexamethasone 4 mg tablet 4 mg PO DAILY 07/05/21 07/25/21 07/24/21 History metoclopramide HCl 10 mg tablet 10 mg PO Q6H PRN 07/05/21 07/25/21 07/24/21 History morphine concentrate 100 mg/5 mL 20 - 40 mg PO Q2H PRN MDD see 07/05/21 07/25/21 07/25/21 History (20 mg/mL) oral solution pharmacy comment oxycodone 5 mg tablet 5 - 15 mg PO BID PRN MDD see 07/05/21 07/25/21 07/24/21 History pharmacy comment Allergies Allergy/AdvReac Type Severity Reaction Status Date / Time No Known Allergies Allergy Verified 07/24/21 10:46 Current Medications Generic Name Dose Route Start Last Admin Trade Name Freq PRN Reason Stop Dose Admin Sodium Chloride 1,000 mls @ 30 mls/hr 07/25/21 09:15 07/25/21 09:30 Sodium Chloride 0.9% IV 07/26/21 09:14 30 mls/hr .Q24H ARIEL Administration PFSH Anesthesia Medical History Anxiety Cervical spine fracture COVID-19 Diabetes mellitus GERD (gastroesophageal reflux disease) Gout Macrocytosis Multiple lesions of metastatic malignancy Pathologic cervical vertebral fracture Surgical History H/O cervical discectomy Spinal surgery in prior 3 months Family History Other CAD (coronary artery disease) Cancer Diabetes Social History Smoking and tobacco status: never smoked Alcohol intake: current Data Anesthesia Cardiac Studies: No Data to Display
[2021-07-25 10:26] VITALS: BP 107/68; PULSE 70; RESP 14; TEMP 36.6; O2SAT 97
[2021-07-25 10:40] VITALS: BP 105/69; PULSE 71; RESP 18; O2SAT 96
--- NOTE | 2021-07-25 16:22 | ANE.PACU2 ---
Inpatient post-anesthesia follow up: Airway intact: Yes Vital signs: Temperature 97.8 F Pulse Rate 71 Respiratory Rate 18 Blood Pressure 105/69 Pulse Oximetry 96 Oxygen Delivery Me thod Room Air Oxygen Flow Rate 5 Fraction of Inspir ed Oxygen Hydration adequate: Yes Nausea and vomiting: No Pain level: 1 Mental status: Baseline
== END 2021-07-25 10:58 | disposition home or self-care (01) ==
PROVIDERS: PCP Family Medicine; Visit Provider Surgery
PROC: 0DJ08ZZ Inspection of Upper Intestinal Tract, Via Natural or Artificial Opening Endoscopic (ICD-10-PCS; CPT 43235; principal; 2021-07-25 10:30)
DX: K21.9 Gastro-esophageal reflux disease without esophagitis (principal); I85.00 Esophageal varices without bleeding; F17.220 Nicotine dependence, chewing tobacco, uncomplicated; E11.9 Type 2 diabetes mellitus without complications; E66.01 Morbid (severe) obesity due to excess calories; Z68.36 Body mass index [BMI] 36.0-36.9, adult; F41.9 Anxiety disorder, unspecified; Z86.16 Personal history of COVID-19; Z82.49 Family history of ischemic heart disease and other diseases of the circulatory system
CPT/HCPCS: 43235; J2704; J7030

== ENCOUNTER 2021-08-06 07:06 | Outpatient (RCR) | payer OTHER, SELFPAY ==
--- NOTE | 2021-07-18 | CT_ITS ---
Radiation Therapy Planning CT images; total exam DLP: 607.78 mGy-cm MTDD
--- NOTE | 2021-07-18 09:46 | N.ONRAD NP_ITS ---
Radiation Oncology Consultation Patient Name: Michael Ravi Date of : 1970 Date of Service: 07/18/2021 Attending Physician: Asael Johnson M.D. Michael Ravi was seen in consultation this morning at the request of Abdias Chandler M.D. for consideration of palliative radiotherapy for the management of a recently diagnosed hepatocellular carcinoma with skeletal metastases. He was evaluated at the [facility]'s Emergency Department on June 27, 2021 for an enlarging right sided head mass and neck pain. A CT scan of the cervical spine identified a pathologic compression fracture of the C4 vertebral body and a 4 cm x 4.4 cm right parietotemporal calvarial lesion. A head CT scan (imaging was personally reviewed in [facility]) confirmed a large enhancing destructive mass within the right parietal bone measuring 4.6 cm x 4 cm x 4.4 cm extending through the dura and multiple lytic lesions throughout the skull. A thoracoabdominopelvic CT scan demonstrated a destructive lesion involving the fourth rib measuring 5.5 cm x 3.9 cm, several skeletal metastases (T4, T10, T11, bilateral pubic rami, bilateral matt,), a soft tissue mass measuring 5.2 cm x 4.9 cm involving the inferior border of the right scapula, and an area of low-attenuation in the left lobe of the liver measuring 3.8 cm x 2.3 cm. The liver was nodular suggesting cirrhosis. The patient was admitted and an anterior discectomy of C3/4 with corpectomy with an insertion of a corpectomy cage was performed on June 28, 2021 by Darell De Anda M.D. Curettings obtained diagnosed a metastatic hepatocellular carcinoma. The initial AFP was 2204 ng/mL. On July 04, 2021, Andrew Quevedo M.D. performed a T4 kyphoplasty with radiofrequency ablation and radiofrequency ablation of T10. The patient was evaluated for palliative radiotherapy to the right parietal mass. I discussed with Mr. Ravi the role for palliative radiotherapy. I would recommend a 2-week course of radiation therapy. A CT scan will be acquired for radiotherapy planning to delineate the gross tumor volume prior to beginning treatment. The potential toxicities of cranial radiotherapy were reviewed. The patient has verbalized understanding would like to proceed as recommended. His medical treatment was discussed with Abdias Chandler M.D. Signed by: Dr. Asael Johnson 07/18/2021 9:44:54 AM
[2021-07-18 10:34] LABS: Basophils % 0.2 %; Eosinophils # 0.1 10^3/uL (0.0-0.8); Eosinophils % 1.8 %; Hematocrit 28.6 % (42.0-52.0); Hemoglobin 9.4 g/dL (11.7-16.6); Lymphocytes # 0.9 10^3/uL (0.8-4.8); Lymphocytes % 16.8 %; Mean Corpuscular HGB Conc 32.9 g/dL (30.0-36.0); Mean Corpuscular Hemoglobin 34.8 pg (28.0-34.0); Mean Corpuscular Volume 105.9 fl (80-94); Monocytes # 0.6 10^3/uL (0.2-0.9); Monocytes % 10.6 %; Neutrophils # 3.79 10^3/uL (1.8-7.7); Neutrophils % 69.5 %; Nucleated Red Blood Cells % 0 %; Platelet Count 127 10^3/cmm (130-400); Red Cell Distribution Width 13.3 % (12.1-15.1); White Blood Count 5.5 10^3/uL (4.0-10.0)
[2021-07-18 11:04] LABS: Alanine Aminotransferase 67 U/L (0-41); Albumin Level 3.2 g/dL (3.5-5.2); Alkaline Phosphatase 238 IU/L (40-130); Anion Gap 13.1 (5-19); Aspartate Amino Transferase 71 U/L (0-40); Blood Urea Nitrogen 14 mg/dL (6-20); Calcium 9.1 mg/dL (8.5-10.5); Carbon Dioxide 23 mmol/L (22-29); Chloride 101 mmol/L (98-107); Globulin 3.1 g/dL (1.3-4.6); Glucose 108 mg/dL (65-115); Osmolality Calculated 277 mOsm/kg (285-295); Potassium 4.1 mmol/L (3.5-5.1); Sodium 133 mmol/L (136-145); Total Bilirubin 0.7 mg/dL (0.15-1.2); Total Protein 6.3 g/dL (6.6-8.7)
--- NOTE | 2021-07-23 11:53 | ONCRAD TMN_ITS ---
Radiation Oncology Treatment Management Note Patient Name: Michael Ravi Date of : 1970 Date of Service: 07/23/2021 Attending Physician: Asael Johnson M.D. Michael Ravi is a 50 year-old white male who was recently diagnosed with metastatic hepatocellular carcinoma. He was evaluated at the [facility]'s Emergency Department on June 27, 2021 for an enlarging right sided head mass and neck pain. A CT scan of the cervical spine identified a pathologic compression fracture of the C4 vertebral body and a 4 cm x 4.4 cm right parietotemporal calvarial lesion. A head CT scan confirmed a large enhancing destructive mass within the right parietal bone measuring 4.6 cm x 4 cm x 4.4 cm extending through the dura and multiple lytic lesions throughout the skull. A thoracoabdominopelvic CT scan demonstrated a destructive lesion involving the fourth rib measuring 5.5 cm x 3.9 cm, several skeletal metastases (T4, T10, T11, bilateral pubic rami, bilateral matt,), a soft tissue mass measuring 5.2 cm x 4.9 cm involving the inferior border of the right scapula, and an area of low-attenuation in the left lobe of the liver measuring 3.8 cm x 2.3 cm. The liver was nodular suggesting cirrhosis. The patient was admitted and an anterior discectomy of C3/4 with corpectomy with an insertion of a corpectomy cage was performed on June 28, 2021 by Darell De Anda M.D. Curettings obtained diagnosed a metastatic hepatocellular carcinoma. The initial AFP was 2204 ng/mL. On July 04, 2021, Andrew Quevedo M.D. performed a T4 kyphoplasty with radiofrequency ablation and radiofrequency ablation of T10. The patient has received 9 Gy of a prescribed 30 Capone to the right calvarium with a 3-dimensional conformal radiotherapy plan utilizing a lateral treatment field and a daily 0.5 cm tissue insurance executive. Upon review of systems, he reported occasional headaches. On physical examination, the patient weighed 258 lbs. His temperature was 97.9 ???F with a blood pressure of 123/72 mmHg. His pulse was 95 bpm and his respiratory rate was 20. Continue palliative radiotherapy as prescribed. Signed by: Dr. Asael Johnson 07/23/2021 11:52:07 AM
--- NOTE | 2021-07-27 12:05 | XR_ITS ---
WS: [id number] CERVICAL SPINE TECHNIQUE: 3 views of the cervical spine CLINICAL INFORMATION: BONE METS/PAIN IN NECK L SHOULDER COMPARISON: None. FINDINGS: Straightening of the normal cervical lordosis. Normal C1-C2 articulation. Postoperative changes ACDF C3-C5 with C4 corpectomy. Interbody fusion graft with slight anterior angu lation. Partially visualized vertebroplasty changes in the upper thoracic spine. XR/XR cervical spine 3V* [id number] IMPRESSION: 1. Recent postoperative changes ACDF C3-C5 with C4 corpectomy. 2. Corpectomy C4 with interbody fusion graft. 3. Slight anterior angulation of the interbody graft appears slightly increase d compared to the intraoperative films June 28, 2021. Some this may be due t o positioning.
--- NOTE | 2021-07-27 12:05 | XR_ITS ---
WS: [id number] LEFT CLAVICLE TECHNIQUE: 2 views of the left clavicle. CLINICAL INFORMATION: BONE METS/PAIN IN NECK L SHOULDER COMPARISON: None. FINDINGS: Normal AC joint. Cortical irregularity LEFT proximal clavicle difficult to visualize due to overlappi ng ribs suspicious for minimally displaced clavicular fracture. This can be further evaluated with CT . XR/[place] [id number] IMPRESSION: Cortical irregularity LEFT proximal clavicle difficult to visualize due to over lapping ribs suspicious for minimally displaced clavicular fracture. This can b e further evaluated with CT.
--- NOTE | 2021-07-27 12:05 | XR_ITS ---
WS: [id number] SHOULDER LEFT TECHNIQUE: 3 views of the left shoulder CLINICAL INFORMATION: BONE METS/PAIN IN NECK LEFT SHOULDER COMPARISON: None. FINDINGS: Normal acromioclavicular joint. Suspected nondisplaced fracture LEFT proximal clavicle with cortical irregularity. This can be further evaluated with CT. Normal LEFT glenohumeral joint and proximal jericho ken. Partially visualized vertebroplasty changes and hardware in the thoracic spine. Pleural based lesion with destruction of the LEFT lateral 4th rib similar to the prior CT XR/XR shoulder LT min 2V* [id number] IMPRESSION: 1. Irregularity with some lucency LEFT proximal clavicle. This is better visua lized on the clavicle study. 2. Recommend further evaluation with CT. 3. Destructive pleural-based lesion involving the LEFT upper lateral lung with destruction of the 4th rib similar to the prior CT June 27, 2021
--- NOTE | 2021-07-30 12:01 | ONCRAD TMN_ITS ---
Radiation Oncology Treatment Management Note Patient Name: Michael Ravi Date of : 1970 Date of Service: 07/30/2021 Attending Physician: Asael Johnson M.D. Michael Ravi is a 50 year-old white male who was recently diagnosed with metastatic hepatocellular carcinoma. He was evaluated at the [facility]'s Emergency Department on June 27, 2021 for an enlarging right sided head mass and neck pain. A CT scan of the cervical spine identified a pathologic compression fracture of the C4 vertebral body and a 4 cm x 4.4 cm right parietotemporal calvarial lesion. A head CT scan confirmed a large enhancing destructive mass within the right parietal bone measuring 4.6 cm x 4 cm x 4.4 cm extending through the dura and multiple lytic lesions throughout the skull. A thoracoabdominopelvic CT scan demonstrated a destructive lesion involving the fourth rib measuring 5.5 cm x 3.9 cm, several skeletal metastases (T4, T10, T11, bilateral pubic rami, bilateral matt,), a soft tissue mass measuring 5.2 cm x 4.9 cm involving the inferior border of the right scapula, and an area of low-attenuation in the left lobe of the liver measuring 3.8 cm x 2.3 cm. The liver was nodular suggesting cirrhosis. The patient was admitted and an anterior discectomy of C3/4 with corpectomy with an insertion of a corpectomy cage was performed on June 28, 2021 by Darell De Anda M.D. Curettings obtained diagnosed a metastatic hepatocellular carcinoma. The initial AFP was 2204 ng/mL. On July 04, 2021, Andrew Quevedo M.D. performed a T4 kyphoplasty with radiofrequency ablation and radiofrequency ablation of T10. 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 Upon review of systems, he reported left hip pain. On physical examination, the patient weighed 258 lbs. His temperature was 97.2 ???F and the blood pressure was 114/70 mmHg. His pulse was 87 bpm and his respiratory rate was 20. Continue palliative radiotherapy as planned. Signed by: Dr. Asael Johnson 07/30/2021 11:59:11 AM
--- NOTE | 2021-08-01 11:15 | N.ONRD TS_ITS ---
Radiation OncologyTreatment Summary Patient Name: Michael Ravi Date of : 1970 Date of Service: 08/01/2021 Attending Physician: Asael Johnson M.D. Michael Ravi has completed palliative radiotherapy for the management of metastatic hepatocellular carcinoma. He was evaluated at the [facility]'s Emergency Department on June 27, 2021 for an enlarging right sided head mass and neck pain. A CT scan of the cervical spine identified a pathologic compression fracture of the C4 vertebral body and a 4 cm x 4.4 cm right parietotemporal calvarial lesion. A head CT scan confirmed a large enhancing destructive mass within the right parietal bone measuring 4.6 cm x 4 cm x 4.4 cm extending through the dura and multiple lytic lesions throughout the skull. A thoracoabdominopelvic CT scan demonstrated a destructive lesion involving the fourth rib measuring 5.5 cm x 3.9 cm, several skeletal metastases (T4, T10, T11, bilateral pubic rami, bilateral matt,), a soft tissue mass measuring 5.2 cm x 4.9 cm involving the inferior border of the right scapula, and an area of low-attenuation in the left lobe of the liver measuring 3.8 cm x 2.3 cm. The liver was nodular suggesting cirrhosis. The patient was admitted and an anterior discectomy of C3/4 with corpectomy with an insertion of a corpectomy cage was performed on June 28, 2021 by Darell De Anda M.D. Curettings obtained diagnosed a metastatic hepatocellular carcinoma. The initial AFP was 2204 ng/mL. On July 04, 2021, Andrew Quevedo M.D. performed a T4 kyphoplasty with radiofrequency ablation and radiofrequency ablation of T10. Daily radiotherapy was administered between the dates of August 30, 2020 through September 12, 2020. A prescribed dose of 30 Gy was delivered in 10 fractions encompassing 14 elapsed days. The destructive right parietal calvarial mass was treated utilizing a 3-dimensional conformal radiotherapy plan with a lateral field design. The lateral field utilized a 270??? gantry angle with a collimator angle of 90???. The field size measured 4.1 cm x 4.5 cm within the X-direction and 5.2 cm x 5.2 cm within the Y-direction. The SSD measured 97.8 cm with the field delivering 340 monitor units. All treatments were performed with the Upstart linear accelerator and an isocentric technique. The dose was calculated by Anisotropic Analytic Algorithm. Photon energies of 6 MV were prescribed with the plan normalized to deliver 100% of the prescription dose to 100% of the planning target volume. Signed by: Dr. Asael Johnson 08/01/2021 11:13:00 AM
[2021-08-06 09:15] LABS: Hematocrit 32.1 % (42.0-52.0); Hemoglobin 10.3 g/dL (11.7-16.6); Mean Corpuscular HGB Conc 32.1 g/dL (30.0-36.0); Mean Corpuscular Hemoglobin 32.7 pg (28.0-34.0); Mean Corpuscular Volume 101.9 fl (80-94); Mean Platelet Volume 10.7 fL (7.4-10.4); Platelet Count 125 10^3/cmm (130-400); Red Blood Count 3.15 10^6/uL (4.1-5.3); Red Cell Distribution Width 13.2 % (12.1-15.1); White Blood Count 5.4 10^3/uL (4.0-10.0)
[2021-08-06 09:31] LABS: Slide Review Slide Review Perform
[2021-08-06 09:35] LABS: Absolute Eosinophils 0.1 10^3/cmm (0.0-0.7); Absolute Segmented Neutrophil 3.7 10/cmm (1.6-7.1); Band Neutrophils Absolute 0.3 10^3/cmm (0.0-1.2); Eosinophils 2 %; Lymphocytes 12 %; Lymphocytes Absolute 0.6 10^3/cmm (1.2-3.4); Monocytes Absolute 0.3 10^3/cmm (0.1-0.6); Segmented Neutrophils 69 %; Total Cells Counted 100 (0-100)
[2021-08-06 09:36] LABS: Anisocytosis 1+; Smudge Cells Trace
[2021-08-06 09:37] LABS: Absolute Neutrophil 4.1 10^3/cmm (1.4-6.5); Platelet Estimate Normal (Normal)
[2021-08-06 09:39] LABS: Alanine Aminotransferase 77 U/L (0-41); Albumin Level 3.2 g/dL (3.5-5.2); Alkaline Phosphatase 223 IU/L (40-130); Aspartate Amino Transferase 87 U/L (0-40); Blood Urea Nitrogen 20 mg/dL (6-20); Calcium 9.1 mg/dL (8.5-10.5); Carbon Dioxide 24 mmol/L (22-29); Chloride 102 mmol/L (98-107); Globulin 3.4 g/dL (1.3-4.6); Glomerular Filtration Rate 118.4 mL/min (90-130); Glucose 144 mg/dL (65-115); Iron 40 ug/dL (59-158); Osmolality Calculated 287 mOsm/kg (285-295); Percent Saturation 18.6 % (20-50); Sodium 136 mmol/L (136-145); Total Bilirubin 0.5 mg/dL (0.15-1.2); Total Iron Binding Capacity 214 mcg/dl; Total Protein 6.6 g/dL (6.6-8.7); Unsaturated Iron Binding 174 ug/dL (112-347)
[2021-08-06 09:55] LABS: Vitamin B12 1779 pg/mL (232-1245)
--- NOTE | 2021-08-06 18:13 | ONC FU_ITS ---
Dr. Chandler Patient Follow-Up Note Patient: Michael Ravi Unit #: [id number]: 1970 Dicatated By: Abdias Chandlre M.D.Date of Visit:Aug 06, 2021 Onc Med Follow-up/Prog Note Chief Complaint: Hepatocellular cancer. History of Present Illness: This is a 51 year-old man with hepatocellular carcinoma, stage IV, with biopsy-proven metastatic bone involvement. In January 2021 he was seen in the emergency room with cough, fever, and weakness, and he was confirmed to have COVID-19 virus infection. He was given the monoclonal antibody infusion. He had prolonged recovery, and he had bad headaches which persisted for least several months. He then began having more gradual onset of neck and shoulder pain. X-rays of the cervical spine on May 09, 2021 showed lucency throughout the C4 vertebral body with anterior wedging which were new findings since April 2017. His pain continued to worsen, and he was seen in the emergency room again on June 27, 2021. By that time he had developed a knot on the right side of his head. His head CT showed a large expansile destructive metastatic skull lesion centered in the right parietal bone measuring 4.0 x 4.4 cm and extending over a length of 4.6 cm. The mass was noted to extend into the dura and there was associated dural enhancement and displacement. There was a small amount of cerebral edema surrounding it. Cervical spine CT showed severe pathologic compression fracture at C4 with an L irregular lucent lesion, most likely metastatic. There was at least moderate central canal stenosis posterior to C4 at the site of the fracture. Chest CT showed multiple lytic and expansile lesions including the left lateral 4th rib, inferior right scapula, and mid T10 vertebral body. The T10 vertebral body lesion was noted to encroach upon the thecal sac. Smaller nonexpansile lesions were noted within the T4 vertebral body and the spinous process of T11. There were no pulmonary parenchymal lesions noted. A single subcarinal 9 mm lymph node was noted to be possibly necrotic. On 06/28/2021 he underwent anterior discectomy at C3/4 and at C4/5 along with insertion of corpectomy cage C3-C5. Biopsy was obtained from the C4 vertebral body, and the pathology was consistent with metastatic hepatocellular carcinoma. By IHC the tumor cells were positive for hepatocyte, Glypican-3, glutamine synthetase, CK Talon, CK low molecular weight, and AFP. His laboratory studies included baseline tumor markers which showed a significantly elevated AFP level at 2204 ng/mL. His CT abdomen/pelvis on June 29, 2021 showed a very subtle low-attenuation infiltrating lesion in the left lobe of the liver measuring 3.8 x 2.4 cm, felt to possibly represent an early hepatocellular carcinoma. The surface of the liver was noted to be slightly nodular and irregular, suggesting cirrhosis. There was extensive metastatic lytic bone disease including a destructive lesion in the superior left ilium measuring 5.3 x 5.2 cm. The thoracic spine CT showed a left lateral vertebral body lytic lesion at T4 measuring 18 x 10 mm and a large destructive lesion involving greater than 50% of the T10 vertebral body. Tumor extension was noted to be compressing the thoracic cord at T10. There were additional lytic lesions at T2, T6, T11, and T12. There were additional lytic lesions noted on lumbar spine CT at L3 and L4. His hepatitis serology was negative. On 07/04/2021 he underwent T4 kyphoplasty with T4 spine metastasis radiofrequency ablation, T10 spine metastasis radiofrequency ablation, and T7-L1 instrumentation. He had radiation oncology consultation with Dr. Johnson on 07/18/2021, and he then began palliative radiation to the right parietal calvarial lesion. His staging PET/CT on 07/28/2021 showed a poorly defined, marked marginally FDG avid hepatic mass involving segment Rachel, consistent with known hepatocellular carcinoma. Multiple osseous sites of metastatic disease were noted including the lateral right parietal bone, right scapula, sacrum, left humeral head, left fourth rib, left iliac bone, right ischium, and the distal femur bilaterally. There appeared to be inflammatory activity associated with a left clavicle fracture. He completed radiation on 08/01/2021 to a total dose of 3000 cGy administered in 10 fractions. During that time, we had also discussed the possibility of initiating systemic therapy with atezolizumab combination with bevacizumab, per NCCN guidelines. He had opted to defer treatment pending a second opinion evaluation at [facility], which is tentatively scheduled for 17 August. In the meantime, though, he did have a baseline EGD on 07/25/2021. It showed grade B esophageal varices from 25 to 40 cm. His medical history is otherwise significant for type 2 diabetes, GERD, and some chronic anxiety. He has a history of gout. He is a non-smoker, but he has a history of chewing 1 can of tobacco daily for 40 years. He previously had at least moderate alcohol use, reported at 6 beers daily plus occasional whiskey. He has cut down. Family history significant for sister having of colon cancer. She had previously been treated for cervical cancer. His daughter also has been treated for cervical cancer. A paternal aunt had breast cancer, and his grandfather had prostate cancer. He is seen for a follow-up visit. He has not been feeling good. He continues to have pain in his left shoulder and left hip area. He is getting some relief taking liquid morphine along with his fentanyl patch. He also complains that his legs are weak, and he has very limited activity. His ECOG score is 2. Appetite is still okay. He has not had fever. He occasionally has sweating at night. He has not had sore mouth or throat, and he does not have difficulty swallowing. He has a little bit of cough. He does not complain of shortness of breath or chest pain. He still has some nausea. He has not been having acid reflux symptoms. Bowel and bladder function have been okay. He has been having some swelling in the lower extremities. He has a little bit of headache. He has no numbness/paresthesia or other focal neurologic symptoms. Medications: Ativan 1 - 2 Tablet (of 0.5 mg) Oral q 4 hours PRN, Colace 2 Capsule (of 100 mg) Oral daily, Cymbalta 1 Capsule (of 30 mg) Capsule Delayed Release Particles Oral daily, Dexamethasone 1 Tablet (of 4 mg) Oral b.i.d., EQL Senna-S 2 Tablet (of 8.6-50 mg) Oral b.i.d., fentaNYL 1 Patch(es) (of 25 mcg/hr) Patch 72 Hr Transdermal q 3 days, Ibuprofen 1 Tablet (of 800 mg) Oral t.i.d., metFORMIN HCl 1 Tablet (of 500 mg) Oral daily, Morphine Sulfate (Concentrate) 1 - 2 tsp (of 20 mg/mL) Solution Oral q 2 hours, oxyCODONE HCl 1 - 3 Tablet (of 5 mg) Oral q 4 hours PRN, traZODone HCl 1 Tablet (of 100 mg) Oral at bedtime, Trulicity 0.5 mL (of 1.5 mg/0.5mL) Subcutaneous on Prakash, Zegerid OTC 1 Capsule (of 20-1100 mg) Oral daily Allergies: No Known Allergies. Vital Signs: Performed on Aug 06, 2021 08:19 Height - 70.00 in Weight - 255.4 lbs (LOW) BSA - 2.32 sq.m BMI - 36.65 (HIGH) Temperature - 97.6 F (LOW) Pulse - 87 /min Respiration - 16 /min BP - 133/78 mm(hg) O2 Sat - 98 % Pain - 8 Fatigue - 4 Physical Examination: Constitutional - He appears somewhat weak generally, Head - There is a firm mass palpable on the right parietal scalp, just above the ear. It measures about 5 cm, Eyes - Sclerae nonicteric. Conjunctivae clear, ENMT - No lesions noted in the oral cavity, Hematologic/Lymphatic - No cervical, clavicular, or axillary adenopathy, Respiratory - Lungs are clear with good air movement bilaterally, Cardiovascular - Heart rhythm is regular. There is no murmur, gallop, or rub noted, Abdomen - Soft. Liver and spleen are not enlarged. There is no abdominal mass or ascites noted and there is no inguinal adenopathy, Back/Spine - There is an area of soft tissue swelling/firmness overlying the right scapula, Extremities - Mild edema, Neurologic - No focal neurologic deficits noted. Lab/Imaging: Test performed on Jul 18, 2021 10:16 Sodium 133 mmol/L Potassium 4.1 mmol/L Chloride 101 mmol/L CO2 23 mmol/L Anion Gap 13.1 BUN 14 mg/dL Creatinine 0.6 mg/dL Cr Clearance (Est) 250.0700 mL/min eGFR 142.0 mL/min Glucose 108 mg/dL Osmolality - Calculated 277 mOsm/kg Calcium 9.1 mg/dL Protein, Total 6.3 g/dL Albumin 3.2 g/dL Globulin 3.1 g/dL Bilirubin, Total 0.7 mg/dL ALT (SGPT) 67 U/L AST (SGOT) 71 U/L Alkaline Phosphatase 238 IU/L WBC 5.5 10 3/uL RBC 2.70 10 6/uL HGB 9.4 g/dL HCT 28.6 % MCV 105.9 fl MCH 34.8 pg MCHC 32.9 g/dL RDW 13.3 % Platelet Count 127 10 3/cmm MPV 11.0 fL Neutrophils 3.79 10 3/uL Lymphocytes 0.9 10 3/uL Monocytes 0.6 10 3/uL Eosinophils 0.1 10 3/uL Basophils 0.0 10 3/uL Neutrophil % 69.5 % Lymphocyte % 16.8 % Monocyte % 10.6 % Eosinophil % 1.8 % Basophils % 0.2 % NRBC % 0 % Test performed on Jul 02, 2021 10:10 Ferritin 596 ng/mL Iron 42 mcg/dL LDH (Total) 210 U/L Iron Binding Capacity (TIBC) 216 mcg/dl % Iron Saturation 19.4 % UIBC 174 mcg/dL Hepatitis A Ab, IgM Non-Reactive Hepatitis B Core Ab, Total Non-Reactive Hepatitis B Surf Antigen Non-Reactive Hepatitis B Surface Ab < 3.5 STATUS of IMMUINITY Inconsistent with Immunity 0.0 - 8.4 mIU/mL Consistent with Indeterminate Immunity 8.5 - 11.4 mIU/mL Consistent with Immunity >= 11.5 mIU/mL Hepatitis C Ab Non-Reactive Problem List: 1. Hepatocellular carcinoma, by clinical evaluation stage IV (T1b, N0, M1), with mutliple sites of metastatic bone involvement. 2. CT evidence of underlying liver cirrhosis, cause undetermined. There are associated grade B esophageal varices by EGD. 3. Type 2 diabetes. 4. GERD. 5. Gout. 6. History of COVID-19 virus infection in January 2021. 7. Anxiety/depression. Problems Addressed with this Encounter and Plan: 1. Patient with hepatocellular carcinoma, by clinical evaluation stage IV (T1b, N0, M1), with mutliple sites of metastatic bone involvement. The most significant area of involvement was in the C4 vertebral body, for which he underwent C3-4 and C4-5 discectomy with insertion of corpectomy cage at C3-C5. Pathology was consistent with hepatocellular carcinoma. There were additional areas of involvement in the spine, particularly at T4 and T10, for which he underwent T4 kyphoplasty and radiofrequency ablation to T4 and T10. Other significant sites of bone involvement include the right parietal calvarium, right scapula, left rib cage, and left iliac bone. He underwent palliative radiation to the right parietal calvarial lesion, completed on 08/01/2021 to a total dose of 3000 cGy administered in 10 fractions. He has been recommended to begin systemic therapy with atezolizumab in combination with bevacizumab, but that has been temporarily deferred pending second opinion evaluation at [facility]. His treatment also will include denosumab injections for the metastatic bone involvement. 2. He has CT evidence of underlying hepatic cirrhosis. A specific cause has not been determined. His hepatitis serology was negative. He was found to have underlying grade B esophageal varices by EGD. 3. He is mildly anemic. He may have some component of iron deficiency, as his transferrin saturation level was found to be mildly decreased. His ferritin level was elevated at 596 ng/mL, but that is presumed to be an inflammatory response. Signed By: Abdias Chandler M.D. <<Signature on File>>
== END 2021-08-06 23:59 | disposition home or self-care (01) ==
LOC: ONCMED 07:06
PROVIDERS: PCP Family Medicine; Visit Provider Internal Medicine Medical Oncology
DX: Z51.0 Encounter for antineoplastic radiation therapy (principal); C22.0 Liver cell carcinoma; C79.51 Secondary malignant neoplasm of bone; K74.60 Unspecified cirrhosis of liver; I85.00 Esophageal varices without bleeding; E11.9 Type 2 diabetes mellitus without complications; K21.9 Gastro-esophageal reflux disease without esophagitis; M10.9 Gout, unspecified; F41.9 Anxiety disorder, unspecified; F32.9 Major depressive disorder, single episode, unspecified; Z86.16 Personal history of COVID-19; Z79.899 Other long term (current) drug therapy
CPT/HCPCS: 36415; 72040; 73000; 73030; 77290; 77295; 77300; 77334; 77336; 77387; 77412; 80053; 82105; 82607; 83540; 83550; 85007; 85025; 87635; 99205; 99214

== ENCOUNTER 2021-09-04 10:03 | Outpatient (RCR) | payer OTHER, SELFPAY ==
[2021-08-29 11:02] LABS: Basophils % 0.3 %; Hematocrit 32.5 % (42.0-52.0); Hemoglobin 10.7 g/dL (11.7-16.6); Lymphocytes # 0.4 10^3/uL (0.8-4.8); Lymphocytes % 10.5 %; Mean Corpuscular HGB Conc 32.9 g/dL (30.0-36.0); Mean Corpuscular Hemoglobin 30.5 pg (28.0-34.0); Mean Corpuscular Volume 92.6 fl (80-94); Mean Platelet Volume 10.4 fL (7.4-10.4); Monocytes # 0.6 10^3/uL (0.2-0.9); Neutrophils # 2.78 10^3/uL (1.8-7.7); Neutrophils % 73.1 %; Nucleated Red Blood Cells % 0 %; Platelet Count 114 10^3/cmm (130-400); Red Blood Count 3.51 10^6/uL (4.1-5.3); Red Cell Distribution Width 13.8 % (12.1-15.1); White Blood Count 3.8 10^3/uL (4.0-10.0)
[2021-08-29] MEDS: sodium chloride 0.9% 1,000 ML 999 ML IV (11:05)
[2021-08-29 11:18] LABS: Alanine Aminotransferase 83 U/L (0-41); Albumin Level 3.2 g/dL (3.5-5.2); Alkaline Phosphatase 200 IU/L (40-130); Anion Gap 16.3 (5-19); Aspartate Amino Transferase 80 U/L (0-40); Blood Urea Nitrogen 10 mg/dL (6-20); Calcium 8.5 mg/dL (8.5-10.5); Carbon Dioxide 19 mmol/L (22-29); Chloride 96 mmol/L (98-107); Globulin 3.7 g/dL (1.3-4.6); Glomerular Filtration Rate 141.5 mL/min (90-130); Glucose 191 mg/dL (65-115); Osmolality Calculated 268 mOsm/kg (285-295); Potassium 4.3 mmol/L (3.5-5.1); Sodium 127 mmol/L (136-145); Total Bilirubin 1.4 mg/dL (0.15-1.2); Total Protein 6.9 g/dL (6.6-8.7)
[2021-09-04] MEDS: sodium chloride 0.9% 1,000 ML 999 ML IV (10:30)
[2021-09-04 10:46] LABS: Basophils % 0.4 %; Hematocrit 31.1 % (42.0-52.0); Lymphocytes # 0.5 10^3/uL (0.8-4.8); Lymphocytes % 18.7 %; Mean Corpuscular HGB Conc 32.2 g/dL (30.0-36.0); Mean Corpuscular Volume 93.4 fl (80-94); Mean Platelet Volume 10.3 fL (7.4-10.4); Monocytes # 0.5 10^3/uL (0.2-0.9); Monocytes % 18.7 %; Nucleated Red Blood Cells % 0 %; Platelet Count 131 10^3/cmm (130-400); Red Blood Count 3.33 10^6/uL (4.1-5.3); Red Cell Distribution Width 14.4 % (12.1-15.1); White Blood Count 2.5 10^3/uL (4.0-10.0)
[2021-09-04 11:00] LABS: Alanine Aminotransferase 49 U/L (0-41); Albumin Level 2.8 g/dL (3.5-5.2); Alkaline Phosphatase 198 IU/L (40-130); Aspartate Amino Transferase 86 U/L (0-40); Blood Urea Nitrogen 5 mg/dL (6-20); Calcium 8.6 mg/dL (8.5-10.5); Carbon Dioxide 23 mmol/L (22-29); Chloride 95 mmol/L (98-107); Globulin 4.5 g/dL (1.3-4.6); Glomerular Filtration Rate 174.6 mL/min (90-130); Glucose 185 mg/dL (65-115); Osmolality Calculated 268 mOsm/kg (285-295); Sodium 128 mmol/L (136-145); Total Protein 7.3 g/dL (6.6-8.7)
== END 2021-09-06 23:59 | disposition home or self-care (01) ==
LOC: ONCMED 10:03
PROVIDERS: PCP Family Medicine; Visit Provider Internal Medicine Medical Oncology
DX: C22.0 Liver cell carcinoma (principal); C79.51 Secondary malignant neoplasm of bone; Z79.899 Other long term (current) drug therapy
CPT/HCPCS: 80053; 85025; 96360; 96361; J7030

== ENCOUNTER 2021-09-07 23:16 | Emergency (ER) | payer OTHER, SELFPAY ==
[2021-09-07 23:19] VITALS: BP 130/81; PULSE 111; RESP 20; TEMP 36.8; O2SAT 95; BMI 36.6
[2021-09-07 23:28] VITALS: BP 124/70; PULSE 104; RESP 18; O2SAT 91
--- NOTE | 2021-09-07 23:46 | XRR_ITS ---
PROCEDURE INFORMATION: Exam: XR Chest Exam date and time: 09/07/2021 11:55 PM Age: 51 years old Clinical indication: Prior surgery; Surgery type: Cervical fusion. Thoracic. ; Patient HX: General weakness. History of metastatic cancer. ; Additional info: AMS TECHNIQUE: Imaging protocol: XR of the chest. Views: 1 view. COMPARISON: CR XR chest 1V portable [id number] 07/06/2021 2:08 PM FINDINGS: Lungs: Unremarkable. No consolidation. Pleural spaces: Unremarkable. No pleural effusion. No pneumothorax. Heart/Mediastinum: Unremarkable. No cardiomegaly. Bones/joints: Thoracic spine surgical hardware. Other findings: Left upper latter thorax 6.7 cm mass, likely reflects and underlying metastatic focus, increased in size compared to prior exam when it measured approximately 5.3 cm. XR/XR chest 1V portable [id number] IMPRESSION: 1. Left upper latter thorax 6.7 cm mass, likely reflects and underlying metastatic focus, increased in size compared to prior exam when it measured approximately 5.3 cm. 2. Thoracic spine surgical hardware.
--- NOTE | 2021-09-07 23:46 | CTR_ITS ---
PROCEDURE INFORMATION: Exam: CT Head Without Contrast Exam date and time: 09/08/2021 12:44 AM Age: 51 years old Clinical indication: Altered mental status/memory loss and other: General weakness; Patient HX: General weakness with increased confusion. History of metastatic hepatic cancer. With brain lesion. ; Additional info: AMS TECHNIQUE: Imaging protocol: Computed tomography of the head without contrast. Radiation optimization: All CT scans at this facility use at least one of these dose optimization techniques: automated exposure control; mA and/or kV adjustment per patient size (includes targeted exams where dose is matched to clinical indication); or iterative reconstruction. COMPARISON: CT head wo/w con [id number] 06/27/2021 8:13 AM RADIATION DOSE METRICS: Total DLP (mGy-cm): 558.72 FINDINGS: Brain: Right parietal bone destructive metastatic bony lesion with a soft tissue component currently measuring 5.1 x 3.6 cm with some mass effect on the adjacent brain parenchyma, somewhat increased in size compared to prior exam. New compared to prior exam is some associated intraparenchymal hemorrhage along the anterior aspect of the lesion in the frontotemporal lobe measuring up to 19 mm. No midline shift is seen. Additionally some edema is seen in the adjacent brain parenchyma. Cerebral ventricles: Ventricles are somewhat prominent, increased compared to prior exam suggesting a degree of hydrocephalus. Paranasal sinuses: Visualized sinuses are unremarkable. No fluid levels. Mastoid air cells: Visualized mastoid air cells are well aerated. Bones/joints: Unremarkable. No acute fracture. Soft tissues: Unremarkable. CT/CT head wo con* [id number] IMPRESSION: 1. Right parietal bone destructive metastatic bony lesion with a soft tissue component currently measuring 5.1 x 3.6 cm with some mass effect on the adjacent brain parenchyma, somewhat increased in size compared to prior exam. New compared to prior exam is some associated intraparenchymal hemorrhage along the anterior aspect of the lesion in the frontotemporal lobe measuring up to 19 mm. No midline shift is seen. Additionally some edema is seen in the adjacent brain parenchyma. 2. Ventricles are somewhat prominent, increased compared to prior exam suggesting a degree of hydrocephalus.
[2021-09-07 23:58] VITALS: BP 131/72; PULSE 104; RESP 18; O2SAT 92
[2021-09-08] VITALS (9 sets, daily range): BP systolic 109–133; BP diastolic 64–87; PULSE 93–104; RESP 16–18; O2SAT 93–97
--- NOTE | 2021-09-08 | CTR_ITS ---
PROCEDURE INFORMATION: Exam: CT Chest With Contrast; Diagnostic Exam date and time: 09/08/2021 12:49 AM Age: 51 years old Clinical indication: Other: Mass on cxr. ; Prior surgery; Surgery type: Cervical fusion. Thoracic fusion. ; Patient HX: General weakness and C/O flank pain. History of hepatic cancer with bone mets. ; Additional info: Metastatic hepatocell CA, flank pain TECHNIQUE: Imaging protocol: Diagnostic computed tomography of the chest with contrast. Radiation optimization: All CT scans at this facility use at least one of these dose optimization techniques: automated exposure control; mA and/or kV adjustment per patient size (includes targeted exams where dose is matched to clinical indication); or iterative reconstruction. Contrast material: OMNI 300; Contrast volume: 95 ml; Contrast route: INTRAVENOUS (IV); COMPARISON: 1. CT chest w con* [id number] 06/27/2021 8:[address] abdomen pelvis w con* [id number] 06/29/2021 10:57 AM RADIATION DOSE METRICS: Total DLP (mGy-cm): 2927.99 FINDINGS: Lungs: Unremarkable. No consolidation. No masses. Pleural spaces: There is a small left pleural effusion. Heart: Unremarkable. No cardiomegaly. No pericardial effusion. Aorta: There is no thoracic aortic aneurysm or dissection. Lymph nodes: There are mildly prominent paratracheal and prevascular nodes. Largest right paratracheal lymph node measures 10 x 16 mm slightly larger than on the prior study when it measured 7 x 16 mm. Prevascular lymph nodes are slightly more prominent. The subcarinal node measuring approximately 10 mm short axis diameter not significantly changed. There are calcified right hilar nodes in keeping with old granulomatous disease. Bones/joints: There is some radiopaque cement in the T4 vertebral body at the location of a metastatic lesion seen on 06/27/2021. There is new posterior spinal fusion T7 through L1 with bilateral pedicle screws at all levels except for T10. The T10 bone metastasis is larger and there is increased destruction of the posterior vertebral body in what appears to be epidural extension of the bone metastasis possibly with cord compression. Correlation with clinical findings is suggested. Further evaluation with MRI imaging may be helpful to evaluate the status of the metastatic lesion and cord at this level. There is new pathologic fracture of the proximal left clavicle with lytic changes at the level of the fracture suggesting bone metastasis. Clavicles not fully imaged on this exam. Large expansile lytic lesion of left 4th rib is much larger extending medial and laterally to from the rib. The metastatic lesion measures approximately 7 cm in diameter compared with 4 x 5 cm on the prior study. Expansile metastatic lesion of the right scapula is larger measuring 57 x 55 mm compared with 55 x 34 mm on the prior study. Soft tissues: Unremarkable. COMMENTS: THIS REPORT CONTAINS FINDINGS THAT MAY BE CRITICAL TO PATIENT CARE. The findings were verbally communicated via telephone conference with NED BACA at 1:45 AM CDT on 09/08/2021. The findings were acknowledged and understood. PROCEDURE INFORMATION: Exam: CT Abdomen And Pelvis With Contrast Exam date and time: 09/08/2021 12:49 AM Age: 51 years old Clinical indication: Other: Mass on cxr. ; Prior surgery; Surgery type: Cervical fusion. Thoracic fusion. ; Patient HX: General weakness and C/O flank pain. History of hepatic cancer with bone mets. ; Additional info: Metastatic hepatocell CA, flank pain TECHNIQUE: Imaging protocol: Computed tomography of the abdomen and pelvis with contrast. Radiation optimization: All CT scans at this facility use at least one of these dose optimization techniques: automated exposure control; mA and/or kV adjustment per patient size (includes targeted exams where dose is matched to clinical indication); or iterative reconstruction. Contrast material: OMNI 300; Contrast volume: 95 ml; Contrast route: INTRAVENOUS (IV); COMPARISON: 1. CT chest w con* [id number] 06/27/2021 8:[address] abdomen pelvis w con* [id number] 06/29/2021 10:57 AM RADIATION DOSE METRICS: Total DLP (mGy-cm): 2927.99 FINDINGS: Liver: There is subtle nodularity of the liver more prominent than the previous examination. While this could represent regenerating nodules in a cirrhotic patient these raise concern for the possibility of subtle metastatic lesions. The main area of concern in the left lobe on the previous examination is not appreciated on the present study in this may represent improvement in the primary tumor. Gallbladder and bile ducts: There is hydrops of the gallbladder which measures approximately 5 cm in diameter and 14 cm in length with mild nonspecific wall thickening. Please correlate with clinical findings. Pancreas: The pancreas is normal. Spleen: There is moderate nonspecific splenomegaly. The spleen demonstrates punctate calcifications, consistent with remote granulomatous organism exposure. Adrenal glands: The adrenal glands are normal. Kidneys and ureters: The kidneys are normal. There is no evidence of hydronephrosis. There is no evidence of renal or ureteral calcifications. Stomach and bowel: There is mild thickening of the ascending colon which could represent some mild nonspecific colitis. Correlation with clinical findings is suggested. Appendix: No evidence of appendicitis. Intraperitoneal space: Unremarkable. No free air. No significant fluid collection. Vasculature: The aorta is normal. Lymph nodes: There is no evidence of lymphadenopathy. Urinary bladder: Unremarkable as visualized. Reproductive: Unremarkable as visualized. Bones/joints: See Soft tissues finding. Soft tissues: There is small left inguinal hernia containing only fat. There has been significant progression of the bone metastasis within the pelvis with the largest metastasis with associated soft tissue extension in the left iliac crest, soft tissue mass no measures 5 cm compared with 3 and the associated bone lesion is also larger with progression of metastatic lesions in the iliac bones on both sides the pubic symphysis on both sides progression of lesion in the right ischium and multiple small vertebral metastasis in L2 through L5. There is a new area soft tissue extension from 1 of the other left iliac bone lesions. CT/CT chest abd pel w con* IMPRESSION: 1. New metastatic lesion and pathologic fracture of the medial left clavicle. 2. Increase in expansile metastatic lesion of left 4th rib and right scapula. 3. Progression of T10 bone metastasis with suspicion of cord compression. 4. New postsurgical changes in the thoracic spine 5. Slight increase in right paratracheal adenopathy 6. Small left pleural effusion 7. No acute infiltrate. IMPRESSION: 1. Primary tumor in the liver is not as well seen on the present examination in this may represent improvement. 2. There are increasing small nodular lesions in the liver which are worrisome for metastatic disease. 3. Question of colitis involving the right colon. 4. Hydrops of the gallbladder 5. Progression of bone metastasis.
[2021-09-08 00:01] LABS: Basophils % 0.3 %; Hematocrit 33.8 % (42.0-52.0); Hemoglobin 10.8 g/dL (11.7-16.6); Lymphocytes # 0.7 10^3/uL (0.8-4.8); Lymphocytes % 11.8 %; Mean Corpuscular Hemoglobin 29.3 pg (28.0-34.0); Mean Corpuscular Volume 91.8 fl (80-94); Mean Platelet Volume 10.3 fL (7.4-10.4); Monocytes # 0.8 10^3/uL (0.2-0.9); Monocytes % 13.6 %; Neutrophils # 4.42 10^3/uL (1.8-7.7); Neutrophils % 73.5 %; Nucleated Red Blood Cells % 0 %; Platelet Count 159 10^3/cmm (130-400); Red Blood Count 3.68 10^6/uL (4.1-5.3); Red Cell Distribution Width 14.7 % (12.1-15.1)
[2021-09-08] MEDS: ondansetron 2 mg/ML SDV 2 mL 4 MG IVP (00:07)
[2021-09-08] MEDS: sodium chloride 0.9% 1,000 ML 999 ML IV ×2 (00:07→01:13)
[2021-09-08] MEDS: ketorolac 30 mg/mL INJ 15 MG IVP (00:08)
[2021-09-08] MEDS: HYDROmorphone 1 mg/mL INJ 1 mL IVP (00:08)
--- NOTE | 2021-09-08 00:16 | W.ED.WEAKNES ---
HPI - Weakness General: Chief complaint: Weakness Stated complaint: weakness Time Seen by Provider: 09/07/21 23:21 Source: patient and family History of Present Illness: 51-year-old male with a history of metastatic hepatocellular carcinoma. He has multiple metastases to the skull, axial and peripheral skeleton as well as the chest wall. He presents with 3 days of worsening generalized weakness and malaise, he has had some mild mental status changes, and has started not to make as much sense to his and children. He has been more confused. He has not been able to eat or drink much at all in these last 3 days. He has been experiencing increased upper abdominal and flank pain. He has been nauseated this is despite the use of fentanyl patches and liquid morphine. Mental status did not seem to improve even with removal of the fentanyl patch. He supposed to leave in 2 days for further treatment at [facility] in [facility] Complaint: generalized weakness Onset (ago): day(s) (3) Duration: constant and progressively worsening Location: generalized Migration: none Severity: moderate Quality: other Relieving factors: none Exacerbating factors: none Associated symptoms: Reports confusion, headache(s), nausea, short of breath and vomiting; Denies chest pain or fever(s) Review of Systems Const: Denies: fever(s) ENMT: Denies: throat pain Card: Denies: chest pain Resp: Reports: dyspnea; Denies: productive cough or non-productive cough GI: Reports: abdominal pain, nausea and vomiting : Reports: flank pain Musc: Reports: back pain Skin/Breast: Reports: rash Neuro: Reports: headache(s) and confusion PFS ED PFSH: Medical History Anxiety Cervical spine fracture COVID-19 Diabetes mellitus GERD (gastroesophageal reflux disease) Gout Macrocytosis Multiple lesions of metastatic malignancy Pathologic cervical vertebral fracture Surgical History H/O cervical discectomy H/O esophagogastroduodenoscopy (07/25/21) Family History Other CAD (coronary artery disease) Cancer Diabetes Social History Smoking and tobacco status: never smoked Alcohol intake: current Physical Exam Const: GENERAL APPEARANCE: well kempt, lethargic, ill appearing and frail appearing ORIENTATION/CONSCIOUSNESS: Yes lethargic HENMT: COMMON NORMALS: normocephalic, atraumatic and Normal external nose present HEAD & SCALP: normocephalic and atraumatic FACE & SINUS: no edema NOSE: Normal external nose present THROAT: posterior oropharynx normal Eye: COMMON NORMALS: Equal, round and reactive pupils present and EOMs intact bilaterally SCLERA: sclerae normal and scleral abnormal Laterality of scleral abnormality: positive bilateral scleral icterus PUPIL: Yes Equal, round and reactive pupils present Chest: COMMONS NORMALS: normal inspection of the chest Resp: COMMON NORMALS: clear to auscultation bilaterally EFFORT & INSPECTION: Yes tachypneic and Yes labored AUSCULTATION: clear to auscultation bilaterally Cardio: COMMON NORMALS: regular rhythm and Peripheral pulses 2+ throughout RATE: tachycardic RHYTHM: regular rhythm PERIPHERAL PULSES: Peripheral pulses 2+ throughout GI: COMMON NORMALS: Soft to palpation and non-tender PALPATION: Yes Soft to palpation Extremity: GENERAL: No edema Neuro: SENSORIUM/ORIENTATION: Yes lethargic SPEECH: speech normal MOTOR EXAM: Tremors during motor activity present and No Asterixis during motor activity present Psych: APPEARANCE: Yes well kempt Skin: GENERAL SKIN EXAM: jaundice and no purpura Course Vital Signs: Vital signs: Vital Signs Temperature 98.2 F 09/07/21 23:19 Pulse Rate 97 09/08/21 04:02 Respiratory Rate 18 09/08/21 04:02 Blood Pressure 126/64 09/08/21 04:02 Pulse Oximetry 94 09/08/21 04:02 MDM - Weakness Medical Decision Making Patient resting a bit more comfortably, but still restless with some pain. Hemoglobin is stable at 11. White blood cell count is 6. Sodium mildly low at 125. Bicarbonate normal. Creatinine is 0.6. Sugars 244. His blood gas shows a pH of 7.44, with PCO2 of 37 and PO2 of 60. He is placed on a couple liters of oxygen. His head CT shows a similar appearing parietal bone destructive metastatic lesion, there is some mass-effect on the adjacent brain parenchyma, and is mildly increased in size. New, is hemorrhage in the frontotemporal lobe measuring up to 19 mm. There is no midline shift. There is some mild edema. There is likely some mild hydrocephalus as well. CT of the trunk shows progression of T10 bony metastasis with suspicion of cord compression along with new metastatic lesions and increased in size and prior metastatic lesions. Hemorrhage is likely the cause of mental status changes, generalized weakness. The patient has been sick for 3 days or so. He is awake and talking. We have no neurosurgical capabilities at this facility, and no neuro ICU. He is a patient at [facility] in [facility]. We will speak to them, to see if they have any advice. Possibilities are transfer by fixed wing there, versus more emergent transfer to nearest facility with neurosurgery. I ended up speaking with [facility] in [facility]. Physicians at [facility] agreed that more emergent transfer to a facility with neurosurgical capabilities is warranted. They did not have any direct admitt beds at the facility, but the patient was accepted to the emergency department for bed placement once there. Neurosurgery was consulted, and there are no recommendations for emergent surgery at this time, and also no recommendations for steroids. Weather precludes air transfer, so the patient went by ground transfer. Vitals are stable. The patient is feeling some better after IV fluid resusitation. Lab Data : 09/07/21 23:43 09/07/21 23:43 Radiology Impressions Chest X-Ray 09/07/21 23:46 IMPRESSION: 1. Left upper latter thorax 6.7 cm mass, likely reflects and underlying metastatic focus, increased in size compared to prior exam when it measured approximately 5.3 cm. 2. Thoracic spine surgical hardware. Head CT 09/07/21 23:46 IMPRESSION: 1. Right parietal bone destructive metastatic bony lesion with a soft tissue component currently measuring 5.1 x 3.6 cm with some mass effect on the adjacent brain parenchyma, somewhat increased in size compared to prior exam. New compared to prior exam is some associated intraparenchymal hemorrhage along the anterior aspect of the lesion in the frontotemporal lobe measuring up to 19 mm. No midline shift is seen. Additionally some edema is seen in the adjacent brain parenchyma. 2. Ventricles are somewhat prominent, increased compared to prior exam suggesting a degree of hydrocephalus. ADDENDUM: 09/08/21 0119 THIS REPORT CONTAINS FINDINGS THAT MAY BE CRITICAL TO PATIENT CARE. The findings were verbally communicated via telephone conference with WOJCIECH SMITH at 1:18 AM CDT on 09/08/2021. The findings were acknowledged and understood. Chest/Abdomen/Pelvis CT 09/08/21 00:00 IMPRESSION: 1. New metastatic lesion and pathologic fracture of the medial left clavicle. 2. Increase in expansile metastatic lesion of left 4th rib and right scapula. 3. Progression of T10 bone metastasis with suspicion of cord compression. 4. New postsurgical changes in the thoracic spine 5. Slight increase in right paratracheal adenopathy 6. Small left pleural effusion 7. No acute infiltrate. IMPRESSION: 1. Primary tumor in the liver is not as well seen on the present examination in this may represent improvement. 2. There are increasing small nodular lesions in the liver which are worrisome for metastatic disease. 3. Question of colitis involving the right colon. 4. Hydrops of the gallbladder 5. Progression of bone metastasis. Laboratory Results WBC 6.0 10^3/uL (4.0-10.0) 09/07/21 23:43 RBC 3.68 10^6/uL (4.1-5.3) L 09/07/21 23:43 Hgb 10.8 g/dL (11.7-16.6) L 09/07/21 23:43 Hct 33.8 % (42.0-52.0) L 09/07/21 23:43 MCV 91.8 fl (80-94) 09/07/21 23:43 MCH 29.3 pg (28.0-34.0) 09/07/21 23:43 MCHC 32.0 g/dL (30.0-36.0) 09/07/21 23:43 RDW 14.7 % (12.1-15.1) 09/07/21 23:43 Plt Count 159 10^3/cmm (130-400) 09/07/21 23:43 MPV 10.3 fL (7.4-10.4) 09/07/21 23:43 Neut % (Auto) 73.5 % 09/07/21 23:43 Lymph % (Auto) 11.8 % 09/07/21 23:43 [place] % (Auto) 13.6 % 09/07/21 23:43 Eos % (Auto) 0.0 % 09/07/21 23:43 Baso % (Auto) 0.3 % 09/07/21 23:43 Neut # (Auto) 4.42 10^3/uL (1.8-7.7) 09/07/21 23:43 Lymph # (Auto) 0.7 10^3/uL (0.8-4.8) L 09/07/21 23:43 [place] # (Auto) 0.8 10^3/uL (0.2-0.9) 09/07/21 23:43 Eos # (Auto) 0.0 10^3/uL (0.0-0.8) 09/07/21 23:43 Baso # (Auto) 0.0 10^3/uL (0.0-0.1) 09/07/21 23:43 Nucleated RBC % (auto) 0 % 09/07/21 23:43 Nucleated RBCs # 0.0 /100WBC 09/07/21 23:43 PT 14.70 SECONDS (12.1-14.9) 09/07/21 23:43 INR 1.12 (0.8-1.2) 09/07/21 23:43 APTT 35.6 SECONDS (23.9-36.7) 09/07/21 23:43 D-Dimer 3.80 ug/mIFEU (0-0.59) H 09/07/21 23:43 Specimen Type Arterial 09/08/21 00:09 Sample Site Radial, left 09/08/21 00:09 ABG pH 7.44 (7.35-7.45) 09/08/21 00:09 ABG pCO2 36.9 mmHg (35-45) 09/08/21 00:09 ABG pO2 60.7 mmHg (80.0-100.0) L 09/08/21 00:09 ABG HCO3 25.0 mmol/L (22-26) 09/08/21 00:09 ABG Base Excess 1.0 mmol/L (-2.0-2.0) 09/08/21 00:09 Jose Test Pos 09/08/21 00:09 Hematocrit 32.3 % (42-52) L 09/08/21 00:09 O2 Delivery Device None 09/08/21 00:09 Revenue Stamp Clerk ID Hensa 09/08/21 00:09 Sodium 125 mmol/L (136-145) L 09/07/21 23:43 Potassium 4.0 mmol/L (3.5-5.1) 09/07/21 23:43 Chloride 92 mmol/L (98-107) L 09/07/21 23:43 Carbon Dioxide 23 mmol/L (22-29) 09/07/21 23:43 Anion Gap 14.0 (5-19) 09/07/21 23:43 BUN 8 mg/dL (6-20) 09/07/21 23:43 Creatinine 0.6 mg/dL (0.7-1.2) L 09/07/21 23:43 GFR Calculation 141.5 mL/min (90-130) H 09/07/21 23:43 Glucose 244 mg/dL (65-115) H 09/07/21 23:43 Calculated Osmolality 266 mOsm/kg (285-295) L 09/07/21 23:43 Lactate 2.2 mmol/L (0.5-2.2) 09/08/21 00:00 Calcium 8.5 mg/dL (8.5-10.5) 09/07/21 23:43 Phosphorus 2.4 mg/dL (2.5-4.5) L 09/07/21 23:43 Magnesium 1.6 mg/dL (1.7-2.3) L 09/07/21 23:43 Total Bilirubin 1.9 mg/dL (0.15-1.2) H 09/07/21 23:43 AST 134 U/L (0-40) H 09/07/21 23:43 ALT 91 U/L (0-41) H 09/07/21 23:43 Alkaline Phosphatase 215 IU/L (40-130) H 09/07/21 23:43 Ammonia 47 umol/L (16-60) 09/07/21 23:43 C-Reactive Protein 129.8 mg/L (0.0-4.9) H 09/07/21 23:43 Total Protein 6.8 g/dL (6.6-8.7) 09/07/21 23:43 Albumin 3.1 g/dL (3.5-5.2) L 09/07/21 23:43 Globulin 3.7 g/dL (1.3-4.6) 09/07/21 23:43 Procalcitonin 0.56 ng/mL (0-0.5) H 09/07/21 23:43 Urine Color Yellow (Yellow) 09/08/21 02:25 Urine Appearance Clear (CLEAR) 09/08/21 02:25 Urine pH 7 (5-7) 09/08/21 02:25 Ur Specific [place] 1.000 (1.005-1.030) L 09/08/21 02:25 Urine Protein Trace (Negative) 09/08/21 02:25 Urine Glucose (UA) Norm (Normal) 09/08/21 02:25 Urine Ketones Negative (Negative) 09/08/21 02:25 Urine Blood Neg (Negative) 09/08/21 02:25 Urine Nitrate Negative (Negative) 09/08/21 02:25 Urine Bilirubin 1+ (Negative) H 09/08/21 02:25 Urine Urobilinogen 8 mg/dL (Negative) H 09/08/21 02:25 Ur Leukocyte Esterase Negative (Negative) 09/08/21 02:25 Urine RBC 0-4 /hpf (0-2) H 09/08/21 02:25 Urine WBC 0-4 /hpf (0-5) H 09/08/21 02:25 Ur Squamous Epith Cells 0-4 /hpf (0-5) H 09/08/21 02:25 Amorphous Sediment Not Reportable 09/08/21 02:25 Urine Bacteria Trace /hpf (NONE) 09/08/21 02:25 Discharge Plan Discharge Patient Disposition: Xfer Short-Term Hosp Clinical Impression: Cerebral brain hemorrhage, Altered mental status, Cancer, hepatocellular Condition: Serious Prescriptions: No Action metformin 500 mg tablet extended release 24 hr 500 mg PO DAILY@12 0RF omeprazole-sodium bicarbonate [Zegerid OTC] 20-1.1 mg-gram Capsule 1 cap PO DAILY 0RF Trulicity 1.5 mg/0.5 mL pen injector 1.5 mg SUBCUT Q7D 0RF Rx Instructions: on Friday sennosides-docusate sodium [Stool Softener-Laxative] 8.6-50 mg Tablet 1 tab PO BID Qty: 60 0RF naloxone [Narcan] 4 mg/actuation spray,non-aerosol 4 mg intranasal Q2M PRN (Reason: opioid overdose) Qty: 2 0RF Rx Instructions: spray 1 dose into ONE nostril; alternate nostrils w each dose until help arrives lorazepam [Ativan] 0.5 mg tablet 1 mg PO QID PRN (Reason: anxiety) 0RF fentanyl 25 mcg/hr patch 72 hour 50 mcg transdermal Q72H 0RF duloxetine 30 mg capsule,delayed release(DR/EC) 60 mg PO DAILY 0RF morphine concentrate 100 mg/5 mL (20 mg/mL) solution 20 - 40 mg PO Q2H MDD see pharmacy comment PRN (Reason: Pain) 0RF metoclopramide HCl 10 mg Tablet 10 mg PO Q6H PRN (Reason: Nausea) 0RF oxycodone 5 mg Tablet 5 - 15 mg PO BID MDD see pharmacy comment PRN (Reason: Pain) 0RF trazodone 100 mg tablet 150 mg PO BEDTIME PRN (Reason: Insomnia) 0RF Referrals: Jasvir Thomas MD [Primary Care Provider] - Coding Level of Care Code ED Back Up Scan Coordinator for Vincenzog Fwd Exam Comprehensive
[2021-09-08 00:20] LABS: ABG PCO2 36.9 mmHg (35-45); ABG PH Result 7.44 (7.35-7.45); Arterial Blood Gas Hematocrit 32.3 % (42-52); Blood Gas Allen Test Pos; Blood Gas Sample Site Radial, left; Blood Gas Sample Type Arterial; PO2 ABG 60.7 mmHg (80.0-100.0)
[2021-09-08 00:27] LABS: Alanine Aminotransferase 91 U/L (0-41); Albumin Level 3.1 g/dL (3.5-5.2); Alkaline Phosphatase 215 IU/L (40-130); Aspartate Amino Transferase 134 U/L (0-40); Blood Urea Nitrogen 8 mg/dL (6-20); C Reactive Protein 129.8 mg/L (0.0-4.9); Calcium 8.5 mg/dL (8.5-10.5); Carbon Dioxide 23 mmol/L (22-29); Chloride 92 mmol/L (98-107); Globulin 3.7 g/dL (1.3-4.6); Glomerular Filtration Rate 141.5 mL/min (90-130); Glucose 244 mg/dL (65-115); Magnesium 1.6 mg/dL (1.7-2.3); Osmolality Calculated 266 mOsm/kg (285-295); Phosphorus 2.4 mg/dL (2.5-4.5); Sodium 125 mmol/L (136-145); Total Bilirubin 1.9 mg/dL (0.15-1.2); Total Protein 6.8 g/dL (6.6-8.7)
[2021-09-08 00:31] LABS: INR 1.12 (0.8-1.2); Partial Thromboplastin Time 35.6 SECONDS (23.9-36.7)
[2021-09-08 00:33] LABS: Procalcitonin 0.56 ng/mL (0-0.5)
[2021-09-08 00:39] LABS: Ammonia 47 umol/L (16-60)
[2021-09-08 00:47] LABS: Lactate (Lactic Acid level) 2.2 mmol/L (0.5-2.2)
[2021-09-08 02:37] LABS: Add Urine Microscopic? YES; Bilirubin Urine 1+ (Negative); Blood Urine Neg (Negative); Glucose Urine UA Norm (Normal); Ketones Urine Negative (Negative); Leukocyte Esterase Urine Negative (Negative); Nitrate Urine Negative (Negative); Protein Urine Trace (Negative); Urine Appearance Clear (CLEAR); Urine Color Yellow (Yellow); Urobilinogen Urine 8 mg/dL (Negative); pH Urine 7 (5-7)
[2021-09-08 02:42] LABS: Add Urine Culture? No; Bacteria Urine TRACE /hpf; RBC Urine 0-4 /hpf (0-2); Squamous Epithelial Cell Urine 0-4 /hpf (0-5); WBC Urine 0-4 /hpf (0-5)
--- NOTE | 2021-09-08 04:03 | PC.NURSE ---
0355 Report called to Jeny Sosa RN
== END 2021-09-08 04:05 | disposition short-term general hospital (02) ==
PROVIDERS: Emergency Provider Emergency Medicine; PCP Family Medicine
DX: I61.9 Nontraumatic intracerebral hemorrhage, unspecified (principal); C22.0 Liver cell carcinoma; C79.51 Secondary malignant neoplasm of bone; C79.89 Secondary malignant neoplasm of other specified sites; R41.82 Altered mental status, unspecified; E11.9 Type 2 diabetes mellitus without complications
CPT/HCPCS: 36600; 70450; 71045; 71260; 74177; 80053; 81001; 82140; 82803; 83605; 83735; 84100; 84145; 85025; 85378; 85610; 85730; 86140; 87040; 96361; 96374; 96375; 99284; J1170; J1885; J2405; J7030; Q9967

== ENCOUNTER 2021-10-25 17:05 | Emergency (ER) | payer OTHER, SELFPAY ==
[2021-10-25 17:08] VITALS: BP 145/82; PULSE 88; RESP 20; TEMP 36.8; O2SAT 95; BMI 34.4
--- NOTE | 2021-10-25 17:19 | CTR_ITS ---
PROCEDURE INFORMATION: Exam: CT Head Without Contrast Exam date and time: 10/25/2021 5:31 PM Age: 51 years old Clinical indication: Speech disturbance; Slurred speech; Additional info: Symptoms of acute stroke TECHNIQUE: Imaging protocol: Computed tomography of the head without contrast. Radiation optimization: All CT scans at this facility use at least one of these dose optimization techniques: automated exposure control; mA and/or kV adjustment per patient size (includes targeted exams where dose is matched to clinical indication); or iterative reconstruction. COMPARISON: CT head wo con* [id number] 09/08/2021 12:44 AM RADIATION DOSE METRICS: Total DLP (mGy-cm): 956.85 FINDINGS: Brain: There is minimal vasogenic edema in the posterior right temporal lobe adjacent to an extra-axial mass. There is focal displacement of the right temporal lobe at the mass. There is no midline shift. There is no ventricular effacement. There is minimal hypoattenuation in the periventricular white matter suggesting chronic microvascular disease. Cerebral ventricles: There is no significant ventricular dilation. The basal cisterns are unremarkable. Paranasal sinuses: The paranasal sinuses are clear. Mastoid air cells: The mastoid air cells are clear. Bones/joints: There is a moth-eaten pattern of bone destruction in the right parietal skull with an associated soft tissue mass involving the inner table and outer table of the skull. There is an endophytic component protruding into the head, displacing the adjacent posterior temporal lobe. The mass measures 4.6 x 4.4 x 4.0 cm. There is an adjacent 2.2 x 1.6 cm lobulated high attenuation focus slightly increased in size since 09/08/2021. This could represent minimal loculated extra-axial hemorrhage or a tumor component. Soft tissues: The calvarial mass extends 7 mm beyond the outer table of the skull. CT/CT head wo con* [id number] IMPRESSION: 1. 4.6 cm mass centered in the right parietal skull consistent with a malignant neoplasm. 2. Small volume extra-axial blood versus tumor lobule along the anterior margin of the mass is slightly increased in size since 09/08/2021. 3. Minimal mass effect and vasogenic edema in the right temporal lobe adjacent to the mass. No midline shift. No ventricular or cisternal effacement.
--- NOTE | 2021-10-25 17:19 | ECG_ITS ---
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 Measurements Intervals [place] Rate: 90 P: 59 CT: 169 QRS: 56 QRSD: 72 T: 68 QT: 361 QTc: 443 Interpretive Statements SINUS RHYTHM No previous ECG available for comparison Electronically Signed On 10-25-2021 22:53:22 CDT by Lalo Do M.D. [id number]
[2021-10-25 17:22] LABS: Glucose Point of Care 190 mg/dL (70-110)
[2021-10-25 17:30] LABS: Basophils # 0.1 10^3/uL (0.0-0.1); Basophils % 0.7 %; Hematocrit 34.1 % (42.0-52.0); Hemoglobin 11.4 g/dL (11.7-16.6); Lymphocytes # 0.6 10^3/uL (0.8-4.8); Lymphocytes % 7.1 %; Mean Corpuscular HGB Conc 33.4 g/dL (30.0-36.0); Mean Corpuscular Hemoglobin 30.2 pg (28.0-34.0); Mean Corpuscular Volume 90.5 fl (80-94); Mean Platelet Volume 10.8 fL (7.4-10.4); Monocytes # 0.6 10^3/uL (0.2-0.9); Monocytes % 6.7 %; Neutrophils # 6.89 10^3/uL (1.8-7.7); Nucleated Red Blood Cells % 0 %; Platelet Count 94 10^3/cmm (130-400); Red Blood Count 3.77 10^6/uL (4.1-5.3); Red Cell Distribution Width 19.6 % (12.1-15.1); White Blood Count 8.8 10^3/uL (4.0-10.0)
[2021-10-25 17:47] LABS: Alanine Aminotransferase 214 U/L (0-41); Albumin Level 3.2 g/dL (3.5-5.2); Alkaline Phosphatase 298 IU/L (40-130); Anion Gap 16.1 (5-19); Aspartate Amino Transferase 165 U/L (0-40); Blood Urea Nitrogen 29 mg/dL (6-20); Carbon Dioxide 24 mmol/L (22-29); Chloride 100 mmol/L (98-107); Globulin 3.3 g/dL (1.3-4.6); Glomerular Filtration Rate 174.6 mL/min (90-130); Glucose 199 mg/dL (65-115); Osmolality Calculated 293 mOsm/kg (285-295); Potassium 4.1 mmol/L (3.5-5.1); Sodium 136 mmol/L (136-145); Total Bilirubin 1.1 mg/dL (0.15-1.2); Total Protein 6.5 g/dL (6.6-8.7)
[2021-10-25 18:10] LABS: Slide Review Slide Review Perform
--- NOTE | 2021-10-25 18:28 | ED_ITS ---
HPI - Neuro Symptoms/Deficit General: Chief Complaint: Neuro Symptoms/Deficit Stated Complaint: possible stroke Time Seen by Provider: 10/25/21 17:11 History of Present Illness: 51-year-old male presents emergency department chief complaint of strokelike symptoms. Last known well was approximately an hour prior to arrival patient has a known history of metastatic liver cancer to the scalp and to the brain he is undergoing chemotherapy last treatment was over a week ago. Patient last known well was 1 hour ago which patient developed slurred speech difficulty with word finding and right-sided weakness. Upon arrival to ER patient's symptoms were quite resolving fairly quickly. Patient is on dexamethasone for secondary cerebral edema. Patient has had no recent medication change reports no recent infections or any other associated symptoms Associated symptoms: Deny chest pain, malaise, nausea or vomiting Review of Systems General: Reports: 10 or more systems reviewed and unremarkable except in HPI and below Const: Denies: fever(s), chills, fatigue or malaise Eyes: Denies: change in vision or blurry vision Card: Denies: chest pain or palpitations Resp: Denies: dyspnea or productive cough GI: Denies: abdominal pain, nausea or vomiting : Denies: flank pain Musc: Denies: extremity pain or extremity swelling Skin/Breast: Denies: rash or pruritus Neuro: Reports: weakness in extremities, confusion and Slurred speech present; Denies: numbness in extremities Psych: Denies: anxiety or depression Reji/Lymph: Denies: easy bleeding All/Imm: Denies: urticaria, throat swelling or facial swelling PFS ED PFSH: Medical History Anxiety Cervical spine fracture COVID-19 History of COVID-19 virus infection in January 2021. Diabetes mellitus Esophageal varices determined by endoscopy GERD (gastroesophageal reflux disease) Gout Liver cell carcinoma (~07/2021) Stage IVB - T1b, N0, M1 Secondary malignant neoplasm of bone (~06/2021) Surgical History S/P discectomy (~06/28/21) anterior discectomy at C3/4 and at C4/5 along with insertion of corpectomy cage C3-C5 and with biopsy of the C4 vertebral body S/P kyphoplasty (~07/04/21) T4 kyphoplasty with T4 spine metastasis radiofrequency ablation, T10 spine metastasis radiofrequency ablation, and T7-L1 instrumentation Family History Mother Dementia Other CAD (coronary artery disease) Cancer Diabetes Psychiatric illness Denies family history of Clotting disorder Hyperlipidemia Chronic kidney disease (CKD) Suicide Anesthesia complication Bleeding disorder Lung disease Hypertension Stroke Social History Smoking and tobacco status: never smoked Alcohol intake: current Additional social history: He is a non-smoker, but he has a history of chewing 1 can of tobacco daily for 40 years. He previously had at least moderate alcohol use, reported at 6 beers daily plus occasional whiskey. He has cut down. Physical Exam Const: COMMON NORMALS: patient oriented x3 and healthy appearing HENMT: COMMON NORMALS: normocephalic and atraumatic HEAD & SCALP: normocep halic and atraumatic Eye: COMMON NORMALS: Equal, round and reactive pupils present and EOMs intact bilaterally PUPIL: Yes Equal, round and reactive pupils present Neck/C-Spine: COMMON NORMALS: full ROM, supple and no JVD Lymph: LYMPHATIC: no lymphadenopathy noted Chest: COMMONS NORMALS: normal inspection of the chest and normal palpation of entire chest wall Resp: COMMON NORMALS: normal respiratory effort, No retractions and clear to auscultation bilaterally EFFORT & INSPECTION: Yes able to speak in complete sentences and Yes symmetric chest movement AUSCULTATION: clear to auscultation bilaterally Cardio: COMMON NORMALS: no JVD, regular rate and regular rhythm RATE: regular rate RHYTHM: regular rhythm GI: COMMON NORMALS: Normal to inspection, nondistended, normoactive bowel so unds present, Soft to palpation and non-tender INSPECTION: Yes normal to inspection PALPATION: Yes Soft to palpation : COMMON NORMALS: Yes no CVA tenderness BLADDER/KIDNEY EXAM: Yes no CVA tenderness Back/Pelvis: COMMON NORMALS: no CVA tenderness Extremity: COMMON NORMALS: normal to inspection and full ROM Neuro: MYTRLE COMA SCALE: document GCS findings [place] coma scale eye opening: Spontaneous Myrtle coma scale verbal response: Confused [place] coma scale motor response: Obey commands Myrtle coma scale total score: 14 COMMON NORMALS: patient oriented x3 OTHER: Patient has some word salad difficulty with speech no other focal neurodeficits noted on my exam Psych: COMMON NORMALS: mental status grossly normal, Normal thought process present, cooperative and normal affect THOUGHT PROCESS: Normal thought process present Skin: COMMON NORMALS: no rashes or lesions noted GENERAL SKIN EXAM: no rashes or lesions noted Course Vital Signs: Vital signs: Vital Signs Temperature 98.2 F 10/25/21 17:08 Pulse Rate 88 10/25/21 17:08 Respiratory Rate 20 H 10/25/21 17:08 Blood Pressure 145/82 10/25/21 17:08 Pulse Oximetry 95 10/25/21 17:08 MDM - Neuro Symptoms/Deficit Medical Decision Making Due to patient's Tylenol onset and symptoms prior to my arrival patient was stroke activated Dr. Santillan neurologist assessed patient patient not a tPA candidate due to his cancer risk factors and rapid resolution of symptoms in which there is concern patient to be having seizures patient previously was offered antiepileptics that he refused he is currently amenable to Keppra will be bolusing on Keppra at this time additional lab work will be obtained we will continue to follow. At this time patient upon his lab work came back will be started on Keppra outpatient in which she will be subsequent discharged advised further follow-up with his oncologist and neurologist which advised to return in the interim if any of his symptoms persist or worse. Lab Data : 10/25/21 17:20 10/25/21 17:[address] 10/25/21 17:19 IMPRESSION: 1. 4.6 cm mass centered in the right parietal skull consistent with a malignant neoplasm. 2. Small volume extra-axial blood versus tumor lobule along the anterior margin of the mass is slightly increased in size since 09/08/2021. 3. Minimal mass effect and vasogenic edema in the right temporal lobe adjacent to the mass. No midline shift. No ventricular or cisternal effacement. Laboratory Results WBC 8.8 10^3/uL (4.0-10.0) 10/25/21 17:20 RBC 3.77 10^6/uL (4.1-5.3) L 10/25/21 17:20 Hgb 11.4 g/dL (11.7-16.6) L 10/25/21 17:20 Hct 34.1 % (42.0-52.0) L 10/25/21 17:20 MCV 90.5 fl (80-94) 10/25/21 17:20 MCH 30.2 pg (28.0-34.0) 10/25/21 17:20 MCHC 33.4 g/dL (30.0-36.0) 10/25/21 17:20 RDW 19.6 % (12.1-15.1) H 10/25/21 17:20 Plt Count 94 10^3/cmm (130-400) L 10/25/21 17:20 MPV 10.8 fL (7.4-10.4) H 10/25/21 17:20 Neut % (Auto) 78.0 % 10/25/21 17:20 Lymph % (Auto) 7.1 % 10/25/21 17:20 O'Brien % (Auto) 6.7 % 10/25/21 17:20 Eos % (Auto) 0.0 % 10/25/21 17:20 Baso % (Auto) 0.7 % 10/25/21 17:20 Neut # (Auto) 6.89 10^3/uL (1.8-7.7) 10/25/21 17:20 Lymph # (Auto) 0.6 10^3/uL (0.8-4.8) L 10/25/21 17:20 O'Brien # (Auto) 0.6 10^3/uL (0.2-0.9) 10/25/21 17:20 Eos # (Auto) 0.0 10^3/uL (0.0-0.8) 10/25/21 17:20 Baso # (Auto) 0.1 10^3/uL (0.0-0.1) 10/25/21 17:20 Nucleated RBC % (auto) 0 % 10/25/21 17:20 Nucleated RBCs # 0.0 /100WBC 10/25/21 17:20 PT Cancelled 10/25/21 17:20 INR Cancelled 10/25/21 17:20 APTT Cancelled 10/25/21 17:20 Sodium 136 mmol/L (136-145) 10/25/21 17:20 Potassium 4.1 mmol/L (3.5-5.1) 10/25/21 17:20 Chloride 100 mmol/L (98-107) 10/25/21 17:20 Carbon Dioxide 24 mmol/L (22-29) 10/25/21 17:20 Anion Gap 16.1 (5-19) 10/25/21 17:20 BUN 29 mg/dL (6-20) H 10/25/21 17:20 Creatinine 0.5 mg/dL (0.7-1.2) L 10/25/21 17:20 GFR Calculation 174.6 mL/min (90-130) H 10/25/21 17:20 Glucose 199 mg/dL (65-115) H 10/25/21 17:20 POC Glucose 190 mg/dL (70-110) H 10/25/21 17:18 Calculated Osmolality 293 mOsm/kg (285-295) 10/25/21 17:20 Calcium 8.0 mg/dL (8.5-10.5) L 10/25/21 17:20 Total Bilirubin 1.1 mg/dL (0.15-1.2) 10/25/21 17:20 AST 165 U/L (0-40) H 10/25/21 17:20 ALT 214 U/L (0-41) H 10/25/21 17:20 Alkaline Phosphatase 298 IU/L (40-130) H 10/25/21 17:20 Total Protein 6.5 g/dL (6.6-8.7) L 10/25/21 17:20 Albumin 3.2 g/dL (3.5-5.2) L 10/25/21 17:20 Globulin 3.3 g/dL (1.3-4.6) 10/25/21 17:20 Discharge Plan Discharge Patient Disposition: Home Clinical Impression: Seizure, Bone metastases, Cancer of liver, Brain metastases, Cerebral edema, Witnessed seizure-like activity Condition: Stable Prescriptions: New Keppra 500 mg tablet 500 mg PO BID 28 Days Qty: 56 0RF No Action ketorolac 10 mg tablet 10 mg PO Q6H PRN0RF trazodone 150 mg tablet 150 mg PO BEDTIME Qty: 30 0RF dexamethasone 4 mg tablet 4 mg PO QID Qty: 120 0RF oxycodone 10 mg tablet 10 - 20 mg PO Q4H PRN (Reason: pain) 30 Days Qty: 120 0RF alprazolam [Xanax] 0.5 mg tablet 0.5 mg PO TID 0RF Rx Instructions: 1 tablet twice a day, 2 tablets at bedtime insulin regular human 100 unit/mL solution 5 unit SUBCUT TID 0RF Rx Instructions: ADMINISTER before and after meals per sliding scale cbd See Rx Instructions .ROUTE .COMPLEX 0RF Rx Instructions: 1 gummy daily; citalopram 20 mg tablet 20 mg PO DAILY Qty: 67 0RF Rx Instructions: Take 20mg (1 tab) daily for 7 days then increase to 40mg (2 tabs) daily. Lantus U-100 Insulin 100 unit/mL solution 15 unit SUBCUT .QHS Qty: 10 2RF Rx Instructions: TAKE 15 UNITS AT BEDTIME DAILY (DME) insulin syringe-needle U-100 [BD Insulin Syringe Ultra-Fine] 0.3 mL 30 gauge x 1/2 syringe See Rx Instructions .Route Qty: 100 0RF Rx Instructions: As directed omeprazole-sodium bicarbonate [Zegerid OTC] 20-1.1 mg-gram Capsule 1 cap PO DAILY 0RF naloxone [Narcan] 4 mg/actuation spray,non-aerosol 4 mg intranasal Q2M PRN (Reason: opioid overdose) Qty: 2 0RF Rx Instructions: spray 1 dose into ONE nostril; alternate nostrils w each dose until help arrives fentanyl 25 mcg/hr patch 72 hour 75 mcg transdermal Q72H 0RF (DME) Dexcom G6 Sensor Device Qty: 3 0RF Rx Instructions: As Directed Discharge Orders: Discharge ED (Routine); Ordered 10/25/21 Ordered By: Augie Davalos Referrals: Jasvir Thomas MD [Primary Care Provider] - 4-7 days Discharge Diet: Advance as tolerated Discharge Activity: Increase activity as tolerated Patient Instructions: Seizures Activity Restrictions/Additional Instructions: Follow-up with your primary care doctor or oncologist next 2 to 3 days please take medication as provided and please return the interim if any of your symptoms persist or worse. Coding Level of Care Code ED Social Services Specialist for [facility] Exam Comprehensive
[2021-10-25] MEDS: sodium chloride 0.9% 500 ML 999 ML IV (18:50)
[2021-10-25 20:09] VITALS: BP 132/85; PULSE 78; RESP 18; TEMP 36.7; O2SAT 96
== END 2021-10-25 20:11 | disposition home or self-care (01) ==
PROVIDERS: Emergency Provider Emergency Medicine; PCP Family Medicine
DX: R55 Syncope and collapse (principal); G81.91 Hemiplegia, unspecified affecting right dominant side; F10.10 Alcohol abuse, uncomplicated; F17.220 Nicotine dependence, chewing tobacco, uncomplicated; C79.51 Secondary malignant neoplasm of bone; C78.7 Secondary malignant neoplasm of liver and intrahepatic bile duct; C79.31 Secondary malignant neoplasm of brain; G93.6 Cerebral edema; Z79.891 Long term (current) use of opiate analgesic; Z79.4 Long term (current) use of insulin
CPT/HCPCS: 36416; 70450; 80053; 82962; 85025; 93005; 96361; 96374; 99285; J1953; J7040

== ENCOUNTER 2021-10-29 10:12 | Oncology outpatient (recurring) (ONCR) | payer OTHER, SELFPAY ==
[2021-10-24 12:20] LABS: Hematocrit 35.2 % (42.0-52.0); Hemoglobin 11.3 g/dL (11.7-16.6); Mean Corpuscular HGB Conc 32.1 g/dL (30.0-36.0); Mean Corpuscular Volume 93.4 fl (80-94); Mean Platelet Volume 10.1 fL (7.4-10.4); Platelet Count 93 10^3/cmm (130-400); Red Blood Count 3.77 10^6/uL (4.1-5.3); Red Cell Distribution Width 19.4 % (12.1-15.1); White Blood Count 7.3 10^3/uL (4.0-10.0)
[2021-10-24 12:54] LABS: Slide Review Slide Review Perform
[2021-10-24 12:55] LABS: Total Cells Counted 100 (0-100)
[2021-10-24 12:56] LABS: Absolute Neutrophil 6.7 10^3/cmm (1.4-6.5); Absolute Segmented Neutrophil 5.8 10/cmm (1.6-7.1); Band Neutrophils Absolute 0.9 10^3/cmm (0.0-1.2); Eosinophils 1 %; Lymphocytes 3 %; Monocytes Absolute 0.1 10^3/cmm (0.1-0.6); Platelet Estimate Decreased (Normal); Segmented Neutrophils 79 %
[2021-10-24 12:57] LABS: Anisocytosis 1+; Macrocytosis 1+
[2021-10-24 13:02] LABS: Alanine Aminotransferase 190 U/L (0-41); Albumin Level 3.1 g/dL (3.5-5.2); Alkaline Phosphatase 277 IU/L (40-130); Anion Gap 15.1 (5-19); Aspartate Amino Transferase 125 U/L (0-40); Blood Urea Nitrogen 25 mg/dL (6-20); Calcium 7.8 mg/dL (8.5-10.5); Carbon Dioxide 24 mmol/L (22-29); Chloride 97 mmol/L (98-107); Globulin 2.9 g/dL (1.3-4.6); Glomerular Filtration Rate 225.9 mL/min (90-130); Glucose 264 mg/dL (65-115); Osmolality Calculated 288 mOsm/kg (285-295); Potassium 4.1 mmol/L (3.5-5.1); Sodium 132 mmol/L (136-145)
[2021-10-25] MEDS: sodium chloride 0.9% 250 ML 75 ML IV (13:54)
[2021-10-25] MEDS: atezolizumab 1,200 MG in sodium chloride 0.9% 250 ML 270 MG IV (13:55)
[2021-10-25 15:18] VITALS: BP 131/73; PULSE 76; TEMP 37.1; O2SAT 76
== END 2021-11-06 23:59 | disposition home or self-care (01) ==
PROVIDERS: Nurse Practitioner Family; PCP Family Medicine; Visit Provider Internal Medicine Medical Oncology
DX: C22.0 Liver cell carcinoma (principal); F10.20 Alcohol dependence, uncomplicated; C79.51 Secondary malignant neoplasm of bone
CPT/HCPCS: 36415; 80053; 82105; 85007; 85025; 96413; 99214; 99215; J7050; J9022

== ENCOUNTER 2021-11-14 08:00 | Oncology outpatient (recurring) (ONCR) | payer OTHER, SELFPAY ==
--- NOTE | 2021-11-13 | CT_ITS ---
Radiation Therapy Planning CT images; total exam DLP: 1281.39 mGy-cm MTDD
== END 2021-11-29 23:59 | disposition home or self-care (01) ==
PROVIDERS: PCP Family Medicine; Visit Provider Radiology Radiation Oncology
DX: Z51.0 Encounter for antineoplastic radiation therapy (principal); C22.0 Liver cell carcinoma; C79.51 Secondary malignant neoplasm of bone; F10.20 Alcohol dependence, uncomplicated
CPT/HCPCS: 77014; 77263; 77280; 77387; 77412; 99214

== ENCOUNTER 2021-11-20 06:00 | Outpatient (CLI) | payer OTHER, SELFPAY ==
[2021-11-20 21:26] LABS: Basophils % 0.5 %; Hematocrit 37.2 % (42.0-52.0); Hemoglobin 11.5 g/dL (11.7-16.6); Lymphocytes # 0.2 10^3/uL (0.8-4.8); Lymphocytes % 3.6 %; Mean Corpuscular HGB Conc 30.9 g/dL (30.0-36.0); Mean Corpuscular Hemoglobin 30.7 pg (28.0-34.0); Mean Corpuscular Volume 99.5 fl (80-94); Mean Platelet Volume 10.5 fL (7.4-10.4); Monocytes # 0.4 10^3/uL (0.2-0.9); Monocytes % 6.1 %; Neutrophils % 84.6 %; Nucleated Red Blood Cells % 0 %; Platelet Count 95 10^3/cmm (130-400); Red Blood Count 3.74 10^6/uL (4.1-5.3); Red Cell Distribution Width 19.2 % (12.1-15.1); White Blood Count 5.9 10^3/uL (4.0-10.0)
[2021-11-20 21:48] LABS: Alanine Aminotransferase 141 U/L (0-41); Alkaline Phosphatase 360 IU/L (40-130); Anion Gap 16.8 (5-19); Aspartate Amino Transferase 114 U/L (0-40); Blood Urea Nitrogen 18 mg/dL (6-20); Calcium 8.4 mg/dL (8.5-10.5); Carbon Dioxide 26 mmol/L (22-29); Chloride 96 mmol/L (98-107); Globulin 3.3 g/dL (1.3-4.6); Glomerular Filtration Rate 225.9 mL/min (90-130); Glucose 131 mg/dL (65-115); Magnesium 2.3 mg/dL (1.7-2.3); Osmolality Calculated 284 mOsm/kg (285-295); Potassium 3.8 mmol/L (3.5-5.1); Sodium 135 mmol/L (136-145); Total Protein 6.3 g/dL (6.6-8.7)
[2021-11-21 00:16] LABS: Slide Review Slide Review Perform
== END 2021-11-20 06:01 | disposition home or self-care (01) ==
LOC: ONCMED 03-18 20:16
PROVIDERS: PCP Family Medicine; Visit Provider Internal Medicine Medical Oncology
DX: C79.51 Secondary malignant neoplasm of bone (principal); C22.0 Liver cell carcinoma
CPT/HCPCS: 80053; 83735; 85025